=== PATIENT | male | born 1945 | race Caucasian/White ===

== ENCOUNTER 2016-07-25 12:11 | Outpatient (RCR) | payer MEDICARE ==
[2016-06-20 14:21] LABS: BASOPHILS % (AUTO) 0 % (0-10); EOSINOPHILS # (AUTO) 0.1 10^3/uL (0.0-0.3); EOSINOPHILS % (AUTO) 2 % (0-10); LYMPHOCYTES # (AUTO) 1.8 X 10^3 (1.0-4.0); LYMPHOCYTES % (AUTO) 24 % (12-44); MEAN CORPUSCULAR HEMOGLOBIN 32 PG (25-34); MEAN CORPUSCULAR HGB CONC 34 G/DL (32-36); MEAN CORPUSCULAR VOLUME 93 FL (80-99); MEAN PLATELET VOLUME 8.6 FL (7.4-10.4); MONOCYTES # (AUTO) 0.8 X 10^3 (0.0-1.0); MONOCYTES % (AUTO) 11 % (0-12); NEUTROPHILS # (AUTO) 4.6 X 10^3 (1.8-7.8); NEUTROPHILS % (AUTO) 63 % (42-75); PLATELET COUNT 162 10^3/uL (130-400); RED BLOOD COUNT 4.47 10^6/uL (4.35-5.85); RED CELL DISTRIBUTION WIDTH 13.5 % (10.0-14.5); WHITE BLOOD COUNT 7.3 10^3/uL (4.3-11.0)
[2016-06-20 14:57] LABS: ALBUMIN 3.9 G/DL (3.2-4.5); BILIRUBIN,TOTAL 0.6 MG/DL (0.1-1.0); CALCIUM 10.3 MG/DL (8.5-10.1); CREATININE SERUM 1.99 MG/DL (0.60-1.30); TOTAL PROTEIN 7.7 G/DL (6.4-8.2)
[2016-07-11 15:10] LABS: BASOPHILS % (AUTO) 1 % (0-10); EOSINOPHILS # (AUTO) 0.1 10^3/uL (0.0-0.3); EOSINOPHILS % (AUTO) 2 % (0-10); LYMPHOCYTES # (AUTO) 1.6 X 10^3 (1.0-4.0); LYMPHOCYTES % (AUTO) 24 % (12-44); MEAN CORPUSCULAR HEMOGLOBIN 32 PG (25-34); MEAN CORPUSCULAR HGB CONC 34 G/DL (32-36); MEAN CORPUSCULAR VOLUME 92 FL (80-99); MEAN PLATELET VOLUME 9.2 FL (7.4-10.4); MONOCYTES # (AUTO) 0.9 X 10^3 (0.0-1.0); MONOCYTES % (AUTO) 13 % (0-12); NEUTROPHILS # (AUTO) 4.2 X 10^3 (1.8-7.8); NEUTROPHILS % (AUTO) 61 % (42-75); PLATELET COUNT 170 10^3/uL (130-400); RED BLOOD COUNT 4.51 10^6/uL (4.35-5.85); RED CELL DISTRIBUTION WIDTH 13.6 % (10.0-14.5); WHITE BLOOD COUNT 6.8 10^3/uL (4.3-11.0)
[2016-07-11 15:12] LABS: PEP REPORT SEE PATH REPORT
[2016-07-11 15:38] LABS: ALBUMIN 3.9 G/DL (3.2-4.5); BILIRUBIN,TOTAL 0.5 MG/DL (0.1-1.0); CALCIUM 9.9 MG/DL (8.5-10.1); CREATININE SERUM 1.8 MG/DL (0.60-1.30); TOTAL PROTEIN 7.7 G/DL (6.4-8.2)
[2016-07-12 02:44] LABS: LIGHT CHAIN KAPPA SERUM QUANT 67.94 mg/L (3.30-19.40); LIGHT CHAIN LAMBDA SERUM QUANT 25.25 mg/L (5.71-26.30)
[2016-07-12 08:01] LABS: PTH INTACT IRMA 40 pg/mL (10-65)
[2016-07-14 06:45] LABS: CLIN PATHOLOGY REPORT FOOTNOTE; SERUM PROTEIN ELEC DETAIL L-16-0014220
[~2016-07-25 12:11] MED LIST: ASP325T PO; ASPI325T32 PO; METO-333 PO; RAMI2.5C PO
[2016-07-25 12:24] LABS: RED BLOOD COUNT 4.49 10^6/uL (4.35-5.85); RETICULOCYTE % 0.92 % (0.50-2.40)
[2016-07-27 13:58] LABS: IMMUNOGLOBULIN IGG 1355 MG/DL (672-1680)
[2016-07-27 13:59] LABS: IMMUNOGLOBULIN IGM 917 H MG/DL (47-209)
[2016-07-27 14:03] LABS: IMMUNOGLOBULIN IGA 201 MG/DL (71-263)
== END 2016-09-18 | disposition home or self-care (01) ==
LOC: ONC 12:11
PROVIDERS: ATTEND Internal Medicine Hematology & Oncology
DX: D69.59 Other secondary thrombocytopenia (principal); E11.22 Type 2 diabetes mellitus with diabetic chronic kidney disease; N18.3 Chronic kidney disease, stage 3 (moderate); E83.52 Hypercalcemia; I25.10 Atherosclerotic heart disease of native coronary artery without angina pectoris; Z79.899 Other long term (current) drug therapy
CPT/HCPCS: 36415; 80053; 80074; 82232; 82784; 83735; 83883; 83970; 84153; 84155; 84165; 85025; 85045; 85810; 86880; 99213; 99214

== ENCOUNTER → 2017-09-19 | Outpatient (CLI) | payer MEDICARE ==
--- NOTE | 2017-09-19 13:43 | Diagnostic Imaging Report ---
INDICATION: Low back pain. TIME OF EXAM: 1:20 PM. COMPARISON: No prior studies are available for comparison. FINDINGS: The curvature of the lumbar spine is normal. There appears to be a mild inferior endplate compression involving the L2 vertebral body, age indeterminate. The remaining lumbar vertebrae demonstrate normal stature. No retropulsion is seen. There is significant degenerative disc disease at the L3-4 level with disc space narrowing and marginal osteophyte formation. There is vacuum disc phenomena. The aorta is calcified. IMPRESSION: Age-indeterminate mild inferior endplate central compression of the L2 vertebral body. MRI could be performed to evaluate acuity. Dictated by: Dictated on workstation # [id number]
== END ==
LOC: RAD 12:49
PROVIDERS: ATTEND Nurse Practitioner Family
DX: M54.5 Low back pain (principal)
CPT/HCPCS: 72100

== ENCOUNTER → 2017-09-25 | Outpatient (CLI) | payer MEDICARE ==
--- NOTE | 2017-09-25 10:47 | Diagnostic Imaging Report ---
CLINICAL INDICATION: Patient has low back pain which is not getting better. EXAM: MRI of the lumbar spine performed without IV contrast. Sagittal T2, sagittal T1, sagittal T2 fat-sat, coronal T2, and axial T2. COMPARISON: X-ray of the lumbar spine dated 09/19/2017. CT scan of the abdomen and pelvis without contrast dated 03/15/2011. FINDINGS: There is a 3.1 cm septated appearing cyst involving the mid portion of the left kidney. Patient was noted to have a cyst on the prior study and is not significantly changed in size. There is a roughly 40% compression deformity involving the L2 vertebral body which demonstrates moderate amount of marrow edema. There is no retropulsed fragment seen. There is mixed Modic type I and type II degenerative signal changes involving the L3-L4 endplates. There is mild Modic type II degenerative signal changes involving the L4-L5 and L5-S1 levels. The remainder of the lumbar vertebral body signal is unremarkable. Visualized portion of the distal thoracic spinal cord, conus medullaris, and cauda equina nerve roots are unremarkable. There is no significant paraspinal soft tissue abnormality. There is multilevel thoracolumbar spine degenerative disease with hypertrophic spurs and facet arthropathy. L1-L2: There is mild asymmetric diffuse disc bulge which causes mild central canal narrowing and no significant neural foramen narrowing. T12-L1: There is mild diffuse disc bulge and mild loss of intervertebral disc height. There is mild impression upon the thecal sac anteriorly. There is no significant neural foramen narrowing. L1-L2: There is xnmb-yl-yoosfwvk facet arthropathy and minimal ligament flavum buckling. There is no significant posterior disc bulge. There is mild left neural foramen narrowing. There is no significant central spinal canal or right neural foramen narrowing. L2-L3: There is moderate bilateral facet arthropathy and ligament flavum buckling. There is a small disc extrusion/herniation with disc spurs extending into the left foraminal region causing moderate left neural foramen narrowing. There is also facet arthropathy and mild disc bulge causing moderate right neural foramen narrowing. There is moderate central canal narrowing. L3-L4: There is a diffuse disc bulge with moderate to severe loss of intervertebral disc height, endplate irregularity and disc spurs extending into the foraminal regions bilaterally. There is severe left facet arthropathy/hypertrophy and moderate right facet arthropathy. There is ligament flavum buckling. There is severe central canal narrowing and severe bilateral neural foramen narrowing. L4-5: There is mild diffuse disc bulge and moderate right facet arthropathy and moderate left facet arthropathy/hypertrophy. There is ligament flavum buckling. There is wezp-jf-fdiwfkpl central canal narrowing and trqp-tx-mxdseylt bilateral neural foramen narrowing. L5-S1: There is no significant disc bulge. There is moderate bilateral facet arthropathy. There is no significant central canal narrowing. There is no significant neural foramen narrowing. IMPRESSION: 1: There is an acute or subacute compression deformity of the L2 vertebral body. There is no retropulsed fragment. 2: There is ajpkkiqc-wh-idlqjt multilevel lumbar spine degenerative disc disease with diffuse disc bulges, disc herniations, and facet arthropathy. 3: There is no significant change to the septated left renal cyst. Report was called to Roberta Mahmood APRN by ricky at 10:46am. Dictated by: Dictated on workstation # [id number]
== END ==
LOC: RAD 07:51
PROVIDERS: ATTEND Nurse Practitioner Family
DX: M51.26 Other intervertebral disc displacement, lumbar region (principal); M51.36 Other intervertebral disc degeneration, lumbar region; M46.86 Other specified inflammatory spondylopathies, lumbar region
CPT/HCPCS: 72148

== ENCOUNTER 2019-08-03 09:49 | Inpatient (IN) | payer MEDICARE ==
[~2019-08-03] VITALS: Ht 177.8 cm; Wt 92.7 kg
[2019-08-03] MEDS ORDERED: fentaNYL INJECTION 100 MCG/2 ML AMP IVP STA (10:03)
--- NOTE | 2019-08-03 10:12 | ED Fall/Injury ---
General Chief Complaint: Chest Wall Stated Complaint: RECENT FALL/ABD PAIN Source: patient History of Present Illness Date Seen by Provider: Aug 03, 2019 Time Seen by Provider: 09:53 Initial Comments PT ARRIVES VIA POV FROM HOME, NEEDS WHEELCHAIR ON ARRIVAL STATES LAST Sunday07/29/19, HE STARTED TO GET ON A LADDER, STEPPED ON THE FIRST RUNG AND THE LADDER FELL, AND HE FELL BACKWARDS AND LANDED ON HIS BACK ON THE RAMP TO THE PORCH. DID BUMP THE BACK OF HIS HEAD, BUT NO LOSS OF CONSCIOUSNESS STATES HIS BACK DID NOT HURT AT THE TIME, AND DID NOT HAVE PAIN ANYWHERE UNTIL SUNDAY SINCE SUNDAY (THANKSGIVING) HE HAS HAD SEVERE PAIN ALL ACROSS HIS UPPER ABDOMEN (LATER STATES HE IS ALSO HAVING PAIN ALL ACROSS HIS BACK WELL) PAIN IS SEVERE WITH MOVEMENTS, BREATHING, COUGHING OR SNEEZING,OR WITH LAYING DOWN STATES IT FEELS BEST WHEN HE IS BENT AT WAIST NO NAUSEA/VOMITING/DIARRHEA NO FEVER NO SIGNIFICANT COUGH NO CHEST PAIN NO SHORTNESS OF BREATH, JUST HURTS TO BREATHE NO PARESTHESIAS OR MOTOR DEFICITS NO PROBLEMS URINATING OR HAVING BM'S NO RELIEF WITH TYLENOL/MOTRIN OR TRAMADOL--TOOK 1 DOSE OF TRAMADOL YESTERDAY WITHOUT RELIEF. 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 LOMAS Allergies and Home Medications Allergies Coded Allergies: IV Dye, Iodine Containing (Verified Allergy, Unknown, 03/20/06) Ibbumxc-Lxp-Dyt Reductase Inhibitor (Verified Allergy, Unknown, 03/15/11) morphine (Verified Allergy, Unknown, 03/20/06) Home Medications Aspirin 325 Mg Tab, 325 MG PO DAILY, (Reported) Metoprolol Tartrate 25 Mg Tablet, 25 MG PO BID, (Reported) Ramipril 2.5 Mg Capsule, 2.5 MG PO DAILY, (Reported) Patient Home Medication List Home Medication List Reviewed: Yes Review of Systems Review of Systems Constitutional: no symptoms reported Eyes: No Symptoms Reported Ears, Nose, Mouth, Throat: no symptoms reported Respiratory: see HPI Cardiovascular: see HPI Gastrointestinal: see HPI Genitourinary: no symptoms reported Musculoskeletal: see HPI Skin: no symptoms reported Psychiatric/Neurological: Anxiety; Denies Headache, Denies Numbness, Denies Paresthesia, Denies Seizure, Denies Tingling, Denies Weakness Past Vgbvjto-Sbqrff-Qlfivg Hx Patient Social History Alcohol Use: Denies Use Recreational Drug Use: No Smoking Status: Never a Smoker Recent Foreign Travel: No Contact w/Someone Who Travel: No Past Medical History Surgeries: Yes (UMBILICAL HERNIA REPAIR; LIVER BIOPSY; CHOLECYSTECTOMY; CARDIAC CATH WITH ANGIOPLASTY AND STENT X 1; KYPOHOPLASTY L2, L5; LUMBAR LAMINECTOMY L3- L5) Abdominal, Cardiac, Coronary Stent, Gallbladder, Orthopedic Respiratory: No Cardiac: Yes (CARDIAC CATH WITH ANGIOPLASTY AND STENT X 1 ) Coronary Artery Disease, Heart Attack, High Cholesterol, Hypertension Neurological: No Reproductive Disorders: No Genitourinary: Yes (CHRONIC RENAL INSUFFICIENCY) Renal Failure Gastrointestinal: Yes (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 ) Diabetes, Non-Insulin dep HEENT: No Cancer: No Psychosocial: No Integumentary: No Blood Disorders: No Physical Exam Vital Signs Vital Signs - First Documented 08/03/19 10:01 Temp 36.4 Pulse 84 Resp 20 B/P (MAP) 118/83 (95) Pulse Ox 99 O2 Delivery Room Air Capillary Refill : Height, Weight, BMI Height: '" Weight: lbs. oz. kg; BMI Method: General Appearance: other (OBESE, SITTING IN CHAIR BENT AT WAIST. LOOKS UNCOMFORTABLE.) Neck: non-tender Cardiovascular: regular rate, rhythm, no murmur Respiratory: other (DIFFUSE MID AND LOWER CHEST TENDERNESS) Gastrointestinal: soft, tenderness (DIFFUSE MID AND UPPER ABDOMINAL TENDERNESS) Back: decreased range of motion, other (DIFFUSE TENDERNESS TO ENTIRE BACK, BUT MOST TENDER IN MID BACK) Extremities: normal capillary refill, pedal edema (1 + BILATERALLY) Neurologic/Psychiatric: fagot heater helper II-XII nml as tested, no motor/sensory deficits, alert, oriented x 3 Skin: normal color, warm/dry Progress/Results/Core Measures Results/Orders Lab Results Laboratory Tests Test 08/03/19 10:12 08/03/19 11:30 08/03/19 16:55 Range/Units White Blood Count 7.3 4.3-11.0 10^3/uL Red Blood Count 4.54 4.35-5.85 10^6/uL Hemoglobin 14.3 13.3-17.7 G/DL Hematocrit 42 40-54 % Mean Corpuscular Volume 92 80-99 FL Mean Corpuscular Hemoglobin 32 25-34 PG Mean Corpuscular Hemoglobin Concent 34 32-36 G/DL Red Cell Distribution Width 13.6 10.0-14.5 % Platelet Count 121 L 130-400 10^3/uL Mean Platelet Volume 9.9 7.4-10.4 FL Neutrophils (%) (Auto) 72 42-75 % Lymphocytes (%) (Auto) 17 12-44 % Monocytes (%) (Auto) 10 0-12 % Eosinophils (%) (Auto) 1 0-10 % Basophils (%) (Auto) 0 0-10 % Neutrophils # (Auto) 5.2 1.8-7.8 X 10^3 Lymphocytes # (Auto) 1.2 1.0-4.0 X 10^3 Monocytes # (Auto) 0.7 0.0-1.0 X 10^3 Eosinophils # (Auto) 0.1 0.0-0.3 10^3/uL Basophils # (Auto) 0.0 0.0-0.1 10^3/uL Prothrombin Time 13.7 12.2-14.7 SEC INR Comment 1.0 0.8-1.4 Activated Partial Thromboplast Time 21 L 24-35 SEC Sodium Level 136 135-145 MMOL/L Potassium Level 4.3 3.6-5.0 MMOL/L Chloride Level 104 98-107 MMOL/L Carbon Dioxide Level 18 L 21-32 MMOL/L Anion Gap 14 5-14 MMOL/L Blood Urea Nitrogen 21 H 7-18 MG/DL Creatinine 1.76 H 0.60-1.30 MG/DL Estimat Glomerular Filtration Rate 38 BUN/Creatinine Ratio 12 Glucose Level 135 H 70-105 MG/DL Calcium Level 10.8 H 8.5-10.1 MG/DL Corrected Calcium 10.7 H 8.5-10.1 MG/DL Magnesium Level 1.7 1.6-2.4 MG/DL Total Bilirubin 0.8 0.1-1.0 MG/DL Aspartate Amino Transf (AST/SGOT) 21 5-34 U/L Alanine Aminotransferase (ALT/SGPT) 21 0-55 U/L Alkaline Phosphatase 68 40-136 U/L Total Creatine Kinase 44 30-200 U/L Creatine Kinase MB 2.2 <6.6 NG/ML Troponin I < 0.028 <0.028 NG/ML B-Type Natriuretic Peptide 98.8 <100.0 PG/ML Total Protein 8.4 H 6.4-8.2 GM/DL Albumin 4.1 3.2-4.5 GM/DL Amylase Level 54 25-125 U/L Lipase 24 8-78 U/L Urine Color YELLOW Urine Clarity CLEAR Urine pH 5.5 5-9 Urine Specific [place] 1.025 H 1.016-1.022 Urine Protein NEGATIVE NEGATIVE Urine Glucose (UA) NEGATIVE NEGATIVE Urine Ketones NEGATIVE NEGATIVE Urine Nitrite NEGATIVE NEGATIVE Urine Bilirubin NEGATIVE NEGATIVE Urine Urobilinogen 0.2 < = 1.0 MG/DL Urine Leukocyte Esterase NEGATIVE NEGATIVE Urine RBC (Auto) NEGATIVE NEGATIVE Urine RBC NONE /HPF Urine WBC NONE /HPF Urine Squamous Epithelial Cells RARE /HPF Urine Crystals NONE /LPF Urine Bacteria NEGATIVE /HPF Urine Casts NONE /LPF Urine Mucus SMALL H /LPF Urine Culture Indicated NO My Orders Orders - STEVE MANZO DO Ed Iv/Invasive Line Start (08/03/19 10:03) Ekg Tracing (08/03/19 10:03) Monitor-Rhythm Ecg Trace Only (08/03/19 10:03) Chest 1 View, Ap/Pa Only (08/03/19 10:03) Amylase (08/03/19 10:03) BNP (08/03/19 10:03) Cbc With Automated Diff (08/03/19 10:03) Comprehensive Metabolic Panel (08/03/19 10:03) Creatine Kinase (08/03/19 10:03) Creatine Kinase Mb (08/03/19 10:03) Lipase (08/03/19 10:03) Magnesium (08/03/19 10:03) Protime With Inr (08/03/19 10:03) Partial Thromboplastin Time (08/03/19 10:03) Ua Culture If Indicated (08/03/19 10:03) Troponin I (08/03/19 10:03) Fentanyl Injection (Sublimaze Injection (08/03/19 10:03) Ct Chest/Abdomen/Pelvis Wo (08/03/19 10:03) Fentanyl Injection (Sublimaze Injection (08/03/19 11:00) Fentanyl Injection (Sublimaze Injection (08/03/19 11:00) Fentanyl Injection (Sublimaze Injection (08/03/19 11:45) Orphenadrine Injection (Norflex Injectio (08/03/19 12:30) Diphenhydramine Injection (Benadryl Inje (08/03/19 12:30) Hydromorphone Injection (Dilaudid Inject (08/03/19 13:15) Ed Iv/Invasive Line Start (08/03/19 13:13) Ns Iv 1000 Ml (Sodium Chloride 0.9%) (08/03/19 13:13) Hydromorphone Injection (Dilaudid Inject (08/03/19 15:30) Orphenadrine Injection (Norflex Injectio (08/03/19 15:30) Hydromorphone Injection (Dilaudid Inject (08/03/19 16:45) Ed Iv/Invasive Line Start (08/03/19 16:55) Ed Iv/Invasive Line Start (08/03/19 16:55) Ns Iv 1000 Ml (Sodium Chloride 0.9%) (08/03/19 16:55) Medications Given in ED Current Medications Medications Dose Ordered Sig/Edelmira Route Start Time Stop Time Status Last Admin Dose Admin Diphenhydramine HCl 25 mg ONCE ONCE IVP 08/03/19 12:30 08/03/19 12:31 DC 08/03/19 12:29 25 MG Fentanyl Citrate 50 mcg ONCE ONCE IVP 08/03/19 11:00 08/03/19 11:01 DC 08/03/19 10:55 50 MCG Fentanyl Citrate 50 mcg ONCE ONCE IVP 08/03/19 11:00 08/03/19 11:01 DC 08/03/19 11:11 50 MCG Fentanyl Citrate 50 mcg ONCE ONCE IVP 08/03/19 11:45 08/03/19 11:46 DC 08/03/19 11:50 50 MCG Hydromorphone HCl 0.5 mg ONCE ONCE IV 08/03/19 16:45 08/03/19 16:46 DC 08/03/19 17:10 0.5 MG Hydromorphone HCl 1 mg ONCE ONCE IV 08/03/19 13:15 08/03/19 13:16 DC 08/03/19 13:19 1 MG Hydromorphone HCl 1 mg ONCE ONCE IV 08/03/19 15:30 08/03/19 15:31 DC 08/03/19 16:02 1 MG Orphenadrine Citrate 60 mg ONCE ONCE IV 08/03/19 12:30 08/03/19 12:31 DC 08/03/19 12:28 60 MG Orphenadrine Citrate 60 mg ONCE ONCE IV 08/03/19 15:30 08/03/19 15:31 DC 08/03/19 16:02 60 MG Vital Signs/I&O 08/03/19 10:01 Temp 36.4 Pulse 84 Resp 20 B/P (MAP) 118/83 (95) Pulse Ox 99 O2 Delivery Room Air Progress Progress Note : Progress Note EXHAUSTIVE EFFORTS TO OBTAIN CT --PT STATES IT HURTS TO LAY FLAT--STATES HIS BACK MUSCLES "SPASM", AND HE IS HAVING PAIN IN SIDES OF HIS ABDOMEN AND REFUSES TO LAY DOWN ON CT TABLE--GIVEN FENTANYL, NORFLEX, DILAUDID--MULTIPLE DOSES OF EACH. REFUSES TO TAKE BENADRYL--STATES IT "CAUSES THE OPPOSITE EFFECT" EXPLAINED TO PT MULTIPLE TIMES THE IMPORTANCE OF THE TEST, HE IS STILL CONTINUING TO C/O "SEVERE" PAIN IN HIS ABDOMEN AND NOW HIS BACK--HAD NOT C/O SIGNIFICANT PAIN IN BACK UNTIL HE WENT TO CT. 1310--STILL REFUSING TO ATTEMPT TO URINATE--STATES HE "DOESN'T NEED TO" --DENIES HAVING ANY PROBLEMS URINATING PRIOR TO COMING TO ER STRAIGHT CATH UA EVENTUALLY DONE TO OBTAIN UA 1700--CONTINUES TO C/O PAIN, BUT PAIN IS NOW THE WORST IN RUQ/ RIGHT FLANK/ RIGHT POSTERIOR RIB AREA AND MID BACK Initial ECG Impression Date: Aug 03, 2019 Initial ECG Impression Time: 10:34 Initial ECG Rate: 70 Initial ECG Rhythm: Normal Sinus Initial ECG Impression: Nonspecific Changes, 1st Degree AV Block Diagnostic Imaging Comments CXR--NO ACUTE PROCESS, PER RADIOLOGIST REPORT AT 1123 CT CHEST/ABDOMEN/PELVIS--NO ACUTE PROCESS IN CHEST; MULTIPLE VASCULAR CALCIFICATIONS IN CHEST AND ABDOMEN; ACUTE COMPRESSION FX T7; ENLARGED GALLBLADDER WITH MULTIPLE STONES, OTHERWISE NO ACUTE INTRA-ABDOMINAL PROCESS--PER RADIOLOGIST REPORT AT 1825 Reviewed: Reviewed by Me Consults : Consulting Physician: A Departure Communication (Admissions) 3276--CONTACTED DR. FLYNN, ASKED HIM TO COME TO ER TO SEE PT, PT IS NOT ABLE TO TOLERATE CT. HE WILL NOT BE COMING IN TO SEE PT, ADVISES TO START GIVING DILAUDID AND HAVE CT DONE. 1825--CONTACTED DR. FLYNN, AND REVIEWED CT RESULTS. HE ADVISES TO ADMIT, START CIPRO AND FLAGYL, CONTINUE DILAUDID, CONSULT DR. MAS, CARDIOLOGY, AND ORTHOPEDICS Impression Primary Impression: S/P FALL FROM BOTTOM RUNG OF LADDER Additional Impressions: ACUTE T7 COMPRESSION FRACTURE Cholelithiasis Intractable abdominal pain Intractable back pain Chronic renal insufficiency HX OF [place] WITH STENT AND ANGIOPLASTY Osteoporosis NIDDM HTN (hypertension) Disposition: ADMITTED INPATIENT Condition: Stable Admissions Decision to Admit Reason: Admit from ER (Trauma) Decision to Admit/Date: Aug 03, 2019 Time/Decision to Admit Time: 18:25 Departure-Patient Inst. Referrals: LOGAN MAS MD (PCP/Family) Primary Care Physician STEVE MANZO DO Aug 03, 2019 10:12 POS
[2019-08-03 10:22] LABS: BASOPHILS % (AUTO) 0 % (0-10); EOSINOPHILS # (AUTO) 0.1 10^3/uL (0.0-0.3); EOSINOPHILS % (AUTO) 1 % (0-10); HEMATOCRIT 42 % (40-54); HEMOGLOBIN 14.3 G/DL (13.3-17.7); LYMPHOCYTES # (AUTO) 1.2 X 10^3 (1.0-4.0); LYMPHOCYTES % (AUTO) 17 % (12-44); MEAN CORPUSCULAR HEMOGLOBIN 32 PG (25-34); MEAN CORPUSCULAR HGB CONC 34 G/DL (32-36); MEAN CORPUSCULAR VOLUME 92 FL (80-99); MEAN PLATELET VOLUME 9.9 FL (7.4-10.4); MONOCYTES # (AUTO) 0.7 X 10^3 (0.0-1.0); MONOCYTES % (AUTO) 10 % (0-12); NEUTROPHILS # (AUTO) 5.2 X 10^3 (1.8-7.8); NEUTROPHILS % (AUTO) 72 % (42-75); PLATELET COUNT 121 10^3/uL (130-400); RED CELL DISTRIBUTION WIDTH 13.6 % (10.0-14.5); WHITE BLOOD COUNT 7.3 10^3/uL (4.3-11.0)
--- NOTE | 2019-08-03 10:34 | Diagnostic Imaging Report ---
INDICATION: Fall, pain. FINDINGS: Lungs are clear. There is no failure, effusion or pneumothorax. IMPRESSION: No acute appearing abnormality. Dictated by: Dictated on workstation # [id number]
[2019-08-03 10:36] LABS: PROTHROMBIN TIME PATIENT 13.7 SEC (12.2-14.7)
[2019-08-03] MEDS ORDERED: fentaNYL INJECTION 100 MCG/2 ML AMP IVP ONE ×3 (11:00→11:45)
[2019-08-03 12:03] LABS: ALANINE AMINOTRANSFERASE 21 U/L (0-55); ALBUMIN 4.1 GM/DL (3.2-4.5); ALKALINE PHOSPHATASE 68 U/L (40-136); AMYLASE 54 U/L (25-125); BILIRUBIN,TOTAL 0.8 MG/DL (0.1-1.0); BUN/CREATININE RATIO 12; CALCIUM 10.8 MG/DL (8.5-10.1); CARBON DIOXIDE 18 MMOL/L (21-32); CHLORIDE 104 MMOL/L (98-107); CREATINE KINASE 44 U/L (30-200); CREATININE SERUM 1.76 MG/DL (0.60-1.30); GFR ESTIMATED 38; GLUCOSE 135 MG/DL (70-105); LIPASE 24 U/L (8-78); MAGNESIUM 1.7 MG/DL (1.6-2.4); POTASSIUM 4.3 MMOL/L (3.6-5.0); SODIUM 136 MMOL/L (135-145); TOTAL PROTEIN 8.4 GM/DL (6.4-8.2)
[2019-08-03 12:10] LABS: CREATINE KINASE MB 2.2 NG/ML (<6.6)
[2019-08-03] MEDS ORDERED: ORPHENADRINE 60 MG/2 ML (NORFLEX) AMP IV ONE ×2 (12:30→15:30)
[2019-08-03] MEDS ORDERED: diphenhydrAMINE 50 MG/ML INJ (BENADRYL) IVP ONE (12:30)
[2019-08-03] MEDS ORDERED: NS IV 1000 ML 1,000 ML IV SCH ×2 (13:13→16:55)
[2019-08-03] MEDS ORDERED: HYDROmorphone 2 MG/ML VIAL (DILAUDID) IV ONE ×3 (13:15→16:45)
[2019-08-03 17:05] LABS: BILIRUBIN,URINE NEGATIVE (NEGATIVE); CLARITY,URINE CLEAR; COLOR,URINE YELLOW; GLUCOSE, URINE (UA) NEGATIVE (NEGATIVE); KETONES,URINE NEGATIVE (NEGATIVE); LEUKOCYTE ESTERASE ,URINE NEGATIVE (NEGATIVE); NITRITE,URINE NEGATIVE (NEGATIVE); PH,URINE 5.5 (5-9); PROTEIN,URINE NEGATIVE (NEGATIVE)
[2019-08-03 17:15] LABS: BACTERIA,URINE NEGATIVE /HPF; SQUAMOUS EPITHELIAL CELL,UR RARE /HPF
--- NOTE | 2019-08-03 18:22 | Diagnostic Imaging Report ---
PROCEDURE: CT chest, abdomen, and pelvis without contrast. TECHNIQUE: Multiple contiguous axial images were obtained through the chest, abdomen, and pelvis without the use of intravenous contrast. Auto Exposure Controls were utilized during the CT exam to meet ALARA standards for radiation dose reduction. DATE: August 03, 2019. COMPARISON: Chest radiograph August 03, 2019. CT abdomen and pelvis March 15, 2011. INDICATION: 74-year-old male, fall off ladder on Sunday. Landed on back. Back pain and left and right anterior chest pain. FINDINGS: There are limitations for evaluation of the abdominal organs, neoplastic processes, abscess, and limited evaluation of the vasculature relating to the lack of intravenous contrast. There is no identified pulmonary nodule or lung mass. There is no focal airspace consolidation. There is no pneumothorax. There is no pleural effusion. There is respiratory motion artifact present. The heart is not enlarged. There are coronary artery calcifications. There is no pericardial effusion. There is no identified mediastinal hematoma. There is no identified abnormally enlarged mediastinal, hilar or axillary lymph node which meets CT size criteria for adenopathy. The liver is unremarkable in size and contour. There are limitations for assessment of abdominal parenchymal organ injuries given lack of intravenous contrast. There is no identified perihepatic fluid. The gallbladder is distended with multiple gallstones. There are no findings to specifically suggest acute cholecystitis. There is no biliary ductal dilation. The main pancreatic duct is not grossly dilated. Very limited noncontrast evaluation of the pancreatic parenchyma is unremarkable. The spleen is not enlarged. There is no fluid immediately adjacent to the spleen. The adrenal glands are unremarkable. There is a low-attenuation left renal lesion with thin peripheral calcification, measuring 2.6 cm in size, with internal attenuation of 20 Hounsfield units. This does not meet strict diagnostic criteria for a benign renal cyst. The urinary collecting systems are not distended. There is no identified renal or ureteral stone. There is no prominent urinary bladder wall thickening. There is an outpouching of the right anterior urinary bladder extending towards the right inguinal canal without current hernia. There is mild diverticulosis without evidence of acute diverticulitis. There is no evidence of acute appendicitis. The intestinal tract is not distended. There is a moderate size hiatal hernia. There is no free intraperitoneal air. There is no drainable fluid collection. There is no free pelvic fluid. There are atherosclerotic calcifications. There is no identified abnormally enlarged lymph node in the abdomen or pelvis which meets CT size criteria for adenopathy. There are bilateral sacroiliac degenerative changes. There are postoperative changes of the lumbar spine. There are multilevel degenerative changes of the spine. There are bilateral glenohumeral arthritic changes. There are prior kyphoplasty changes of L5 and L2. There is a superior endplate concavity of L3 which is age indeterminate. There is a compression type fracture of T7 with approximately 50% height loss and no retropulsed fracture fragment. There is no clear fracture involvement of the posterior elements. The L3 superior endplate concavity is more prominent since September 25, 2017. Comparison imaging of the thoracic abnormality is not available. IMPRESSION: CT chest, abdomen and pelvis. 1. Compression type fracture of T7 with approximately 50% height loss and no retropulsed fracture fragment which appears most likely acute although comparison imaging is not available to assess for stability. 2. Technically age indeterminate superior endplate concavity of L3 which may relate to a new Schmorl's node since prior MRI lumbar spine of September 25, 2017. 3. No additional identified acute posttraumatic abnormality at the level of the chest, abdomen, or pelvis. Dictated by: Dictated on workstation # [id number]
[2019-08-03] MEDS ORDERED: CIPROFLOXACIN IV 400MG/200ML 200 ML IV ONE (18:45)
--- NOTE | 2019-08-03 20:03 | NUR ---
KAYLA DOTSON admitted to room 426-1, with an admitting diagnosis of S/P FALL, T7 COMPRESSION FX, CHOLELITHIASIS , on 08/03/19 from ED via , accompanied by STAFF AND FRIEND. KAYLA DOTSON introduced to surroundings, call light, bed controls, phone, TV, temperature control, lights, meal times, smoking policy, visitor policy, side rail policy, bathrooms and showers. Patient Rights given to patient in the handbook.KAYLA DOTSON verbalizes understanding that [facility] is not responsible for the loss or damage to any personal effects or valuables that are kept in the patients posession during their hospitalization.
[2019-08-03 20:18] VITALS: BP 142/82
[2019-08-03] MEDS: D5 1/2 NS 1000 ML IV SOLUTION 1,000 ML IV SCH (20:41)
[2019-08-03] MEDS: HYDROmorphone 2 MG/ML VIAL (DILAUDID) IV PRN (20:41)
--- NOTE | 2019-08-03 20:45 | NUR ---
BUSHRA THOMAS FOR DR. CABRAL NOTIFIED OF PATIENT CONSULT. NEW ORDERS RECEIVED: THORACIC MRI IN AM
[2019-08-03] MEDS: ORPHENADRINE 60 MG/2 ML (NORFLEX) AMP IM SCH (21:59)
[2019-08-03] MEDS ORDERED: RT-ALBUTEROL SULF 2.5 MG/3 ML PRE-MIX VIAL INH PRN (22:00)
[2019-08-03] MEDS: metroNIDAZOLE 500 MG/100 ML IVPB (PRE-MIX) IV SCH (22:06)
[2019-08-04] VITALS (7 sets, daily range): BP systolic 99–157; BP diastolic 54–80
[2019-08-04] MEDS: HYDROmorphone 2 MG/ML VIAL (DILAUDID) IV PRN ×2 (04:46→16:57)
[2019-08-04] MEDS: metroNIDAZOLE 500 MG/100 ML IVPB (PRE-MIX) IV SCH (05:05)
[2019-08-04 05:31] LABS: BASOPHILS % (AUTO) 0 % (0-10); EOSINOPHILS # (AUTO) 0.1 10^3/uL (0.0-0.3); EOSINOPHILS % (AUTO) 1 % (0-10); HEMATOCRIT 40 % (40-54); HEMOGLOBIN 13.3 G/DL (13.3-17.7); LYMPHOCYTES % (AUTO) 15 % (12-44); MEAN CORPUSCULAR HEMOGLOBIN 32 PG (25-34); MEAN CORPUSCULAR HGB CONC 34 G/DL (32-36); MEAN CORPUSCULAR VOLUME 94 FL (80-99); MEAN PLATELET VOLUME 9.7 FL (7.4-10.4); MONOCYTES # (AUTO) 0.9 X 10^3 (0.0-1.0); MONOCYTES % (AUTO) 13 % (0-12); NEUTROPHILS # (AUTO) 4.5 X 10^3 (1.8-7.8); NEUTROPHILS % (AUTO) 70 % (42-75); PLATELET COUNT 89 10^3/uL (130-400); RED CELL DISTRIBUTION WIDTH 13.9 % (10.0-14.5); WHITE BLOOD COUNT 6.4 10^3/uL (4.3-11.0)
[2019-08-04] MEDS: LORazepam INJ 2 MG/ML (ATIVAN) VIAL IVP PRN (05:39)
[2019-08-04] MEDS: HYDROcodone/APAP 7.5 MG/325 MG (LORTAB, LORCET PLUS) TABLET PO PRN (05:39)
[2019-08-04 05:57] LABS: ALBUMIN 3.6 GM/DL (3.2-4.5); BILIRUBIN,TOTAL 0.8 MG/DL (0.1-1.0); CALCIUM 10.1 MG/DL (8.5-10.1); CREATININE SERUM 1.59 MG/DL (0.60-1.30); POTASSIUM 4.9 MMOL/L (3.6-5.0); TOTAL PROTEIN 7.4 GM/DL (6.4-8.2)
[2019-08-04] MEDS: inSUlin ASPART (NovoLOG) 1 UNIT/0.01 ML (CHARGE PER UNIT) SC SCH ×4 (05:57→21:41)
[2019-08-04] MEDS ORDERED: CIPROFLOXACIN 400 MG/D5W 200 ML (PRE-MIX) IV SCH (06:00)
[2019-08-04] MEDS: D5 1/2 NS 1000 ML IV SOLUTION 1,000 ML IV SCH ×3 (06:13→17:52)
--- NOTE | 2019-08-04 06:46 | NUR ---
DR. MAS NOTIFIED OF PATIENT CONSULT.
--- NOTE | 2019-08-04 07:00 | NUR ---
DR. YANES NOTIFIED OF PATIENT CONSULT.
--- NOTE | 2019-08-04 08:44 | Consultation ---
History of Present Illness History of Present Illness Patient Consulted On(paris/time) 08/04/19 08:42 Date Seen by Provider: Aug 04, 2019 Time Seen by Provider: 09:00 Reason for Visit: FALL WITH BACK AND ABDOMINAL PAIN History of Present Illness PT IS A 74 Y/O MALE WHO IS KNOWN TO ME FROM CLINIC. HE PRESENTED TO THE HOSPITAL AFTER HAVING A FALL AT HOME OFF OF A LADDER EARLIER IN THE WEEK. KAYLA REPORTS THAT HE HAD SOME DISCOMFORT INITIALLY, BUT OVER THE WEEKEND HIS PAIN INTENSIFIED TO THE POINT THAT HE WAS UNABLE TO MANAGE AT HOME. HE MESSAGED HIS FRIEND WHO INSISTED ON KAYLA GOING TO THE HOSPITAL FOR EVALUATION. UPON EMERGENCY DEPARTMENT EVALUATION, HE WAS FOUND TO HAVE COMPRESSION FRACTURE OF T7 AND CHOLELITHIASIS. HE WAS ADMITTED TO DR. FLYNN FOR POSSIBLE GALLBLADDER RELATED ISSUES WELL HIS TRAUMA FROM THE FALL. Allergies and Home Medications Allergies Coded Allergies: Iodinated Contrast Media (Verified Allergy, Unknown, 03/20/06) Kmbpvwy-Zqb-Lxz Reductase Inhibitor (Verified Allergy, Unknown, 03/15/11) morphine (Verified Allergy, Unknown, 03/20/06) Home Medications Aspirin 81 Mg Tab.chew, 162 MG PO DAILY, (Reported) Cholecalciferol (Vitamin D3) 2,000 Unit Capsule, 2,000 UNIT PO DAILY, (Reported) Metoprolol Tartrate 50 Mg Tablet, 25 MG PO BID, (Reported) Vitamin E Acetate 400 Unit Capsule, 400 UNIT PO DAILY, (Reported) Patient Home Medication List Home Medication List Reviewed: Yes Past Ofnqdts-Zzuqrv-Idxnva Hx Past Med/Social Hx: Reviewed Nursing Past Med/Soc Hx, Reviewed and Corrections made Patient Social History Alcohol Use: Denies Use Recreational Drug Use: No Smoking Status: Never a Smoker 2nd Hand Smoke Exposure: No Recent Foreign Travel: No Contact w/Someone Who Travel: No Recent Infectious Disease Expo: No Recent Hopitalizations: No Physical Abuse: No Sexual Abuse: No Mistreated: No Fear: No Immunizations Up To Date Date of Pneumonia Vaccine: Jul 21, 2019 Date of Influenza Vaccine: Jul 21, 2019 Seasonal Allergies Seasonal Allergies: No Past Medical History Surgeries: Yes (UMBILICAL HERNIA REPAIR; LIVER BIOPSY; CHOLECYSTECTOMY; CARDIAC CATH WITH ANGIOPLASTY AND STENT X 1; KYPOHOPLASTY L2, L5; LUMBAR LAMINECTOMY L3- L5) Abdominal, Cardiac, Coronary Stent, Gallbladder, Orthopedic Respiratory: No Cardiac: Yes (CARDIAC CATH WITH ANGIOPLASTY AND STENT X 1 ) Coronary Artery Disease, Heart Attack, High Cholesterol, Hypertension Neurological: No Reproductive Disorders: No Genitourinary: Yes (CHRONIC RENAL INSUFFICIENCY) Renal Failure Gastrointestinal: Yes (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 ) Diabetes, Non-Insulin dep HEENT: No Cancer: No Psychosocial: No Integumentary: No Blood Disorders: No SISTER PARENTS Family Medical History Reviewed Nursing Family Hx Patient reports no known family medical history. No Pertinent Family Hx Review of Systems-General Constitutional: No chills, No fever; malaise EENTM: No hoarseness, No throat pain Respiratory: No cough, No dyspnea on exertion, No short of breath Cardiovascular: No chest pain Gastrointestinal: RUQ, LUQ, abdominal pain; No nausea, No vomiting Genitourinary: no symptoms reported Musculoskeletal: back pain Skin: other (ABRASION LEFT LOWER LEG WITH REDNESS OF LEG) Psychiatric/Neurological: Anxiety All Other Systems Reviewed Negative Unless Noted: Yes Physical Exam-General Problems Physical Exam Vital Signs Vital Signs - First Documented 08/03/19 10:01 Temp 36.4 Pulse 84 Resp 20 B/P (MAP) 118/83 (95) Pulse Ox 99 O2 Delivery Room Air Capillary Refill : Less Than 3 SecondsLess Than 3 Seconds General Appearance: WD/WN, moderate distress (DUE TO PAIN) Eyes: Bilateral Eye Normal Inspection, Bilateral Eye PERRL, Bilateral Eye EOMI HEENT: PERRL/EOMI, pharynx normal Neck: non-tender, supple, normal inspection Respiratory: chest non-tender, lungs clear, normal breath sounds, no respiratory distress, no accessory muscle use Cardiovascular: regular rate, rhythm Gastrointestinal: normal bowel sounds, soft, other (TENDER ACROSS RIGHT AND LEFT UPPER ABDOMEN) Back: vertebral tenderness (SLIGHTLY TTP OVER MID THORACIC SPINE) Neurologic/Psychiatric: alert, oriented x 3, other (ANXIOUS, IN PAIN WITH MOVEMENT) Skin: warm/dry (RIGHT LEG), other (ABRASION WITH WARMTH LEFT LEG WITH ABRASION LEFT MEDIAL LOWER LEG AT KNEE) Lymphatic: no adenopathy Assessment/Plan Assessment/Plan Admission Diagnosis/Plan ACUTE ABDOMINAL PAIN DUE TO CHOLELITHIASIS ACUTE T7 COMPRESSION FRACTURE HYPERTENSION UNCONTROLLED PAIN CELLULITIS ACUTE ABDOMINAL PAIN DUE TO CHOLELITHIASIS - DEFER TO DR. FLYNN ACUTE T7 COMPRESSION FRACTURE MRI PENDING - CONSULT WAS PLACED TO DR. CABRAL ON ADMISSION LAST NIGHT. WAIT ON HIS RECOMMENDATIONS CONTINUE WITH PAIN CONTROL WITH IV PAIN MEDICATIONS HYPERTENSION METOPROLOL RESTARTED CELLULITIS LEFT LOWER LEG - CHANGE FROM FLAGYL/CIPRO TO ZOSYN, MONITOR SYMPTOMS, RESPONSE TO TREATMENT. Admission Status: Inpatient Order (span 2 midnights) Reason for Inpatient Admission: INPT ADMISSION FOR ACUTE CHOLILITHIASIS, ACUTE T7 COMPRESSION FRACTURE - WILL NEED AT LEST 48 HOURS FOR PAIN CONTROL AND DETERMINATION OF SURGICAL INTERVENTION AND POST-OP CARE Clinical Quality Measures DVT/VTE Risk/Contraindication: Risk Factor Score Per Nursin RFS Level Per Nursing on Admit: 4+=Very High LOGAN MAS MD Aug 04, 2019 08:44 POS
--- NOTE | 2019-08-04 08:50 | Consultation-Cardiology ---
HPI-Cardiology Cardiology Consultation Date of Consultation 08/04/19 Date of Admission Time Seen by Provider: 09:00 Indication: CAD HPI Patient is a 74 y.o male with history of CAD with stent [place] [address] Turner, HTN, history of statin induced hepatitis. Presented to the ER with c/p abdominal pain. Patient fell off ladder last , did not seek medical attention at the time, c/o increased back pain throughout the week. Reports episode of abdominal pain on after eating Thanksgiving meal. Denies any chest pain or dyspnea. C/o back pain, denies any active abdominal pain. CT of chest/abdomen revealed acute T7 fracture as well as cholelithiasis. Dr. Riley consulted. 74 years old gentleman with history of coronary artery disease, had a stent in 2005, hypertension hyperlipidemia, intolerant to statin. Had history of kyphoplasty in September 2017. Sustained a fall last week, started to have abdominal pain late last week and continued. Has been having fever chills, abdominal pain, no nausea vomiting, no palpitation, no chest pain, no syncope or near syncopal episode. Noted to have cellulitis on his left leg, was not aware of it or complaining about it. Home Medications & Allergies Allergies: Coded Allergies: Iodinated Contrast Media (Verified Allergy, Unknown, 03/20/06) Kuvyptw-Lho-Ywa Reductase Inhibitor (Verified Allergy, Unknown, 03/15/11) morphine (Verified Allergy, Unknown, 03/20/06) Home Medication List Reviewed: Yes BPJ-Skbxzy-Edkfqa Hx Patient Social History Marital Status: Employed/Student: retired Alcohol Use: Denies Use Recreational Drug Use: No Smoking Status: Never a Smoker 2nd Hand Smoke Exposure: No Recent Foreign Travel: No Recent Infectious Disease Expo: No Recent Hopitalizations: Yes () Immunizations Up To Date Date of Pneumonia Vaccine: Jul 21, 2019 Date of Influenza Vaccine: Jul 21, 2019 Past Medical History CAD, HTN, statin induced hepatitis, DM Family Medical History Family Medical Hx Noncontributory to his current condition Family History: Patient reports no known family medical history. Review of Systems-General Review of Systems Constitutional: no symptoms reported, see HPI; No dizziness, No malaise, No weakness EENTM: see HPI; No double vision, No vision loss Respiratory: see HPI; No cough, No dyspnea on exertion, No hemoptysis, No orthopnea, No short of breath Cardiovascular: see HPI; No chest pain, No edema; Hx of Intervention; No palpitations, No syncope; vascular heart diseas Gastrointestinal: RUQ, see HPI, abdominal pain; No constipation, No diarrhea Genitourinary: no symptoms reported, see HPI; No frequency, No hematuria Musculoskeletal: see HPI Skin: see HPI, change in color, change in hair/nails, other (Cellulitis on the left leg) Psychiatric/Neurological: Anxiety; Denies Headache, Denies Numbness, Denies Paresthesia, Denies Seizure, Denies Tingling, Denies Weakness Reviewed Test Results Reviewed Test Results Lab Laboratory Tests 08/03/19 10:12: White Blood Count 7.3, Red Blood Count 4.54, Hemoglobin 14.3, Hematocrit 42, Mean Corpuscular Volume 92, Mean Corpuscular Hemoglobin 32, Mean Corpuscular Hemoglobin Concent 34, Red Cell Distribution Width 13.6, Platelet Count 121L, Mean Platelet Volume 9.9, Neutrophils (%) (Auto) 72, Lymphocytes (%) (Auto) 17, Monocytes (%) (Auto) 10, Eosinophils (%) (Auto) 1, Basophils (%) (Auto) 0, Neutrophils # (Auto) 5.2, Lymphocytes # (Auto) 1.2, Monocytes # (Auto) 0.7, Eosinophils # (Auto) 0.1, Basophils # (Auto) 0.0, Prothrombin Time 13.7, INR Comment 1.0, Activated Partial Thromboplast Time 21L 08/03/19 11:30: Sodium Level 136, Potassium Level 4.3, Chloride Level 104, Carbon Dioxide Level 18L, Anion Gap 14, Blood Urea Nitrogen 21H, Creatinine 1.76H, Estimat Glomerular Filtration Rate 38, BUN/Creatinine Ratio 12, Glucose Level 135H, Calcium Level 10.8H, Corrected Calcium 10.7H, Magnesium Level 1.7, Total Bilirubin 0.8, Aspartate Amino Transf (AST/SGOT) 21, Alanine Aminotransferase (ALT/SGPT) 21, Alkaline Phosphatase 68, Total Creatine Kinase 44, Creatine Kinase MB 2.2, Troponin I < 0.028, B-Type Natriuretic Peptide 98.8, Total Protein 8.4H, Albumin 4.1, Amylase Level 54, Lipase 24 08/03/19 16:55: Urine Color YELLOW, Urine Clarity CLEAR, Urine pH 5.5, Urine Specific Jemison 1.025H, Urine Protein NEGATIVE, Urine Glucose (UA) NEGATIVE, Urine Ketones NEGATIVE, Urine Nitrite NEGATIVE, Urine Bilirubin NEGATIVE, Urine Urobilinogen 0.2, Urine Leukocyte Esterase NEGATIVE, Urine RBC (Auto) NEGATIVE, Urine RBC NONE, Urine WBC NONE, Urine Squamous Epithelial Cells RARE, Urine Crystals NONE, Urine Bacteria NEGATIVE, Urine Casts NONE, Urine Mucus SMALLH, Urine Culture Indicated NO 08/03/19 20:30: Glucometer 107 08/04/19 05:15: White Blood Count 6.4, Red Blood Count 4.20L, Hemoglobin 13.3, Hematocrit 40, Mean Corpuscular Volume 94, Mean Corpuscular Hemoglobin 32, Mean Corpuscular Hemoglobin Concent 34, Red Cell Distribution Width 13.9, Platelet Count 89L, Mean Platelet Volume 9.7, Neutrophils (%) (Auto) 70, Lymphocytes (%) (Auto) 15, Monocytes (%) (Auto) 13H, Eosinophils (%) (Auto) 1, Basophils (%) (Auto) 0, Charles trophils # (Auto) 4.5, Lymphocytes # (Auto) 1.0, Monocytes # (Auto) 0.9, Eosinophils # (Auto) 0.1, Basophils # (Auto) 0.0, Sodium Level 136, Potassium Level 4.9, Chloride Level 107, Carbon Dioxide Level 18L, Anion Gap 11, Blood Urea Nitrogen 17, Creatinine 1.59H, Estimat Glomerular Filtration Rate 43, BUN/Creatinine Ratio 11, Glucose Level 111H, Calcium Level 10.1, Corrected Calcium 10.4H, Total Bilirubin 0.8, Aspartate Amino Transf (AST/SGOT) 22, Alanine Aminotransferase (ALT/SGPT) 17, Alkaline Phosphatase 61, Total Protein 7.4, Albumin 3.6 08/04/19 05:30: Glucometer 146H Physical Exam Physical Exam Vital Signs Vital Signs - First Documented 08/03/19 10:01 Temp 36.4 Pulse 84 Resp 20 B/P (MAP) 118/83 (95) Pulse Ox 99 O2 Delivery Room Air Capillary Refill : Less Than 3 SecondsLess Than 3 Seconds Height, Weight, BMI Height: '" Weight: lbs. oz. 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 Arce Cholelithiasis- Dr. Riley consulted Fever and chills, started on antibiotics, managed by primary care team Cellulitis of the left leg, receiving antibiotics. Normal pedal pulses. Continue to monitor CAD- history of Taxus 2.5x12mm stent [place] [address] Turner, reports last stress test in 2017, I will evaluate 2-D echocardiogram. Try to obtain copy of his records. Hypertension, maintained on beta blockers, restart and monitor blood pressure, evaluate 2-D echo Hyperlipidemia, intolerant to statin with elevated liver enzymes, monitor lipids. Diabetes mellitus, managed by primary care physician Acute on chronic kidney disease, continue to monitor renal function closely. Thank you for allowing us to participate in the management of Mr. Thomason. This is Gladys Pryor PA-C, as a scribe for Dr. Mueller. Patient was seen and evaluated with Gladys, examination performed, management plan was discussed, agree with the current scribed note, I made few changes to the note using Italic font Clinical Quality Measures DVT/VTE Risk/Contraindication: Risk Factor Score Per Nursin RFS Level Per Nursing on Admit: 4+=Very High GLADYS FUENTES Aug 04, 2019 08:50 INDIRA SAVAGE MD Aug 04, 2019 09:23 POS
[2019-08-04] MEDS ORDERED: ACETAMINOPHEN 325 MG TABLET ONE (09:17)
[2019-08-04] MEDS ORDERED: ASPI-999 PO (09:22)
[2019-08-04] MEDS ORDERED: METO50TA15 PO (09:22)
[2019-08-04] MEDS ORDERED: CHOL20002 PO (09:22)
[2019-08-04] MEDS ORDERED: VITA400C60 PO (09:22)
--- NOTE | 2019-08-04 09:23 | NUR ---
SPOKE WITH THE PATIENT ABOUT HIS MEDICATIONS. HE STATES THE ONLY PRESCRIPTION HE TAKES IS METOPROLOL TARTRATE 25MG BID. ACCORDING TO THE EXT MED HX [facility] LAST FILLED METOPROLOL TARTRATE 50MG BID #180 03-19-19 - HE STATES THIS DOSE WAS DECREASED HOWEVER [facility] HAS NEVER FILLED THE 25MG TABLET. I ENTERED IT 1/2 TAB BID AT THIS TIME. HE TAKES THE FOLLOWING OTC: ASPIRIN 81MG 2 DAILY VITAMIN D DAILY VITAMIN E DAILY
[2019-08-04] MEDS ORDERED: PIPERACILLIN/TAZO 4.5 GM/NS 100 ML IV NR ×2 (09:30)
[2019-08-04] MEDS ORDERED: ACETAMINOPHEN 325 MG TABLET PO PRN (09:30)
[2019-08-04] MEDS: ORPHENADRINE 60 MG/2 ML (NORFLEX) AMP IM SCH ×2 (10:03→21:41)
[2019-08-04] MEDS: meTOprolol TARTRATE 25 MG (LOPRESSOR) TABLET PO SCH ×2 (10:03→21:41)
--- NOTE | 2019-08-04 11:28 | Diagnostic Imaging Report ---
TECHNIQUE: Multiplanar, multisequence MRI of the thoracic spine was performed without contrast. COMPARISON: CT chest on 08/03/2019. REASON FOR EXAM: Fall. T7 fracture. FINDINGS: Acute compression fracture is visualized involving the T7 vertebral body with approximately 50% height loss. No evidence of bony retropulsion is seen at this level. There is T2 hyperintense signal involving the superior endplates of the T2 and T3 vertebral bodies with approximately 10% height loss at T2 and 25% height loss at T3. No retropulsion is seen at these levels. The intrinsic signal within the thoracic spinal cord has a normal appearance. No epidural collections are identified. Degenerative changes are present in the thoracic spine with posterior disc bulges at T5-T6, T6-T7, and T7-T8. There is moderate left lateral recess stenosis at the T7-T8 level. The included soft tissues are unremarkable. IMPRESSION: 1. Acute compression fractures at T2, T3, and T7. There is less than 25% height loss at T2 and T3 with approximately 50% height loss at T7. No evidence of bony retropulsion. No findings to suggest acute spinal canal stenosis. No epidural hematomas are seen. 2. Multilevel degenerative changes in the thoracic spine, greatest at T7-T8. Dictated by: Dictated on workstation # [id number]
[2019-08-04] MEDS: PIPERACILLIN/TAZOBACTAM (BULK) 4.5 GM in NS (IVPB) 100 ML IV SCH ×2 (16:02→23:56)
--- NOTE | 2019-08-04 16:33 | Progress Note ---
Standard Progress Note Progress Notes/Assess & Plan Date Seen by a Provider: Aug 04, 2019 Time Seen by a Provider: 16:00 Progress/Assessment & Plan pain more lower abd and negative murphys sign. patient also does not report GB symptoms before fall. labs normal. no signs of cholecystitis. feel abd pain more related to thoracic spine compression fracture. will await ortho input. may wait for cholecystectomy as OP. Focused Exam Respiratory: Chest Non Tender, Lungs Clear Cardiovascular: Regular Rate, Rhythm LATOYA FLYNN MD Aug 04, 2019 16:33 POS
[2019-08-04] MEDS ORDERED: meTOprolol TARTRATE 50 MG (LOPRESSOR) TAB PO SCH (21:00)
--- NOTE | 2019-08-04 23:30 | CONSULTATION REPORT ---
DATE OF SERVICE: 08/04/2019 ATTENDING PHYSICIAN: Bianca Chiang M.D. HISTORY OF PRESENT ILLNESS: The patient is a 74-year-old male, who was seen in consultation with Dr. Riley. The patient reports that approximately a week ago on 07/29/2019 he was getting onto a ladder when he stepped on the first run and the ladder fell and he fell backwards approximately 3 to 4 feet, landing on his back on the ramp of his porch. He reports that he did bump his head at that time, but did not lose any consciousness. He reports initially that he did not have much pain until approximately 2 days later when he started having severe pain across his mid abdomen as well as across his back. He reports that this pain was usually more severe with movement, especially with breathing, coughing or sneezing or trying to lie down. He denied any nausea or vomiting as well as no diarrhea or constipation. He also denied any fever or chills. He denied any significant pain in the epigastric or right upper quadrant abdominal region as well as no heartburn or reflux. He reports that he has not noticed any issues with any foods in his pain and has not noticed any discomfort before he had the fall. He did present to the emergency room on 08/03/2019 with complaints of abdominal pain. He did undergo a CT of the chest, abdomen and pelvis at that time, which did show compression fracture of T7 with approximately 50% height loss and no retropulsed fracture fragment. There was also what appeared to be incidental finding of cholelithiasis; however, no acute cholecystitis. He then underwent a thoracic spine MRI, which did also show an acute compression fractures of T2-T3 as well as again of T7 with 25% height loss at T2 and T3 and again 50% at T7. There was no acute spinal canal stenosis identified. There was multilevel degenerative changes in the thoracic spine with a greatest at the T7-T8. PAST MEDICAL HISTORY: Hypertension, myocardial infarction in 2005. PAST SURGICAL HISTORY: Kyphoplasty, L2-L5 lumbar laminectomy, L3-L5 cardiac catheterization with stent placed in 2005, umbilical hernia repair, laparoscopic liver biopsy. ALLERGIES: IV CONTRAST, STATINS, MORPHINE. MEDICATIONS: Aspirin 325 mg daily, metoprolol 25 mg b.i.d., ramipril 2.5 mg daily. SOCIAL HISTORY: Negative for smoke. Negative for alcohol. FAMILY HISTORY: Significant for heart disease. VITAL SIGNS: Temperature 36.8 degrees Celsius, pulse 64, respirations 16, blood pressure 113/72, pulse ox is 98% on 1.5 liters nasal cannula. REVIEW OF SYSTEMS: This is a well-nourished male, in no acute distress. He is not experiencing any shortness of breath or difficulty breathing. No chest pain, palpitations or diaphoresis. No nausea or vomiting. He does report mid abdominal pain as well as mid to lower back pain. No diarrhea or constipation. No red blood per rectum. No dark tarry stools. No fever or chills. No recent inadvertent weight loss. All other review of systems negative. PHYSICAL EXAMINATION: CHEST: Clear. Good breath sounds bilateral. HEART: Regular, no murmurs. EXTREMITIES: There is approximately a 1+ lower extremity edema bilaterally as well as some mild redness and erythema of the left lower extremity just proximal to the ankle. There is no pain or tenderness with palpation. HEENT: No scleral icterus. NECK: No cervical lymphadenopathy. ABDOMEN: Soft, nondistended. There is some tenderness on palpation in the mid abdomen bilaterally. There does not appear to be in any pain or tenderness on palpation in the right upper abdominal quadrant or epigastric region. No palpable masses. No organomegaly. SKIN: Warm and dry. There again some redness and erythema of the left lower extremity just proximal to the ankle that does appear to be consistent with a cellulitis. NEUROLOGIC: Awake, alert, oriented x3. ASSESSMENT AND PLAN: A 74-year-old male, who has suffered a recent fall and has a T2-T3 as well as T7 compression fracture and was also found to have cholelithiasis on the CT. At this time, his pain does appear to be more related to his back and the compression fractures then from the cholelithiasis. We will at this time have him continue with medical management for the compression fractures. It was discussed with the patient that once he has healed and the pain is improved from the compression fractures that if he becomes symptomatic, at that time we could proceed with a laparoscopic cholecystectomy on an outpatient basis. He was instructed that for the time being he will need to proceed with a low fat diet as well as pain and nausea medication as needed. We will have him follow up with us on an outpatient basis as needed for his cholelithiasis. Job ID: [id number] DocumentID: [id number] Dictated Date: 08/04/2019 17:54:21 Boilermaking Supervisor Date: 08/04/2019 23:29:04 Dictated By: TALISHA TALAVERA APRN
[2019-08-05] MEDS: HYDROmorphone 2 MG/ML VIAL (DILAUDID) IV PRN (01:15)
[2019-08-05] MEDS: LORazepam INJ 2 MG/ML (ATIVAN) VIAL IVP PRN (02:01)
[2019-08-05] MEDS: D5 1/2 NS 1000 ML IV SOLUTION 1,000 ML IV SCH (02:03)
--- NOTE | 2019-08-05 02:29 | NUR ---
0110- PT STANDING AT BEDSIDE TRYING TO URINATE WITH PCT. PT STARTED SCREAMING, STATING HE WAS IN SEVERE PAIN. PCT PLACED PT BACK TO BED BC PT UNABLE TO URINATE. 0115-PAIN MEDICATION GIVEN TO PATIENT. PAIN LOCATED AT LOWER ABD AND BILATERAL UPPER ABD WELL. 0125-BLADDER SCAN SHOWED >999ML URINE IN BLADDER. VITALS SIGNS: BP-112/68, PULSE-90, O2-98% ON 1.5L. 0135- SPOKE WITH DR. MAS AND INFORMED HER OF ABOVE FINDINGS. TELEPHONE ORDERS RECEIVED TO STRAIGHT CATH PATIENT NOW AND IF PTS BLADDER SCAN IS GREATER THAN 350ML IN THE FUTURE TO PLACE A ESTEVEZ CATHETER AND LET HER KNOW. 0145- STRAIGHT CATH PERFORMED WITH 1300ML URINE RETURNED. PT VERY ANXIOUS AND IN EXTREME PAIN . 0201- ATIVAN GIVEN. PT RESTING MORE COMFORTABLY AT THIS TIME.
[2019-08-05 03:20] VITALS: BP 100/64
[2019-08-05] MEDS: inSUlin ASPART (NovoLOG) 1 UNIT/0.01 ML (CHARGE PER UNIT) SC SCH ×4 (05:04→20:59)
[2019-08-05] MEDS: HYDROcodone/APAP 7.5 MG/325 MG (LORTAB, LORCET PLUS) TABLET PO PRN (06:26)
--- NOTE | 2019-08-05 07:47 | Cardiology Progress Note ---
Subjective Date Seen by Provider: Aug 05, 2019 Time Seen by Provider: 07:44 Subjective/Events-last exam Patient is laying down in bed, having significant abdominal pain, no nausea or vomiting Review of Systems General: No Chills, No Night Sweats, No Fatigue, No Malaise, No Appetite, No Other HEENT: No Head Aches, No Visual Changes, No Eye Pain, No Ear Pain, No Dysphasia, No Sinus Congestion, No Post Nasal Drip, No Sore Throat, No Other Pulmonary: No Dyspnea, No Cough, No Pleuritic Chest Pain, No Other Cardiovascular: No: Chest Pain, Palpitations, Orthopnea, Paroxysmal Noc. Dyspnea, Edema, Lt Headedness, Other Objective-Cardiology Exam Last Set of Vital Signs Vital Signs 08/05/19 03:20 Temp 36.9 Pulse 77 Resp 20 B/P (MAP) 100/64 (76) Pulse Ox 96 O2 Delivery Nasal Cannula O2 Flow Rate 1.50 Capillary Refill : Less Than 3 SecondsLess Than 3 Seconds I&O Intake and Output 08/05/19 00:00 Intake Total 3340 ml Output Total 2500 ml Balance 840 ml Intake Oral 800 ml IV Total 2540 ml Output Urine Total 2500 ml General: Alert, Oriented X3, Cooperative HEENT: Atraumatic, PERRLA Neck: Supple, No JVD, No Thyromegaly Lungs: Clear to Auscultation, Normal Air Movement Heart: Regular Rate, Normal S1, Normal S2, No Murmurs Abdomen: Normal Bowel Sounds, No Hepatosplenomegaly, No Masses, Other (Right upper quadrant tenderness) Extremities: No Clubbing, No Cyanosis, No Edema, Normal Pulses, No Tenderness/Swelling, Other Skin: No Rashes, No Breakdown, No Significant Lesion Neuro: Normal Gait, Normal Speech, Strength at 5/5 X4 Ext, Normal Tone, Sensation Intact Psych/Mental Status: Mental Status NL, Mood NL Results Lab Laboratory Tests Test 08/04/19 12:03 08/04/19 15:25 08/04/19 20:48 08/05/19 04:48 Range/Units Glucometer 205 H 131 H 144 H 143 H 70-110 MG/DL A/P-Cardiology Admission Diagnosis Acute T7 fracture Cholelithiasis CAD HTN Assessment/Plan Acute T7 fracture secondary to fall from ladder last week, history of kyphoplasty done in [place] [address] Arce Cholelithiasis, having significant abdominal pain, right upper quadrant pain, managed by general surgery Fever and chills, started on antibiotics, better today, managed by primary care team Cellulitis of the left leg, receiving antibiotics. Normal pedal pulses. Continue to monitor CAD- history of Taxus 2.5x12mm stent [place] [address] Turner, reports last stress test in 2018, echocardiogram done on August 04, 2019 showing normal LV size and function with ejection fraction 55-65 percent, mildly dilated left atrium, aortic valve sclerosis no aortic stenosis, normal pulmonary artery pressure. Hypertension, continue current medication and monitor blood pressure Hyperlipidemia, intolerant to statin with elevated liver enzymes, monitor lipids. Diabetes mellitus, managed by primary care physician Acute on chronic kidney disease, continue to monitor renal function closely. Clinical Quality Measures DVT/VTE Risk/Contraindication: Risk Factor Score Per Nursin RFS Level Per Nursing on Admit: 4+=Very High INDIRA YANES MD Aug 05, 2019 07:47 POS
[2019-08-05 07:48] VITALS: BP 125/71
[2019-08-05] MEDS: PIPERACILLIN/TAZOBACTAM (BULK) 4.5 GM in NS (IVPB) 100 ML IV SCH ×2 (08:06→16:12)
[2019-08-05] MEDS: ORPHENADRINE 60 MG/2 ML (NORFLEX) AMP IM SCH (08:08)
[2019-08-05] MEDS: meTOprolol TARTRATE 25 MG (LOPRESSOR) TABLET PO SCH ×2 (08:09→21:04)
[2019-08-05] MEDS ORDERED: HYDROcodone/APAP 10 MG/325 MG (LORTAB) TAB PO SCH (09:00)
--- NOTE | 2019-08-05 09:04 | Progress Note ---
Subjective Date Seen by a Provider: Aug 05, 2019 Time Seen by a Provider: 09:00 Subjective/Events-last exam PT REPORTS THAT HE IS HAVING SIGNIFICANT ABDOMINAL DISCOMFORT. HE REPORTS THAT HE IS HAVING PAIN AT 10/10 IN HIS ABDOMEN. HE REPORTS THAT THE PAIN MEDICATION IS ONLY LASTING A FEW HOURS. HE DENIES CHEST PAIN, SHORTNESS OF BREATH. Review of Systems General: Fatigue HEENT: No Head Aches Pulmonary: No Dyspnea, No Cough Cardiovascular: No: Chest Pain, Palpitations Gastrointestinal: Abdominal Pain; No: Nausea Genitourinary: Retention Musculoskeletal: back pain Neurological: Weakness; No: Confusion Objective Exam Last Set of Vital Signs Vital Signs Date Time Temp Pulse Resp B/P (MAP) Pulse Ox O2 Delivery O2 Flow Rate FiO2 08/05/19 08:29 93 Nasal Cannula 2.00 08/05/19 07:48 37.2 85 18 125/71 (89) Capillary Refill : Less Than 3 SecondsLess Than 3 Seconds I&O Intake and Output 08/05/19 00:00 Intake Total 3340 ml Output Total 2500 ml Balance 840 ml Intake Oral 800 ml IV Total 2540 ml Output Urine Total 2500 ml General: Alert, Oriented X3, Cooperative HEENT: Atraumatic, PERRLA Neck: Supple Lungs: Clear to Auscultation, Normal Air Movement Heart: Regular Rate Abdomen: Normal Bowel Sounds, Soft, Other (TTP RUQ, EPIGASTRIC, LUQ) Neuro: Cranial Nerves 3-12 NL Psych/Mental Status: Mental Status NL Results Lab Laboratory Tests 08/04/19 12:03: Glucometer 205H 08/04/19 15:25: Glucometer 131H 08/04/19 20:48: Glucometer 144H 08/05/19 04:48: Glucometer 143H Assessment/Plan Assessment/Plan Assess & Plan/Chief Complaint ACUTE ABDOMINAL PAIN DUE TO CHOLELITHIASIS ACUTE T7 COMPRESSION FRACTURE HYPERTENSION UNCONTROLLED PAIN CELLULITIS URINARY RETENTION ACUTE ABDOMINAL PAIN DUE TO CHOLELITHIASIS - DEFER TO DR. FLYNN ACUTE T7 COMPRESSION FRACTURE - MRI SHOWED ACUTE T2, T3, AND T7 COMPRESSION FRACTURES - CONSULT WAS PLACED TO DR. CABRAL ON ADMISSION - DISCUSSED THE CASE WITH DR. CABRAL THIS MORNING, THE PT HAS ACUTE T2, 3 @25% AND T7 @50% COMPRESSION FRACTURES - HE HAS INDICATED THAT HE WILL NOT BE ABLE TO SEE PT DUE TO HIS SCHEDULE AND THAT THE PT COULD BE DISCHARGED TO HOME TODAY WITH OUTPT FOLLOW UP TOMORROW, OR WAIT AND DISCHARGE TOMORROW WITH OUTPT APPT TOMORROW AND THEN PT TO BE SCHEDULED FOR SURGERY OUTPT. I HAVE REPORTED TO HIM THAT THE PT WAS IN SO MUCH ACUTE PAIN THAT I COULD NOT SAFELY DISCHARGE HIM TO HOME AND I WILL BE STARTING PT ON A APPLICATIONS DEVELOPMENT ANALYST FOR BETTER PAIN CONTROL. I HAVE REACHED OUT AGAIN TO DR. CABRAL WELL DR. TSAI TO SEE IF ONE OF THEM COULD HELP OUT WITH MY PT AN INPATIENT, IF WE CANNOT, I WILL HAVE TO SEE IF I CAN GET HIM OVER TO [place] FOR INTERVENTION. - CONTINUE WITH PAIN CONTROL WITH IV PAIN MEDICATIONS HYPERTENSION METOPROLOL RESTARTED CELLULITIS LEFT LOWER LEG - CHANGE FROM FLAGYL/CIPRO TO ZOSYN, MONITOR SYMPTOMS, RESPONSE TO TREATMENT. URINARY RETENTION - ESTEVEZ PLACED TODAY AFTER STRAIGHT CATH LAST NIGHT WITH OVER 1300ML OF URINE AND TODAY HE HAS 870ML OF URINE IN BLADDER. Clinical Quality Measures DVT/VTE Risk/Contraindication: Risk Factor Score Per Nursin RFS Level Per Nursing on Admit: 4+=Very High LOGAN MSA MD Aug 05, 2019 09:04 POS
[2019-08-05] MEDS ORDERED: NS IV 1000 ML 1,000 ML IV SCH (09:32)
[2019-08-05] MEDS ORDERED: fentaNYL INJECTION 1,000 MCG in NS (IVPB) 80 ML IV SCH (09:45)
[2019-08-05] MEDS ORDERED: diphenhydrAMINE 50 MG/ML INJ (BENADRYL) IV PRN (09:45)
[2019-08-05] MEDS ORDERED: NALOXONE 0.4 MG/ML 1 ML (NARCAN) VIAL IV PRN (09:45)
[2019-08-05] MEDS ORDERED: HYDROcodone/APAP 10 MG/325 MG (LORTAB) TAB PO PRN (09:45)
[2019-08-05] MEDS ORDERED: ONDANSETRON 4 MG/2 ML (SDV) Z0FRAN IV PRN (09:45)
[2019-08-05] MEDS ORDERED: METOCLOPRAMIDE INJ 10 MG/2 ML (REGLAN) IV PRN (09:45)
--- NOTE | 2019-08-05 11:38 | Progress Note ---
Subjective Date Seen by a Provider: Aug 05, 2019 Time Seen by a Provider: 10:00 Subjective/Events-last exam continue to have pain upon laying totally supine. no RUQ pain/negative murphys sign. no nausea/vomiting. ortho spine consulted however recommended outpatient f/u. patient in too much pain and unstable. will either need ortho spine managment here vs. transfer. Objective Exam Vital Signs Date Time Temp Pulse Resp B/P (MAP) Pulse Ox O2 Delivery O2 Flow Rate FiO2 08/05/19 08:29 93 Nasal Cannula 2.00 08/05/19 07:48 37.2 85 18 125/71 (89) 96 Nasal Cannula 1.50 08/05/19 07:00 86 08/05/19 03:20 36.9 77 20 100/64 (76) 96 Nasal Cannula 1.50 08/05/19 01:00 96 08/04/19 23:46 37.3 72 20 116/72 (87) 99 Nasal Cannula 1.50 08/04/19 20:55 Nasal Cannula 2.00 08/04/19 19:06 37.1 71 20 99/54 (69) 99 Nasal Cannula 1.50 08/04/19 19:00 70 08/04/19 16:29 Nasal Cannula 1.00 08/04/19 15:17 36.8 64 16 113/72 (86) 98 Nasal Cannula 1.50 08/04/19 13:00 64 08/04/19 12:00 37.2 64 20 123/72 (89) 100 Nasal Cannula 2.00 I & O 08/05/19 07:00 Intake Total 4210 ml Output Total 2500 ml Balance 1710 ml Capillary Refill : Less Than 3 SecondsLess Than 3 Seconds General Appearance: No Apparent Distress HEENT: PERRL/EOMI Neck: Full Range of Motion Respiratory: Chest Non Tender Cardiovascular: Regular Rate, Rhythm Gastrointestinal: soft, abnormal bowel sounds, tenderness Extremity: Normal Capillary Refill Neurologic/Psychiatric: Alert, Oriented x3 Skin: Normal Color Lymphatic: No Adenopathy Results Lab Laboratory Tests 08/04/19 12:03: Glucometer 205H 08/04/19 15:25: Glucometer 131H 08/04/19 20:48: Glucometer 144H 08/05/19 04:48: Glucometer 143H Assessment/Plan Assessment/Plan Assess & Plan/Chief Complaint T2,T3 and T7 compression fracture with significant pain. gallstones/gallbladder asymptomatic however may be addressed later. will continue pain control for now however will need evaluation by ortho spine or neurosurg. Clinical Quality Measures DVT/VTE Risk/Contraindication: Risk Factor Score Per Nursin RFS Level Per Nursing on Admit: 4+=Very High LATOYA FLYNN MD Aug 05, 2019 11:37 POS
[2019-08-05 12:00] VITALS: BP 116/71
[2019-08-05 15:21] VITALS: BP 132/78
[2019-08-05 19:45] VITALS: BP 129/74
--- NOTE | 2019-08-05 20:56 | NUR ---
PT IS DROWSY BUT ALERT TO NAME. DR. MAS CALLED TO VERIFY SHE WANTS NORFLEX GIVEN Q12HR WITH PT BEING ON CADD PUMP. ORDER TO CHANGE TO PRN Q12HRS. ALSO NOTIFIED THAT PT HAS NO CONT. DOSE ON CADD AND RATES PAIN 5/10.
[2019-08-05] MEDS ORDERED: ORPHENADRINE 60 MG/2 ML (NORFLEX) AMP IM PRN (21:00)
[2019-08-05 23:59] VITALS: BP 147/81
[2019-08-06] VITALS (11 sets, daily range): BP systolic 129–159; BP diastolic 69–89
[2019-08-06] MEDS: PIPERACILLIN/TAZOBACTAM (BULK) 4.5 GM in NS (IVPB) 100 ML IV SCH ×4 (00:12→23:00)
[2019-08-06] MEDS: inSUlin ASPART (NovoLOG) 1 UNIT/0.01 ML (CHARGE PER UNIT) SC SCH ×4 (05:02→20:56)
[2019-08-06 05:54] LABS: HEMOGLOBIN 12.2 G/DL (13.3-17.7); MEAN PLATELET VOLUME 9.5 FL (7.4-10.4); RED CELL DISTRIBUTION WIDTH 13.6 % (10.0-14.5)
[2019-08-06 06:13] LABS: ALBUMIN 3.2 GM/DL (3.2-4.5); CALCIUM 9.8 MG/DL (8.5-10.1); CREATININE SERUM 1.69 MG/DL (0.60-1.30); POTASSIUM 4.5 MMOL/L (3.6-5.0); TOTAL PROTEIN 6.7 GM/DL (6.4-8.2)
[2019-08-06] MEDS: meTOprolol TARTRATE 25 MG (LOPRESSOR) TABLET PO SCH ×2 (08:06→21:05)
[2019-08-06] MEDS: SENNA W/DOCUSATE (SENOKOT S) TABLET PO SCH (08:06)
[2019-08-06] MEDS ORDERED: ENOXAPARIN 40 MG/0.4 ML (LOVENOX) SYR SC SCH (08:30)
[2019-08-06] MEDS ORDERED: SALINE NASAL SPRAY (OCEAN) 45 ML BTL PRN (09:15)
--- NOTE | 2019-08-06 09:19 | Progress Note ---
Subjective Date Seen by a Provider: Aug 06, 2019 Time Seen by a Provider: 08:30 Subjective/Events-last exam PT REPORTS THAT HIS ABDOMINAL PAIN SEEMS TO HAVE CENTRALIZED IN HIS RIGHT UPPER ABDOMEN AND IN THE "MIDDLE" OF HIS STOMACH. HE STATES THAT HE DOES NOT HAVE NAUSEA WHEN HE IS EATING, BUT HIS PAIN HAS I NTENSIFIED IN HIS ABDOMEN. HE DENIES CHEST PAIN, SHORTNESS OF BREATH. HE IS COMPLAINING OF NASAL CONGESTION Review of Systems General: Fatigue HEENT: No Head Aches Pulmonary: No Dyspnea, No Cough Cardiovascular: No: Chest Pain, Palpitations Gastrointestinal: Abdominal Pain; No: Nausea, Vomiting Genitourinary: Retention Neurological: Weakness; No: Confusion Objective Exam Last Set of Vital Signs Vital Signs Date Time Temp Pulse Resp B/P (MAP) Pulse Ox O2 Delivery O2 Flow Rate FiO2 08/06/19 08:06 37.2 75 97 21 08/06/19 08:00 20 156/89 (111) Nasal Cannula 1.50 Capillary Refill : Less Than 3 SecondsLess Than 3 Seconds I&O Intake and Output 08/05/19 23:59 Intake Total 2470 ml Output Total 4775 ml Balance -2305 ml Intake Oral 1350 ml IV Total 1120 ml Output Urine Total 4775 ml # Bowel Movements 1 General: Alert, Oriented X3, Cooperative, Mild Distress HEENT: Atraumatic, PERRLA Neck: Supple Lungs: Clear to Auscultation, Normal Air Movement Heart: Regular Rate Abdomen: Normal Bowel Sounds, Soft, Other (TTP EPIGASTRIC, RUQ, LUQ) Skin: Other (ERYTHEMA LEFT LOWER LEG FROM SCRATCHES/ABRASION DOWN TO ANKLE) Neuro: Cranial Nerves 3-12 NL Psych/Mental Status: Mental Status NL, Mood NL Results Lab Laboratory Tests 08/05/19 11:21: Glucometer 122H 08/05/19 15:24: Glucometer 97 08/05/19 20:48: Glucometer 111H 08/06/19 04:47: Glucometer 94 08/06/19 05:15: White Blood Count 5.0, Red Blood Count 3.82L, Hemoglobin 12.2L, Hematocrit 36L, Mean Corpuscular Volume 95, Mean Corpuscular Hemoglobin 32, Mean Corpuscular Hemoglobin Concent 34, Red Cell Distribution Width 13.6, Platelet Count 108L, Mean Platelet Volume 9.5, Sodium Level 140, Potassium Level 4.5, Chloride Level 107, Carbon Dioxide Level 22, Anion Gap 11, Blood Urea Nitrogen 13, Creatinine 1.69H, Estimat Glomerular Filtration Rate 40, BUN/Creatinine Ratio 8, Glucose Level 88, Calcium Level 9.8, Corrected Calcium 10.4H, Total Bilirubin 1.0, Aspartate Amino Transf (AST/SGOT) 33, Alanine Aminotransferase (ALT/SGPT) 19, Alkaline Phosphatase 63, Total Protein 6.7, Albumin 3.2, Triglycerides Level 72, Cholesterol Level 102, LDL Cholesterol Direct 65, VLDL Cholesterol 14, HDL Cholesterol 30L Assessment/Plan Assessment/Plan Assess & Plan/Chief Complaint ACUTE ABDOMINAL PAIN DUE TO CHOLELITHIASIS ACUTE T7 COMPRESSION FRACTURE HYPERTENSION UNCONTROLLED PAIN CELLULITIS URINARY RETENTION CHRONIC RENAL INSUFFICIENCY ACUTE ABDOMINAL PAIN DUE TO CHOLELITHIASIS - DEFER TO DR. FLYNN ACUTE T2, T3 AND T7 COMPRESSION FRACTURE - MRI SHOWED ACUTE T2, T3, AND T7 COMPRESSION FRACTURES - CONSULT WAS PLACED TO DR. CABRAL ON ADMISSION - DISCUSSED THE CASE WITH DR. CABRAL THIS ON 08/05/19, AND DR. TSAI - THE PT HAS ACUTE T2, 3 @25% AND T7 @50% COMPRESSION FRACTURES - - DR. TSAI HAS INDICATED THAT HE WILL SEE THE PT ON SUNDAY AND PERFORM A VERTEBROPLASTY/KYPHOPLASTY ON THE T7 AND ALLOW T2, T3 TO HEAL BY SECONDARY INTENTION. - PT WILL NEED TO HAVE DEXA OUTPATIENT AND CONSIDER STARTING ON PROLIA OUTPATIENT DUE TO HIS RECURRENT COMPRESSION FX. 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 HYPERTENSION METOPROLOL RESTARTED CELLULITIS LEFT LOWER LEG - CHANGED FROM FLAGYL/CIPRO TO ZOSYN ON 08/04/19, MONITOR SYMPTOMS - WITH IMPROVED ERYTHEMA OF LOWER LEG URINARY RETENTION - ESTEVEZ PLACED TODAY AFTER STRAIGHT CATH LAST NIGHT WITH OVER 1300ML OF URINE AND TODAY HE HAS 870ML OF URINE IN BLADDER. CHRONIC RENAL INSUFFICIENCY - SUPPORTIVE CARE ONLY WITH MEDICATION MANAGEMENT/ADJUSTMENT BASED ON GFR/CREATININE. DVT PROPHYLAXIS WITH SCD'S - LOVENOX NOT STARTED IN ANTICIPATION OF SURGERY. Clinical Quality Measures DVT/VTE Risk/Contraindication: Risk Factor Score Per Nursin RFS Level Per Nursing on Admit: 4+=Very High LOGAN MAS MD Aug 06, 2019 09:19 POS
--- NOTE | 2019-08-06 10:03 | Cardiology Progress Note ---
Subjective Date Seen by Provider: Aug 06, 2019 Time Seen by Provider: 10:02 Subjective/Events-last exam Patient is in bed, complaining of epigastric and RUQ pain. Denies any chest pain or dyspnea. Review of Systems General: No Chills, No Night Sweats, No Fatigue, No Malaise, No Appetite, No Other HEENT: No Head Aches, No Visual Changes, No Eye Pain, No Ear Pain, No D ysphasia, No Sinus Congestion, No Post Nasal Drip, No Sore Throat, No Other Pulmonary: No Dyspnea, No Cough, No Pleuritic Chest Pain, No Other Cardiovascular: No: Chest Pain, Palpitations, Orthopnea, Paroxysmal Noc. Dyspnea, Edema, Lt Headedness, Other Objective-Cardiology Exam Last Set of Vital Signs Vital Signs 08/06/19 08/06/19 08/06/19 08:06 12:00 12:55 Temp 36.8 Pulse 77 Resp 16 B/P (MAP) 159/76 (103) Pulse Ox 91 O2 Delivery Nasal Cannula O2 Flow Rate 1.50 FiO2 21 Capillary Refill : Less Than 3 SecondsLess Than 3 Seconds I&O Intake and Output 08/06/19 00:00 Intake Total 2470 ml Output Total 4775 ml Balance -2305 ml Intake Oral 1350 ml IV Total 1120 ml Output Urine Total 4775 ml # Bowel Movements 1 General: Alert, Oriented X3, Cooperative, Mild Distress HEENT: Atraumatic, PERRLA Neck: Supple Lungs: Clear to Auscultation, Normal Air Movement Heart: Regular Rate, Normal S1, Normal S2 Abdomen: Normal Bowel Sounds, Soft, Other (TTP EPIGASTRIC, RUQ, LUQ) Extremities: No Clubbing, No Cyanosis, No Edema, Normal Pulses, No Tenderness/Swelling, Other Skin: Other (ERYTHEMA LEFT LOWER LEG FROM SCRATCHES/ABRASION DOWN TO ANKLE) Neuro: Cranial Nerves 3-12 NL Psych/Mental Status: Mental Status NL, Mood NL Results Lab Laboratory Tests 08/06/19 05:15 A/P-Cardiology Admission Diagnosis Acute T7 fracture Cholelithiasis CAD HTN Assessment/Plan Acute T7 fracture secondary to fall from ladder last week, history of kyphoplasty done in September [address] Arce Cholelithiasis, having significant abdominal pain, right upper quadrant pain, managed by general surgery Cellulitis of the left leg, receiving antibiotics. Normal pedal pulses. Continue to monitor CAD- history of Taxus 2.5x12mm stent [place] [address] Turner, reports last stress test in 2018, echocardiogram done on August 04, 2019 showing normal LV size and function with ejection fraction 55-65 percent, mildly dilated left atrium, aortic valve sclerosis no aortic stenosis, normal pulmonary artery pressure. Hypertension, continue current medication and monitor blood pressure Hyperlipidemia, intolerant to statin with elevated liver enzymes, monitor lipids. Diabetes mellitus, managed by primary care physician Acute on chronic kidney disease, continue to monitor renal function closely. Patient was seen and evaluated with Gladys, examination performed, management plan was discussed, agree with the current scribed note, I made few changes to the note using Italic font Patient is still having abdominal pain, epigastric pain, discomfort, does not report back pain On examination lungs were clear to auscultation, heart is regular I visited with the patient, discussed with him his current cardiac condition that appeared to be stable. Medical therapy is recommended, close monitoring is recommended. Regarding any surgical procedure he is considered at intermediate risk for perioperative cardiac vascular complication, decision regarding the surgery, risk versus benefit is deferred to the surgeon. Clinical Quality Measures DVT/VTE Risk/Contraindication: Risk Factor Score Per Nursin RFS Level Per Nursing on Admit: 4+=Very High Supervisory-Addendum Brief Supervisory Addendum Participated in pt care: history, MDM, physical Personally performed: exam, history, MDM Care discussed with: GLADYS ARCE Aug 06, 2019 10:03 INDIRA SAVAGE MD Aug 06, 2019 15:36 POS
--- NOTE | 2019-08-06 10:48 | Physician Query Clarification ---
PQ-Further Specificity Admission/Discharge Admission Date: Aug 03, 2019 at 18:25 Discharge Date: The medical record reflects the following clinical scenario: History/Risk Factors: T2-3 and T7 compression fractures. Osteoporosis Fall from ladder. Clinical Findings:08/04 MRI thoracic spine w/o contrast-Impression: Acute compression fractures at T2,T3 and T7. There is less than 25%height loss at T2 and T3 with approximately 50% height loss at T7. No evidence of bony retropuls ion. No finddings to suggest acute spinal canal stenosis. No epidural hematomas are seen. Multilevel degenerative changes in the thoracic spine, greatest at T7- T8. Treatment: Fentanyl Citrate 50 mcg IVP, IV Dilaudid. Question: Can you further specify type of compression fractures at T2, T3 and T7 per the clinical indicators above? Please document a response in the Progress Notes or Discharge Summary. 1. T2, T3 and T7 pathologic compression fractures due to osteoporosis. 2. T2,T3 and T7 compression fractures due to fall from ladder. 3. Other, with explanation of the clinical findings. 4. Clinically undetermined, no explanation for the clinical findings. PHYSICIAN RESPONSE Can you specify per above: 2 Please remember a lack of response to the above will prompt a phone page by CDI/Coding staff. In responding to this query, please exercise your independent professional judgment. The purpose of this communication is to more accurately reflect the complexity of your patients condition. The fact that a question is asked does not imply that any particular answer is desired or expected. Thank you for your timely response to this clarification. Requestors name: Mandy Deleon [facility] Phone # ext [phone] or [phone] THIS PHYSICIAN QUERY FORM IS A PERMANENT PART OF THE MEDICAL RECORD MANDY DELEON Aug 06, 2019 10:47 LOGAN GARSIA MD Aug 08, 2019 10:21 POS
[2019-08-06] MEDS ORDERED: fentaNYL INJECTION 100 MCG/2 ML AMP ONE ×2 (15:21→16:49)
[2019-08-06] MEDS ORDERED: IOPAMIDOL 61% 30 ML (ISOVUE 300) VIAL IV ONE (16:29)
[2019-08-06] MEDS ORDERED: BUP/EPI 0.5% 1:200,000 (MARCAINE) 10ML VIAL IJ ONE (16:30)
--- NOTE | 2019-08-06 16:30 | Consultation ---
History of Present Illness History of Present Illness Patient Consulted On(paris/time) 08/06/19 16:27 Date Seen by Provider: Aug 06, 2019 Time Seen by Provider: 16:27 Reason for Visit: FALL WITH BACK AND ABDOMINAL PAIN History of Present Illness 74 yo WM c/o severe back and abdominal pain after falling from a ladder a few days ago. Presented to ER for workup and acute compression fractures were found. He has a history of prior fractures and kyphoplasties and has DEXA at -3. He wishes to have VBA procedure today due to intractable pain. Allergies and Home Medications Allergies Coded Allergies: Iodinated Contrast Media (Verified Allergy, Unknown, 03/20/06) Naizuqq-Mrx-Ywr Reductase Inhibitor (Verified Allergy, Unknown, 03/15/11) morphine (Verified Allergy, Unknown, 03/20/06) Home Medications Aspirin 81 Mg Tab.chew, 162 MG PO DAILY, (Reported) Cholecalciferol (Vitamin D3) 2,000 Unit Capsule, 2,000 UNIT PO DAILY, (Reported) Metoprolol Tartrate 50 Mg Tablet, 25 MG PO BID, (Reported) Vitamin E Acetate 400 Unit Capsule, 400 UNIT PO DAILY, (Reported) Patient Home Medication List Home Medication List Reviewed: Yes Past Ilxbflj-Qnqovg-Ucwrei Hx Past Med/Social Hx: Reviewed Nursing Past Med/Soc Hx, Reviewed and Corrections made Patient Social History Alcohol Use: Denies Use Recreational Drug Use: No Smoking Status: Never a Smoker 2nd Hand Smoke Exposure: No Recent Foreign Travel: No Contact w/Someone Who Travel: No Recent Infectious Disease Expo: No Recent Hopitalizations: No Physical Abuse: No Sexual Abuse: No Mistreated: No Fear: No Immunizations Up To Date Date of Pneumonia Vaccine: Jul 21, 2019 Date of Influenza Vaccine: Jul 21, 2019 Seasonal Allergies Seasonal Allergies: No Past Medical History Surgeries: Yes (UMBILICAL HERNIA REPAIR; LIVER BIOPSY; CHOLECYSTECTOMY; CARDIAC CATH WITH ANGIOPLASTY AND STENT X 1; KYPOHOPLASTY L2, L5; LUMBAR LAMINECTOMY L3- L5) Abdominal, Cardiac, Coronary Stent, Gallbladder, Orthopedic Respiratory: No Cardiac: Yes (CARDIAC CATH WITH ANGIOPLASTY AND STENT X 1 ) Coronary Artery Disease, Heart Attack, High Cholesterol, Hypertension Neurological: No Reproductive Disorders: No Genitourinary: Yes (CHRONIC RENAL INSUFFICIENCY) Renal Failure Gastrointestinal: Yes (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 ) Diabetes, Non-Insulin dep HEENT: No Cancer: No Psychosocial: No Integumentary: No Blood Disorders: No Family Medical History Reviewed Nursing Family Hx Patient reports no known family medical history. No Pertinent Family Hx Review of Systems-General Constitutional: no symptoms reported Physical Exam-General Problems Physical Exam Vital Signs Vital Signs - First Documented 08/03/19 08/06/19 10:01 08:06 Temp 36.4 Pulse 84 Resp 20 B/P (MAP) 118/83 (95) Pulse Ox 99 O2 Delivery Room Air FiO2 21 Capillary Refill : Less Than 3 SecondsLess Than 3 Seconds General Appearance: no apparent distress, moderate distress Extremities: other (5/5 motor elieser LE, mm spasm thoracic spine, painful percussion) Assessment/Plan Assessment/Plan Admission Diagnosis/Plan ASSESSMENT: acute T7 compression fracture PLAN: T7 kyphoplasty Admission Status: Observation Clinical Quality Measures DVT/VTE Risk/Contraindication: Risk Factor Score Per Nursin RFS Level Per Nursing on Admit: 4+=Very High HENRY CABRAL DO Aug 06, 2019 16:30 POS
--- NOTE | 2019-08-06 16:36 | Progress Note-Pre Operative ---
Pre-Operative Progress Note H&P Reviewed The H&P was reviewed, patient examined and no changes noted. Date Seen by Provider: Aug 06, 2019 Time Seen by Provider: 16:36 Date H&P Reviewed: Aug 06, 2019 Time H&P Reviewed: 16:36 Pre-Operative Diagnosis: acute T7 compression fracture HENRY CABRAL DO Aug 06, 2019 16:36 POS
--- NOTE | 2019-08-06 16:43 | Progress Note ---
Subjective Date Seen by a Provider: Aug 06, 2019 Time Seen by a Provider: 15:00 Subjective/Events-last exam doing ok. still has back pain. no neuro deficit. scheduled for kyphoplasty today. Objective Exam Vital Signs Date Time Temp Pulse Resp B/P (MAP) Pulse Ox O2 Delivery O2 Flow Rate FiO2 08/06/19 16:00 37.0 76 18 149/82 (104) 100 Room Air 08/06/19 12:55 77 08/06/19 12:00 36.8 72 16 159/76 (103) 91 Nasal Cannula 1.50 08/06/19 08:06 37.2 75 97 21 08/06/19 08:00 37.2 90 20 156/89 (111) 97 Nasal Cannula 1.50 08/06/19 08:00 Room Air 0.00 08/06/19 07:58 97 Room Air 08/06/19 06:51 69 08/06/19 06:03 16 08/06/19 03:39 97 Room Air 08/06/19 03:30 37.2 69 20 155/82 (106) 97 Nasal Cannula 1.50 08/06/19 01:00 80 08/05/19 23:59 37.4 77 16 147/81 (103) 95 Nasal Cannula 1.50 08/05/19 22:05 95 Nasal Cannula 1.00 08/05/19 21:00 16 08/05/19 20:00 Nasal Cannula 1.50 08/05/19 19:55 97 Nasal Cannula 2.00 08/05/19 19:45 37.6 85 20 129/74 (92) 98 Nasal Cannula 1.50 08/05/19 19:00 80 I & O 08/06/19 07:00 Intake Total 1350 ml Output Total 4425 ml Balance -3075 ml Capillary Refill : Less Than 3 SecondsLess Than 3 Seconds General Appearance: No Apparent Distress HEENT: PERRL/EOMI Neck: Full Range of Motion Respiratory: Chest Non Tender, Lungs Clear, Normal Breath Sounds Cardiovascular: Regular Rate, Rhythm Gastrointestinal: normal bowel sounds, soft Extremity: Normal Capillary Refill Neurologic/Psychiatric: Alert, Oriented x3 Skin: Normal Color Lymphatic: No Adenopathy Results Lab Laboratory Tests 08/05/19 20:48: Glucometer 111H 08/06/19 04:47: Glucometer 94 08/06/19 05:15: White Blood Count 5.0, Red Blood Count 3.82L, Hemoglobin 12.2L, Hematocrit 36L, Mean Corpuscular Volume 95, Mean Corpuscular Hemoglobin 32, Mean Corpuscular Hemoglobin Concent 34, Red Cell Distribution Width 13.6, Platelet Count 108L, Mean Platelet Volume 9.5, Sodium Level 140, Potassium Level 4.5, Chloride Level 107, Carbon Dioxide Level 22, Anion Gap 11, Blood Urea Nitrogen 13, Creatinine 1.69H, Estimat Glomerular Filtration Rate 40, BUN/Creatinine Ratio 8, Glucose Level 88, Calcium Level 9.8, Corrected Calcium 10.4H, Total Bilirubin 1.0, Aspartate Amino Transf (AST/SGOT) 33, Alanine Aminotransferase (ALT/SGPT) 19, Alkaline Phosphatase 63, Total Protein 6.7, Albumin 3.2, Triglycerides Level 72, Cholesterol Level 102, LDL Cholesterol Direct 65, VLDL Cholesterol 14, HDL Cholesterol 30L 08/06/19 11:01: Glucometer 149H 08/06/19 16:23: Glucometer 106 Assessment/Plan Assessment/Plan Assess & Plan/Chief Complaint T2,T3 and T7 compression fracture with significant pain. gallstones/gallbladder asymptomatic however may be addressed later. scheduled for one level kyphoplasty today. Clinical Quality Measures DVT/VTE Risk/Contraindication: Risk Factor Score Per Nursin RFS Level Per Nursing on Admit: 4+=Very High LATOYA FLYNN MD Aug 06, 2019 16:43 POS
[2019-08-06] MEDS ORDERED: ROCURONIUM 10 MG/ML 5 ML SYRINGE IV ONE (16:49)
[2019-08-06] MEDS ORDERED: ONDANSETRON 4 MG/2 ML (SDV) Z0FRAN ONE (16:49)
[2019-08-06] MEDS ORDERED: proPOfol 200 MG/20 ML (DIPRIVAN) VIAL IV ONE (16:49)
[2019-08-06] MEDS ORDERED: LIDOCAINE PF 2% 5 ML (XYLOCAINE) VIAL ONE (16:49)
[2019-08-06] MEDS ORDERED: SEVOFLURANE (ULTANE) 15 ML INHAL SOLN ONE ×3 (16:49→18:16)
--- NOTE | 2019-08-06 16:52 | NUR ---
Pt to surgery via bed
[2019-08-06] MEDS ORDERED: ceFAZolin INJECTION 2,000 MG ONE (17:15)
[2019-08-06] MEDS ORDERED: NEOSTIGMINE 3 MG/3 ML VIAL ONE (17:42)
[2019-08-06] MEDS ORDERED: GLYCOPYRROLATE 0.2 MG/ML (ROBINUL) 2 ML VIAL ONE (17:42)
[2019-08-06] MEDS ORDERED: HYDR-3820 PO (17:48)
[2019-08-06] MEDS ORDERED: HYDROmorphone 2 MG/ML VIAL (DILAUDID) IV ONE (18:15)
[2019-08-06] MEDS ORDERED: ONDANSETRON 4 MG/2 ML (SDV) Z0FRAN IVP PRN (18:15)
--- NOTE | 2019-08-06 18:20 | Diagnostic Imaging Report ---
INDICATION: Back pain. IMPRESSION: 41.6 seconds of fluoroscopy and two intraoperative digital images were used in surgery by Dr. Praveen Earl during T7 kyphoplasty. Dictated by: Dictated on workstation # [id number]
--- NOTE | 2019-08-06 18:38 | Anesthesia-General Post-Op ---
General Patient Condition Mental Status/LOC: Same as Preop Cardiovascular: Satisfactory Nausea/Vomiting: Absent Respiratory: Satisfactory Pain: Controlled Complications: Absent Post Op Complications Complications None Follow Up Care/Instructions Patient Instructions None needed. Anesthesia/Patient Condition Patient Condition Patient is doing well, no complaints, stable vital signs, no apparent adverse anesthesia problems. No complications reported per nursing. D/C home per [facility] Criteria: CM Rico CRNA Aug 06, 2019 18:38 POS
--- NOTE | 2019-08-06 18:50 | NUR ---
PT RETURNED TO FLOOR, DENIES NEEDS AT THIS TIME, CALL LIGHT IN REACH WILL CONTINUE TO MONITOR
[2019-08-07 00:18] VITALS: BP 131/74
[2019-08-07 04:00] VITALS: BP 152/76
[2019-08-07] MEDS: inSUlin ASPART (NovoLOG) 1 UNIT/0.01 ML (CHARGE PER UNIT) SC SCH (06:27)
[2019-08-07] MEDS: PIPERACILLIN/TAZOBACTAM (BULK) 4.5 GM in NS (IVPB) 100 ML IV SCH (06:27)
[2019-08-07 08:00] VITALS: BP 143/83
--- NOTE | 2019-08-07 08:43 | Cardiology Progress Note ---
Subjective Date Seen by Provider: Aug 07, 2019 Time Seen by Provider: 08:41 Subjective/Events-last exam Patient is in bed, reports pain is improved. No chest pain or dyspnea. Objective-Cardiology Exam Last Set of Vital Signs Vital Signs 08/06/19 08/07/19 08/07/19 08:06 08:00 11:30 Temp 36.8 Pulse 76 Resp 16 B/P (MAP) 143/83 Pulse Ox 98 O2 Delivery Room Air O2 Flow Rate 3.00 FiO2 21 Capillary Refill : Less Than 3 SecondsLess Than 3 Seconds I&O Intake and Output 08/07/19 00:00 Intake Total 1700 ml Output Total 3525 ml Balance -1825 ml Intake Oral 1460 ml IV Total 240 ml Output Urine Total 3525 ml # Bowel Movements 1 General: Alert, Oriented X3, Cooperative, Mild Distress HEENT: Atraumatic, PERRLA Neck: Supple Lungs: Clear to Auscultation, Normal Air Movement Heart: Regular Rate, Normal S1, Normal S2 Abdomen: Normal Bowel Sounds, Soft, No Tenderness Extremities: No Clubbing, No Cyanosis, No Edema, Normal Pulses, No Tenderness/Swelling, Other Skin: Other (ERYTHEMA LEFT LOWER LEG FROM SCRATCHES/ABRASION DOWN TO ANKLE) Neuro: Cranial Nerves 3-12 NL Psych/Mental Status: Mental Status NL, Mood NL A/P-Cardiology Admission Diagnosis Acute T7 fracture Cholelithiasis CAD HTN Assessment/Plan Acute T7 fracture secondary to fall from ladder last week, s/p kyphoplasty, recovering well, continue to monitor. Cholelithiasis, managed by general surgery Cellulitis of the left leg, receiving antibiotics. Normal pedal pulses. Continue to monitor CAD- history of Taxus 2.5x12mm stent [place] [address] Turner, reports last stress test in 2017, echocardiogram done on August 04, 2019 showing normal LV size and function with ejection fraction 55-65 percent, mildly dilated left atrium, aortic valve sclerosis no aortic stenosis, normal pulmonary artery pressure. Hypertension, continue current medication and monitor blood pressure Hyperlipidemia, intolerant to statin with elevated liver enzymes, monitor lipids. Diabetes mellitus, managed by primary care physician Acute on chronic kidney disease, continue to monitor renal function closely. Patient was seen and evaluated with Gladys, examination performed, management plan was discussed, agree with the current scribed note, I made few changes to the note using Italic font Patient was laying down in bed, comfortable, denied any active pain, no shortness of breath Reporting improvement in his abdominal pain Underwent kyphoplasty yesterday and reporting improvement Regarding his coronary artery disease we will continue to monitor as an outpatient, meanwhile I will continue on current medications Clinical Quality Measures DVT/VTE Risk/Contraindication: Risk Factor Score Per Nursin RFS Level Per Nursing on Admit: 4+=Very High GLADYS FUENTES Aug 07, 2019 08:43 INDIRA SAVAGE MD Aug 07, 2019 16:54 POS
[2019-08-07] MEDS ORDERED: LACT1CAP87 PO (08:46)
[2019-08-07] MEDS ORDERED: AMOX-358 PO (08:46)
--- NOTE | 2019-08-07 08:48 | Discharge Inst-Complex ---
PDI Reconcile Patient Problems Problems Reviewed?: Yes Med Rec & Follow Up Appt. New Medications: Amoxicillin/Potassium Clav (Augmentin 875-125 Tablet) 1 Each Tablet 1 EACH PO BID, #10 TAB Lactobacillus Acidophilus (Acidophilus Lactobacilli) 1 Each Capsule 1 EACH PO BID, #30 CAP Hydrocodone/Acetaminophen (Hydrocodon-Acetaminophn 10-325) 1 Each Tablet 1 EA PO Q4H PRN for PAIN-MODERATE (5-7), #40 TAB Continued Medications: Aspirin (Aspirin) 81 Mg Tab.chew 162 MG PO DAILY, TAB Cholecalciferol (Vitamin D3) (Vitamin D-3) 2,000 Unit Capsule 2000 UNIT PO DAILY, CAP Metoprolol Tartrate (Metoprolol Tartrate) 50 Mg Tablet 25 MG PO BID, TAB Vitamin E Acetate (Vitamin E) 400 Unit Capsule 400 UNIT PO DAILY, CAP Prescription: Transmitted to Pharmacy Activity, Diet and PDI Resume Normal Activity: Yes Discharge Diet: ADA Diet Driving Instructions: No Driving for 24 Hours Return to The Hospital For: any concern for worsening illness or injury or acute worsening of pain Symptoms to Reoprt to : Fever Over 101 Degrees F, Pain/Pressure in Chest, D iarrhea(Persistant), Shortness of Breath For Problems or Questions: Contact Your Physician, Go to Emergency Room LOGAN MAS MD Aug 07, 2019 08:48 POS
[2019-08-07] MEDS: SENNA W/DOCUSATE (SENOKOT S) TABLET PO SCH (08:54)
[2019-08-07] MEDS: meTOprolol TARTRATE 25 MG (LOPRESSOR) TABLET PO SCH (08:54)
--- NOTE | 2019-08-07 09:04 | Discharge Summary ---
Diagnosis/Chief Complaint Date of Admission Aug 03, 2019 at 18:25 Date of Discharge Discharge Date: Aug 07, 2019 Discharge Time: 1200 Admission Diagnosis Admission Diagnosis ACUTE ABDOMINAL PAIN DUE TO CHOLELITHIASIS ACUTE T7 COMPRESSION FRACTURE HYPERTENSION UNCONTROLLED PAIN CELLULITIS URINARY RETENTION CHRONIC RENAL INSUFFICIENCY Discharge Diagnosis ACUTE T7 AND T2, T3 COMPRESSION FRACTURES ACUTE ABDOMINAL PAIN CHOLELITHIASIS HYPERTENSION UNCONTROLLED PAIN CELLULITIS URINARY RETENTION CHRONIC RENAL INSUFFICIENCY Reason Hospital Visit SOL IS A 74 Y/O MALE WHO IS KNOWN TO ME FROM CLINIC. HE PRESENTED TO THE HOSPITAL AFTER HAVING A FALL AT HOME OFF OF A LADDER EARLIER IN THE WEEK. KAYLA REPORTS THAT HE HAD SOME DISCOMFORT INITIALLY, BUT OVER THE WEEKEND HIS PAIN INTENSIFIED TO THE POINT THAT HE WAS UNABLE TO MANAGE AT HOME. HE MESSAGED HIS FRIEND WHO INSISTED ON KAYLA GOING TO THE HOSPITAL FOR EVALUATION. UPON EMERGENCY DEPARTMENT EVALUATION, HE WAS FOUND TO HAVE COMPRESSION FRACTURE OF T7 AND CHOLELITHIASIS. HE WAS ADMITTED TO DR. FLYNN FOR POSSIBLE GALLBLADDER RELATED ISSUES WELL HIS TRAUMA FROM THE FALL. Discharge Summary Procedures: VERTEBROPLASTY OF T7 Consultations DR. FLYNN, DR. CABRAL, DR. YANES Discharge Physical Examination Allergies: Coded Allergies: Iodinated Contrast Media (Verified Allergy, Unknown, 03/20/06) Erlsnsu-Nrb-Opz Reductase Inhibitor (Verified Allergy, Unknown, 03/15/11) morphine (Verified Allergy, Unknown, pt has received Lortab & Dilaudid w/o issue, 08/06/19) Vitals & I&Os Vital Signs Date Time Temp Pulse Resp B/P (MAP) Pulse Ox O2 Delivery O2 Flow Rate FiO2 08/07/19 08:00 36.8 76 18 143/83 (103) 99 Nasal Cannula 3.00 08/06/19 08:06 21 General Appearance: Alert, Oriented X3, Cooperative, No Acute Distress HEENT: Atraumatic, PERRLA, Mucous Memb Moist/[place] Respiratory: Clear to Auscultation, Normal Air Movement Cardiovascular: Regular Rate Abdominal: Normal Bowel Sounds, Soft, No Tenderness Extremities: No Cyanosis Skin: Other (ABRASION ON LEFT MEDIAL LOWER LEG - HEALING WITH IMPROVED ERYTHEMA) Psych/Mental Status: Mental Status NL, Mood NL Hospital Course Was the Problem List Reviewed?: Yes ACUTE T2, T3 AND T7 COMPRESSION FRACTURE ACUTE ABDOMINAL PAIN CHOLELITHIASIS HYPERTENSION UNCONTROLLED PAIN CELLULITIS URINARY RETENTION CHRONIC RENAL INSUFFICIENCY CHOLELITHIASIS - DEFER TO DR. KIDO - WILL ADDRESS AN OUTPATIENT ACUTE T2, T3 AND T7 COMPRESSION FRACTURE - MRI SHOWED ACUTE T2, T3, AND T7 COMPRESSION FRACTURES - CONSULT WAS PLACED TO DR. CABRAL ON ADMISSION - DR CABRAL WAS ABLE TO TAKE PT TO SURGERY ON 08/06/19 IN THE EVENING WITH A T7 VERTEBROPLASTY PERFORMED. - PT WILL NEED TO HAVE DEXA OUTPATIENT AND CONSIDER STARTING ON PROLIA OUTPATIENT DUE TO HIS RECURRENT COMPRESSION FX. - PT TO BE DISCHARGED WITH HYDROCODONE ORALLY FOR PAIN CONTROL IF NEEDED. HYPERTENSION METOPROLOL RESTARTED CELLULITIS LEFT LOWER LEG - CHANGED FROM FLAGYL/CIPRO TO ZOSYN ON 08/04/19, ERYTHEMA IMPROVED - CONTINUE WITH ANTIBIOTICS - WILL BE ON AUGMENTIN 875MG BID X 5 MORE DAYS URINARY RETENTION - ESTEVEZ PLACED ON 08/05/19 - WILL BE REMOVED TODAY AND MONITOR OUTPUT PRIOR TO DISCHARGE CHRONIC RENAL INSUFFICIENCY - SUPPORTIVE CARE ONLY WITH MEDICATION MANAGEMENT/ADJUSTMENT BASED ON GFR/CREATININE. DVT PROPHYLAXIS WITH SCD'S - LOVENOX NOT STARTED IN ANTICIPATION OF SURGERY. DISCHARGE TO HOME TODAY. Pending Labs Laboratory Tests 08/07/19 05:36: Glucometer 82 Discharge Condition at discharge IMPROVED Instructions to patient/family Please see electronic discharge instructions given to patient. Discharge Medications Reviewed and agree with Discharge Medication list on patient's Discharge Instruction sheet Medication List: Active Scripts Active Acidophilus Lactobacilli (Lactobacillus Acidophilus) 1 Each Capsule 1 Each PO BID Augmentin 875-125 Tablet (Amoxicillin/Potassium Clav) 1 Each Tablet 1 Each PO BID Hydrocodon-Acetaminophn 10-325 (Hydrocodone/Acetaminophen) 1 Each Tablet 1 Ea PO Q4H PRN Reported Vitamin E (Vitamin E Acetate) 400 Unit Capsule 400 Unit PO DAILY Vitamin D-3 (Cholecalciferol (Vitamin D3)) 2,000 Unit Capsule 2,000 Unit PO DAILY Aspirin 81 Mg Tab.chew 162 Mg PO DAILY Metoprolol Tartrate 50 Mg Tablet 25 Mg PO BID Clinical Quality Measures DVT/VTE Risk/Contraindication: Risk Factor Score Per Nursin RFS Level Per Nursing on Admit: 4+=Very High LOGAN MAS MD Aug 07, 2019 09:04 POS
--- NOTE | 2019-08-07 09:46 | Progress Note ---
Subjective Date Seen by a Provider: Aug 07, 2019 Time Seen by a Provider: 09:20 Subjective/Events-last exam Patient reports doing better today and denies any pain. Reports that he is tolerating diet with no N/V. No fever/chills. Reports that he supposed to go home after he walks some today. Objective Exam Vital Signs Date Time Temp Pulse Resp B/P (MAP) Pulse Ox O2 Delivery O2 Flow Rate FiO2 08/07/19 08:00 36.8 76 18 143/83 (103) 99 Nasal Cannula 3.00 08/07/19 07:35 95 Nasal Cannula 2.00 08/07/19 04:00 36.8 65 16 152/76 (101) 99 Nasal Cannula 3.00 08/07/19 01:50 97 Nasal Cannula 2.00 08/07/19 00:18 36.4 64 20 131/74 (93) 98 Nasal Cannula 3.00 08/06/19 21:29 99 Nasal Cannula 2.00 08/06/19 21:00 16 08/06/19 20:00 Nasal Cannula 2.00 08/06/19 19:26 36.1 58 16 149/77 (101) 100 08/06/19 19:18 98 Nasal Cannula 2.00 08/06/19 19:02 20 08/06/19 18:50 Nasal Cannula 3 08/06/19 18:50 36.2 20 134/69 (90) 97 Nasal Cannula 3 08/06/19 18:45 Nasal Cannula 3 08/06/19 18:40 20 135/69 (91) 97 Nasal Cannula 3 08/06/19 18:30 20 129/77 (94) 96 OxyMask 5 08/06/19 18:30 OxyMask 5 08/06/19 18:20 20 140/83 (102) 97 OxyMask 5 08/06/19 18:15 OxyMask 5 08/06/19 18:08 OxyMask 5 08/06/19 18:08 36.2 20 141/87 (105) 98 OxyMask 5 08/06/19 16:00 37.0 76 18 149/82 (104) 100 Room Air 08/06/19 12:55 77 08/06/19 12:00 36.8 72 16 159/76 (103) 91 Nasal Cannula 1.50 I & O 08/07/19 07:00 Intake Total 1750 ml Output Total 3325 ml Balance -1575 ml Capillary Refill : Less Than 3 SecondsLess Than 3 Seconds General Appearance: No Apparent Distress, WD/WN Neck: Full Range of Motion, Non Tender, Supple Respiratory: Normal Breath Sounds, No Accessory Muscle Use, No Respiratory Distress Cardiovascular: Regular Rate, Rhythm, No Murmur Gastrointestinal: normal bowel sounds, non tender, soft Extremity: Normal Capillary Refill, Normal Inspection, Non Tender Neurologic/Psychiatric: Alert, Oriented x3 Skin: Normal Color, Warm/Dry Results Lab Laboratory Tests 08/06/19 11:01: Glucometer 149H 08/06/19 16:23: Glucometer 106 08/06/19 20:52: Glucometer 119H 08/07/19 05:36: Glucometer 82 Assessment/Plan Assessment/Plan Assess & Plan/Chief Complaint A 74 year old male with T2,T3 and T7 compression fracture with significant pain, who is S/P kyphoplasty. gallstones/gallbladder asymptomatic however may be addressed later. Instructed to watch for any symptoms as well as follow up with us in the office in 2 weeks. Clinical Quality Measures DVT/VTE Risk/Contraindication: Risk Factor Score Per Nursin RFS Level Per Nursing on Admit: 4+=Very High TALISHA TALAVERA [employer]ER[employer] STAFF MEMBER Aug 07, 2019 09:46 POS
[2019-08-07 11:30] VITALS: BP 143/83
--- NOTE | 2019-08-07 11:30 | NUR ---
KAYLA DOTSON demonstrates understanding of discharge instructions and accurately returns instructions upon questioning. Copy of Post-Discharge Instructions given to pt. KAYLA DOTSON is able to manage continuing needs after discharge. Patients belongings returned to pt. Patient discharged from 426-1 on 08/07/19 at 1130. KAYLA DOTSON left floor via w/c, accompanied by staff and friend per auto.
--- NOTE | 2019-08-07 15:53 | NUR ---
"RD ASSESSMENT PMHx: CAD; MN; hypercholesterolemia; HTN; DM; chronic renal insufficiency; s/p kyphoplasty PT INTERACTION: Pt was awake and pleasant during nutrition assessment. Pt states current appetite is miserable, and has been since 08/02. Note pt avg PO intake of 50 x2d, per chart review. Pt states following a diabetic diet at home, and has no issues with chewing/swallowing food at this time. Pt states no recent issues with n/v/c/d at this time. Note last BM was 08/06 and pt currently on bowel regimen of senna of qd, per chart review. Pt states no recent wt changes. Note unable to determine recent wt hx, per chart review. Pt states current DM management is pretty good, and his avg blood glucose levels are in the 110s. ABNORMAL NUTRITION-RELATED LAB VALUES LOW: HDL 30 HIGH: cr 1.69 Est. kcal needs: 0774-9435 kcal | 20-25 kcal/kg Est. Pro needs: 111-130 g Pro | 1.2-1.4 g Pro/kg PES STATEMENT: Inadequate oral intake (NI-2.1) related to loss of appetite as evidenced by pt interview | avg PO intake 50% x2d INTERVENTION: Continue with current diet order of Restricted Fat (<30% of kcal) diet. Pt may benefit from nutrition supplementation if PO intake declines. Will continue to follow and reassess as needs and status change. MONITOR/EVALUATE: PO Intake; Plan of Care; Hydration Status; Weight Status; Lab Values Bekah Day, MS, RD, LD"
--- NOTE | 2019-08-11 10:13 | OPERATIVE REPORT ---
DATE OF SERVICE: 08/06/2019 SURGEON: Henry Earl DO ALMOND SORTER: None. COMPLICATIONS: None. SPECIMEN SENT: T7 vertebral body. ESTIMATED BLOOD LOSS: Minimal. ANESTHESIA: General endotracheal tube anesthesia with local anesthetic. HISTORY OF PRESENT ILLNESS: The patient is a very pleasant 74-year-old gentleman in an extreme back pain. A few days ago, he was on his ladder. The ladder collapsed and he fell. He presented to [facility] with severe abdominal pain. During workup for that radiating abdominal pain and back pain, an MRI was obtained demonstrating an acute T7 vertebral body fracture. He also had some edema in the T3 and T4 vertebral bodies; however, most of his pain was in the T7 region. He did opt to proceed with kyphoplasty augmentation due to the severe pain. He was cleared by medicine. DESCRIPTION OF PROCEDURE: The patient was identified by name on wrist band in the preoperative holding area. His operative site was signed and consent was signed. SCDs were placed. Antibiotics were started. He was taken to the operating room theater and placed under general endotracheal tube anesthesia and then transferred to the operating room table in the prone position. He was prepped and draped in the usual sterile fashion. A formal timeout was conducted. At this point, AP and lateral x-ray were then brought in and centered over the pedicles of T7. I performed a bilateral T7 trans radicular approach. I obtained a biopsy, inflated 2 balloons and then filled the T7 vertebral body with cement. I achieved a good fill from endplate to endplate with no extravasation. Once finished, AP and lateral x-ray demonstrated appropriate placement of the cement. I removed the cannulas, placed dressings and placed the patient in the supine position, took him to PACU where he awoke without incident. He tolerated the procedure well. PLAN: Plan at this time is to readmit to Dr. Chiang's service. He will be discharged when his pain is controlled and when she feels he is ready. Job ID: [id number] DocumentID: [id number] Dictated Date: 08/11/2019 07:31:52 Floral Arranger Date: 08/11/2019 08:10:52 Dictated By: HENRY EARL DO
--- OUTSIDE RECORDS SUMMARY | 2019-08-28 11:56 | XMS REPORT | CCD ---
Author Ace Koch Organization Bianca Chiang MD, [facility] Address [address] [place] [address] Phone Care Team Providers Care Casket Assembler Name Role Phone PP Unavailable CCM Unavailable Summary Purpose Interface Exchange Insurance Providers Payer name Policy type / Coverage type Covered alliance party ID Effective Begin Date Effective End Date WPS Medicare Part B Medicare Part B [id number] 2018 Unknown [facility] Part B [id number] Un known Family history Father Diagnosis Age At Onset Heart Attack Unknown Cancer Unknown Mother Diagnosis Age At Onset Heart Attack Unknown Osteoporosis Unknown Arthritis Unknown Hypertension Unknown Social History Social History Element Codes Description Effective Dates Marital status Unknown S ana maria 07/31/2016 Number of children Unknown 0 07/31/2016 Employment Unknown Retir ed 07/31/2016 Allergies, Adverse Reactions, Alerts Substance Reaction Codes Entered Date Inactivated Date Status MORPHINE SULFATE RxNorm: 7052 07/31/2016 No Inactive Date Active [id number] REDU CTASE INHIBITORS Unknown 07/31/2016 No Inactive Date Active Past Medical History Illness Codes Condition Status Onset Date Resolved Date Essential (primary) hypertension ICD-9: 401.9 ICD-10: I10 Active 07/30/2016 Unknown Type 2 diabetes belle itus without complications ICD-9: 250.00 ICD-10: E11.9 Active 07/30/2016 Unknown Age-related osteopor osis without current pathological fracture ICD-9: 733.00 ICD-10: M81.0 Active 04/30/2018 Unknown Low back pain ICD-9: 724.2 ICD-10: M54.5 Active 09/13/2017 Unknown Vitamin D deficiency , unspecified ICD-9: 268.9 ICD-10: E55.9 Active 10/30/2017 Unknown Anemia, unspecified ICD- 9: 285.9 ICD-10: D64.9 Active 01/31/2018 Unknown Encounter for immuni zation ICD-9: V04.81 ICD-10: Z23 Active 06/21/2017 Unknown Diabetes Unknown Active 04/30/2017 Unknow n Hypertension Unknown Active 04/30/2017 Unknow n Problems Condition Codes Effectiv e Dates Condition Status Essential (primary) hypertension ICD-9: 401.9 ICD-10: I10 07/30/2016 Active Type 2 diabetes belle itus without complications ICD-9: 250.00 ICD-10: E11.9 07/30/2016 Active Age-related osteopor osis without current pathological fracture ICD-9: 733.00 ICD-10: M81.0 04/30/2018 Active Low back pain ICD-9: 724.2 ICD-10: M54.5 09/13/2017 Active Vitamin D deficiency , unspecified ICD-9: 268.9 ICD-10: E55.9 10/30/2017 Active Anemia, unspecified ICD- 9: 285.9 ICD-10: D64.9 01/31/2018 Active Encounter for immuni zation ICD-9: V04.81 ICD-10: Z23 06/21/2017 Active Diabetes Unknown 04/30/2017 Active Hypertension Unknown 04/30/2017 Active Medications Medication Codes Instruc tions Start Date Stop Date Sta tus Fill Instructions Vitamin D2 50,000 un it capsule RxNorm: 641791 1 Capsule(s) PO QW ta ke with daily vitamin d3 2000 units 11/13/2017 02/10/2018 Inactive Vitamin D2 50,000 un it capsule RxNorm: 711344 1 Capsule(s) PO QW ta ke with daily vitamin d3 2000 units 11/13/2017 11/12/2017 Inactive metoprolol tartrate 50 mg tablet RxNorm: 110702 Tablet(s) PO TAKE ONE TABLET BY MOUTH TWICE A DAY 10/30/2017 04/27/2018 Inactive prednisone 20 mg tablet RxNorm: 274814 2 Tablet(s) PO daily 09/18/2017 09/17/2017 Inactive prednisone 20 mg tablet RxNorm: 526873 2 Tablet(s) PO daily 09/18/2017 09/22/2017 Inactive cyclobenzaprine 5 mg tablet RxNorm: 721452 1 Tablet(s) PO TID as needed muscle spasms 09/13/2017 09/17/2017 Inactive metoprolol tartrate 25 mg tablet RxNorm: 841180 TAKE ONE TABLET BY [facility] TWICE A DAY 08/03/2017 10/29/2017 Inactive metoprolol tartrate 25 mg tablet RxNorm: 881043 1 Tablet(s) PO BID 05/02/2017 07/30/2017 Inactive aspirin 81 mg chewab le tablet RxNorm: 796483 2 Tablet(s) PO daily 04/30/2017 05/29/2017 Inactive metoprolol tartrate 50 mg tablet RxNorm: 973101 1/2 Tablet(s) PO BID No Start Date Active Vitamin D3 2,000 uni t capsule RxNorm: 340682 1 Capsule(s) PO daily No Start Date Active calcium 600 mg capsule RxNorm: 1 Capsule(s) PO daily No Start Date Active Prevacid 15 mg capsu le,delayed release RxNorm: 767321 1 Capsule(s) PO daily No Start Date Active tramadol 50 mg tablet RxNorm: 588012 1 -2 Tablet(s) PO Q4H as needed No Start Date Active ramipril 2.5 mg tablet RxNorm: 529245 1 Tablet(s) PO daily No Start Date 07/31/2016 Inactive aspirin 325 mg tablet RxNorm: 863623 1 Tablet(s) PO daily No Start Date 04/27/2017 Inactive metoprolol tartrate 25 mg tablet RxNorm: 270844 1 Tablet(s) PO BID No Start Date 05/01/2017 Inactive Medication Administered No Medication Administered data Immunizations Vaccine Codes Date Status Influenza CVX: 141 06/27 completed Pneumococcal CVX: 133 completed Influenza CVX: 141 06/21 completed Assessments Condition Codes Effectiv e Dates Type 2 diabetes mellitus without complications ICD-10: E11.9 ICD-9: 250.00 02/27/2019 Essential (primary) hypertension ICD -10: I10 ICD-9: 401.9 02/27/2019 Age-related osteoporosis without current pathological fracture ICD-10: M81.0 ICD-9: 733.00 04/30/2018 Anemia, unspecified ICD-10: D64.9 ICD-9: 285.9 01/31/2018 Vitamin D deficiency, unspecified IC D-10: E55.9 ICD-9: 268.9 10/30/2017 Low back pain ICD-10: M54.5 ICD-9: 724.2 10/30/2017 Encounter for immunization ICD-10: Z 23 ICD-9: V04.81 06/21/2017 Reason For Visit Reason For Visit Effective Dates Notes hypertension 02/27/2019 hypertension 08/30/2018 hypertension 04/30/2018 hypertension 10/30/2017 low back pain 09/13/2017 vaccination against influenza 06/21/2017 hypertension 04/30/2017 hypertension 10/30/2016 hypertension 07/31/2016 Results Observation Observation Code Item Item Code Result Date Lipid Ord30 CHOL 133 mg/dL 02/25/2019 Lipid Ord30 HDL 32.0 mg/dl 02/25/2019 Lipid Ord30 TRIG 120 mg/dL 02/25/2019 Lipid Ord30 LDL 77 mg/dL 02/25/2019 Lipid Ord30 C/HDL 4.2 Ratio 02/25/2019 %Hba1C Exb815 % HbA1c 46658-7 6.1 % 02/25/2019 %Hba1C Vaz080 Gluc Ave 128 mg/dL 02/25/2019 Cbc With Differential Ord2 WBC 5.08 K/ul 02/25/2019 Cbc With Differential Ord2 RBC 4.18 M/ul 02/25/2019 Cbc With Differential Ord2 HGB 13.5 g/dl 02/25/2019 Cbc With Differential Ord2 HCT 40.1 % 02/25/2019 Cbc With Differential Ord2 Neut% 48.3 % 02/25/2019 Cbc With Differential Ord2 MCV 95.9 fl 02/25/2019 Cbc With Differential Ord2 Lymph% 35.0 % 02/25/2019 Cbc With Differential Ord2 MCH 32.3 pg 02/25/2019 Cbc With Differential Ord2 [place]% 13.2 % 02/25/2019 Cbc With Differential Ord2 Eos% 3.1 % 02/25/2019 Cbc With Differential Ord2 MCHC 33.7 pg 02/25/2019 Cbc With Differential Ord2 Baso% 0.4 % 02/25/2019 Cbc With Differential Ord2 PLT 118 K/ul 02/25/2019 Cbc With Differential Ord2 RDW 14.0 % 02/25/2019 Cbc With Differential Ord2 Neut ABS# 2.45 K/ul 02/25/2019 Cbc With Differential Ord2 Lymph ABS# 1.78 K/ul 02/25/2019 Cbc With Differential Ord2 [place] ABS# 0.7 K/ul 02/25/2019 Cbc With Differential Ord2 Eos ABS# 0.2 K/ul 02/25/2019 Cbc With Differential Ord2 Baso ABS# 0.0 K/ul 02/25/2019 Tsh Ord6 TSH (3rd IS) 1.30 uIU/mL 02/25/2019 Comp Metabolic Jdb907 NA 138 mEq/L 02/25/2019 Comp Metabolic Htb443 K 4.0 mEq/L 02/25/2019 Comp Metabolic Pzc832 CL 104 mEq/L 02/25/2019 Comp Metabolic Psa062 CO2 27.0 mEq/L 02/25/2019 Comp Metabolic Bww875 AN ION GAP 11 02/25/2019 Comp Metabolic Vgg943 GL UCOSE 97 mg/dL 02/25/2019 Comp Metabolic Hvw086 Cr eat 1.6 mg/dL 02/25/2019 Comp Metabolic Lhw858 eG FR 45 ml/min/1.73m2 02/25 Comp Metabolic Qqs497 BUN 21 mg/dL 02/25/2019 Comp Metabolic Riz010 B/ C Ratio 13.0 Ratio 02/25/2019 Comp Metabolic Ubp598 CA LCIUM 9.8 mg/dL 02/25/2019 Comp Metabolic Oee463 AL K PHOS 58 U/L 02/25/2019 Comp Metabolic Zzz261 T(SGOT) 15 U/L 02/25/2019 Comp Metabolic Yoh579 AL T(SGPT) 12 U/L 02/25/2019 Comp Metabolic Asr861 BI LI T 0.6 mg/dL 02/25/2019 Comp Metabolic Xgh889 AL BUMIN 3.7 g/dL 02/25/2019 Comp Metabolic Kzt786 TP RO 7.0 g/dL 02/25/2019 Comp Metabolic Qba674 GL OB 3.3 g/dL 02/25/2019 Comp Metabolic Otu953 A/ G Ratio 1.1 Ratio 02/25/2019 Comp Metabolic Skd446 Os mo 279 mOsmo 02/25/2019 B12 Qcw422 B12 781.00 pg/ml 02/06/2018 Folate Ord36 Folate 14.87 ng/mL 02/06/2018 Parathyroid Hormone Wsc905 PTH 39.10 pg/ml 01/21/2018 Vitamin D 25 Oh Jea1249 VITAMIN D, 25 HYDROXY 40.13 ng/mL 01/21/2018 Cbc With Differential Ord2 WBC 5.61 K/ul 01/21/2018 Cbc With Differential Ord2 RBC 3.96 M/ul 01/21/2018 Cbc With Differential Ord2 HGB 12.8 g/dl 01/21/2018 Cbc With Differential Ord2 HCT 39.4 % 01/21/2018 Cbc With Differential Ord2 Neut% 56.0 % 01/21/2018 Cbc With Differential Ord2 MCV 99.5 fl 01/21/2018 Cbc With Differential Ord2 Lymph% 26.9 % 01/21/2018 Cbc With Differential Ord2 MCH 32.3 pg 01/21/2018 Cbc With Differential Ord2 [place]% 13.0 % 01/21/2018 Cbc With Differential Ord2 MCHC 32.5 pg 01/21/2018 Cbc With Differential Ord2 Eos% 3.9 % 01/21/2018 Cbc With Differential Ord2 PLT 147 K/ul 01/21/2018 Cbc With Differential Ord2 Baso% 0.2 % 01/21/2018 Cbc With Differential Ord2 RDW 13.0 % 01/21/2018 Cbc With Differential Ord2 Neut ABS# 3.14 K/ul 01/21/2018 Cbc With Differential Ord2 Lymph ABS# 1.51 K/ul 01/21/2018 Cbc With Differential Ord2 [place] ABS# 0.7 K/ul 01/21/2018 Cbc With Differential Ord2 Eos ABS# 0.2 K/ul 01/21/2018 Cbc With Differential Ord2 Baso ABS# 0.0 K/ul 01/21/2018 %Hba1C Wat702 % HbA1c 90307-1 5.9 % 01/21/2018 %Hba1C Knj212 Gluc Ave 123 mg/dL 01/21/2018 Tsh Ord6 TSH (3rd IS) 1.96 uIU/mL 01/21/2018 Comp Metabolic Ind738 NA 139 mEq/L 01/21/2018 Comp Metabolic Rzg560 K 4.2 mEq/L 01/21/2018 Comp Metabolic Nme399 CL 106 mEq/L 01/21/2018 Comp Metabolic Jxv409 CO2 26.0 mEq/L 01/21/2018 Comp Metabolic Tuw308 AN ION GAP 11 01/21/2018 Comp Metabolic Bsi434 GL UCOSE 102 mg/dL 01/21/2018 Comp Metabolic Uef226 Cr eat 1.6 mg/dL 01/21/2018 Comp Metabolic Pee778 eG FR 47 ml/min/1.73m2 01/21 Comp Metabolic Ckx714 BUN 23 mg/dL 01/21/2018 Comp Metabolic Ehw101 B/ C Ratio 14.6 Ratio 01/21/2018 Comp Metabolic Tdb819 CA LCIUM 9.6 mg/dL 01/21/2018 Comp Metabolic Kis891 AL K PHOS 61 U/L 01/21/2018 Comp Metabolic Huk922 T(SGOT) 15 U/L 01/21/2018 Comp Metabolic Nnr110 AL T(SGPT) 10 U/L 01/21/2018 Comp Metabolic Epu115 BI LI T 0.5 mg/dL 01/21/2018 Comp Metabolic Mge845 AL BUMIN 3.6 g/dL 01/21/2018 Comp Metabolic Jif463 TP RO 6.7 g/dL 01/21/2018 Comp Metabolic God196 GL OB 3.1 g/dL 01/21/2018 Comp Metabolic Jwp176 A/ G Ratio 1.2 Ratio 01/21/2018 Comp Metabolic Zim983 Os mo 281 mOsmo 01/21/2018 Comp Metabolic Rom031 NA 140 mEq/L 10/30/2017 Comp Metabolic Ydz707 K 4.6 mEq/L 10/30/2017 Comp Metabolic Pux305 CL 106 mEq/L 10/30/2017 Comp Metabolic Fca488 CO2 24.0 mEq/L 10/30/2017 Comp Metabolic Ecs534 AN ION GAP 15 10/30/2017 Comp Metabolic Llq247 GL UCOSE 126 mg/dL 10/30/2017 Comp Metabolic Hoe937 Cr eat 1.4 mg/dL 10/30/2017 Comp Metabolic Sun225 eG FR 53 ml/min/1.73m2 10/30 Comp Metabolic Hhy324 BUN 22 mg/dL 10/30/2017 Comp Metabolic Yfl029 B/ C Ratio 15.6 Ratio 10/30/2017 Comp Metabolic Lkk959 CA LCIUM 9.7 mg/dL 10/30/2017 Comp Metabolic Etu623 AL K PHOS 70 U/L 10/30/2017 Comp Metabolic Vqe266 T(SGOT) 18 U/L 10/30/2017 Comp Metabolic Uce122 AL T(SGPT) 16 U/L 10/30/2017 Comp Metabolic Nai517 BI LI T 0.4 mg/dL 10/30/2017 Comp Metabolic Gix407 AL BUMIN 3.6 g/dL 10/30/2017 Comp Metabolic Tla299 TP RO 6.6 g/dL 10/30/2017 Comp Metabolic Jof342 GL OB 3.0 g/dL 10/30/2017 Comp Metabolic Kyw198 A/ G Ratio 1.2 Ratio 10/30/2017 Comp Metabolic Ags771 Os mo 284 mOsmo 10/30/2017 Cbc With Differential Ord2 WBC 5.60 K/ul 10/30/2017 Cbc With Differential Ord2 RBC 4.04 M/ul 10/30/2017 Cbc With Differential Ord2 HGB 13.5 g/dl 10/30/2017 Cbc With Differential Ord2 HCT 38.6 % 10/30/2017 Cbc With Differential Ord2 Neut% 54.5 % 10/30/2017 Cbc With Differential Ord2 MCV 95.5 fl 10/30/2017 Cbc With Differential Ord2 Lymph% 25.5 % 10/30/2017 Cbc With Differential Ord2 MCH 33.4 pg 10/30/2017 Cbc With Differential Ord2 [place]% 15.5 % 10/30/2017 Cbc With Differential Ord2 MCHC 35.0 pg 10/30/2017 Cbc With Differential Ord2 Eos% 4.3 % 10/30/2017 Cbc With Differential Ord2 PLT 88 K/ul 10/30/2017 Cbc With Differential Ord2 Baso% 0.2 % 10/30/2017 Cbc With Differential Ord2 RDW 14.2 % 10/30/2017 Cbc With Differential Ord2 Neut ABS# 3.05 K/ul 10/30/2017 Cbc With Differential Ord2 Lymph ABS# 1.43 K/ul 10/30/2017 Cbc With Differential Ord2 [place] ABS# 0.9 K/ul 10/30/2017 Cbc With Differential Ord2 Eos ABS# 0.2 K/ul 10/30/2017 Cbc With Differential Ord2 Baso ABS# 0.0 K/ul 10/30/2017 Vitamin D 25 Oh Mfp0166 VITAMIN D, 25 HYDROXY 22.30 ng/mL 10/30/2017 %Hba1C Mes814 % HbA1c 83522-2 6.9 % 10/30/2017 %Hba1C Lij960 Gluc Ave 151 mg/dL 10/30/2017 Cbc With Differential Ord2 WBC 5.16 K/ul 04/25/2017 Cbc With Differential Ord2 RBC 4.27 M/ul 04/25/2017 Cbc With Differential Ord2 HGB 13.9 g/dl 04/25/2017 Cbc With Differential Ord2 HCT 40.7 % 04/25/2017 Cbc With Differential Ord2 Neut% 52.9 % 04/25/2017 Cbc With Differential Ord2 MCV 95.3 fl 04/25/2017 Cbc With Differential Ord2 Lymph% 31.2 % 04/25/2017 Cbc With Differential Ord2 MCH 32.6 pg 04/25/2017 Cbc With Differential Ord2 [place]% 12.8 % 04/25/2017 Cbc With Differential Ord2 MCHC 34.2 pg 04/25/2017 Cbc With Differential Ord2 Eos% 2.9 % 04/25/2017 Cbc With Differential Ord2 PLT 92 K/ul 04/25/2017 Cbc With Differential Ord2 Baso% 0.2 % 04/25/2017 Cbc With Differential Ord2 RDW 14.0 % 04/25/2017 Cbc With Differential Ord2 Neut ABS# 2.73 K/ul 04/25/2017 Cbc With Differential Ord2 Lymph ABS# 1.61 K/ul 04/25/2017 Cbc With Differential Ord2 [place] ABS# 0.7 K/ul 04/25/2017 Cbc With Differential Ord2 Eos ABS# 0.2 K/ul 04/25/2017 Cbc With Differential Ord2 Baso ABS# 0.0 K/ul 04/25/2017 %Hba1C Eab009 % HbA1c 47252-0 6.1 % 04/25/2017 %Hba1C Grg840 Gluc Ave 128 mg/dL 04/25/2017 Tsh Ord6 hTSH II 1.39 uIU/mL 04/25/2017 Lipid Ord30 CHOL 126 mg/dL 04/25/2017 Lipid Ord30 HDL 37.0 mg/dl 04/25/2017 Lipid Ord30 TRIG 77 mg/dL 04/25/2017 Lipid Ord30 LDL 74 mg/dL 04/25/2017 Lipid Ord30 C/HDL 3.4 Ratio 04/25/2017 Comp Metabolic Vjb662 NA 139 mEq/L 04/25/2017 Comp Metabolic Byz202 K 4.2 mEq/L 04/25/2017 Comp Metabolic Eln610 CL 106 mEq/L 04/25/2017 Comp Metabolic Ydv800 CO2 24.0 mEq/L 04/25/2017 Comp Metabolic Kyu319 AN ION GAP 13 04/25/2017 Comp Metabolic Qam822 GL UCOSE 105 mg/dL 04/25/2017 Comp Metabolic Dsm754 Cr eat 1.6 mg/dL 04/25/2017 Comp Metabolic Izh083 eG FR 46 ml/min/1.73m2 04/25 Comp Metabolic Vwd550 BUN 21 mg/dL 04/25/2017 Comp Metabolic Ggv246 B/ C Ratio 13.2 Ratio 04/25/2017 Comp Metabolic Cxt921 CA LCIUM 9.5 mg/dL 04/25/2017 Comp Metabolic Oyf582 AL K PHOS 43 U/L 04/25/2017 Comp Metabolic Sru140 T(SGOT) 17 U/L 04/25/2017 Comp Metabolic Prl511 AL T(SGPT) 16 U/L 04/25/2017 Comp Metabolic Wos906 BI LI T 0.5 mg/dL 04/25/2017 Comp Metabolic Qta548 AL BUMIN 3.5 g/dL 04/25/2017 Comp Metabolic Ylz328 TP RO 6.6 g/dL 04/25/2017 Comp Metabolic Wel806 GL OB 3.2 g/dL 04/25/2017 Comp Metabolic Mhx578 A/ G Ratio 1.1 Ratio 04/25/2017 Comp Metabolic Cgq782 Os mo 281 mOsmo 04/25/2017 Lipid Ord30 CHOL 130 mg/dL 10/30/2016 Lipid Ord30 HDL 35.0 mg/dl 10/30/2016 Lipid Ord30 TRIG 99 mg/dL 10/30/2016 Lipid Ord30 LDL 75 mg/dL 10/30/2016 Lipid Ord30 C/HDL 3.7 Ratio 10/30/2016 Cbc With Differential Ord2 WBC 4.95 K/ul 10/30/2016 Cbc With Differential Ord2 RBC 4.47 M/ul 10/30/2016 Cbc With Differential Ord2 HGB 14.2 g/dl 10/30/2016 Cbc With Differential Ord2 HCT 41.6 % 10/30/2016 Cbc With Differential Ord2 Neut% 46.0 % 10/30/2016 Cbc With Differential Ord2 MCV 93.1 fl 10/30/2016 Cbc With Differential Ord2 Lymph% 36.2 % 10/30/2016 Cbc With Differential Ord2 MCH 31.8 pg 10/30/2016 Cbc With Differential Ord2 [place]% 15.2 % 10/30/2016 Cbc With Differential Ord2 MCHC 34.1 pg 10/30/2016 Cbc With Differential Ord2 Eos% 2.2 % 10/30/2016 Cbc With Differential Ord2 PLT 111 K/ul 10/30/2016 Cbc With Differential Ord2 Baso% 0.4 % 10/30/2016 Cbc With Differential Ord2 RDW 13.8 % 10/30/2016 Cbc With Differential Ord2 Neut ABS# 2.28 K/ul 10/30/2016 Cbc With Differential Ord2 Lymph ABS# 1.79 K/ul 10/30/2016 Cbc With Differential Ord2 [place] ABS# 0.8 K/ul 10/30/2016 Cbc With Differential Ord2 Eos ABS# 0.1 K/ul 10/30/2016 Cbc With Differential Ord2 Baso ABS# 0.0 K/ul 10/30/2016 %Hba1C Upy640 % HbA1c 08703-7 6.0 % 10/30/2016 %Hba1C Cqn307 Gluc Ave 126 mg/dL 10/30/2016 Comp Metabolic Fdj361 NA 135 mEq/L 10/30/2016 Comp Metabolic Yug243 K 4.4 mEq/L 10/30/2016 Comp Metabolic Udn795 CL 102 mEq/L 10/30/2016 Comp Metabolic Vft521 CO2 27.0 mEq/L 10/30/2016 Comp Metabolic Xre974 AN ION GAP 10 10/30/2016 Comp Metabolic Fpd155 GL UCOSE 101 mg/dL 10/30/2016 Comp Metabolic Ipk975 Cr eat 1.6 mg/dL 10/30/2016 Comp Metabolic Dch810 eG FR 47 ml/min/1.73m2 10/30 Comp Metabolic Fsi542 BUN 19 mg/dL 10/30/2016 Comp Metabolic Gtt914 B/ C Ratio 12.3 Ratio 10/30/2016 Comp Metabolic Lky957 CA LCIUM 10.2 mg/dL 10/30/2016 Comp Metabolic Ayg599 AL K PHOS 54 U/L 10/30/2016 Comp Metabolic Sih229 T(SGOT) 20 U/L 10/30/2016 Comp Metabolic Wse054 AL T(SGPT) 16 U/L 10/30/2016 Comp Metabolic Exq100 BI LI T 0.7 mg/dL 10/30/2016 Comp Metabolic Neq726 AL BUMIN 3.7 g/dL 10/30/2016 Comp Metabolic Bdg088 TP RO 7.3 g/dL 10/30/2016 Comp Metabolic Tld994 GL OB 3.6 g/dL 10/30/2016 Comp Metabolic Ojj569 A/ G Ratio 1.0 Ratio 10/30/2016 Comp Metabolic Wqd071 Os mo 272 mOsmo 10/30/2016 Tsh Ord6 hTSH II 1.03 uIU/mL 10/30/2016 Review of Systems System Result Effective Dates Constitutional No recent illness 02/27/2019 Constitutional No chills 02/27/2019 Constitutional No fever 02/27/2019 Eyes No eye erythema Ears/Nose/Throat/Neck No nasal allergies 02/27/2019 Ears/Nose/Throat/Neck No nasal discharge 02/27/2019 Cardiovascular No chest pain/pressure 02/27/2019 Cardiovascular No dyspnea 02/27/2019 Respiratory No chest congestion 02/27/2019 Respiratory No cough Gastrointestinal No abdominal pain 02/27/2019 Gastrointestinal No constipation 02/27/2019 Gastrointestinal No diarrhea 02/27/2019 Musculoskeletal back pain 02/27/2019 Dermatologic No rash Neurologic No alteration of consciousness 02/27/2019 Neurologic No mental status change 02/27/2019 Endocrine diabetes mellitus type 2 02/27/2019 Constitutional No recent illness 08/30/2018 Constitutional No chills 08/30/2018 Constitutional No fever 08/30/2018 Eyes No eye erythema Ears/Nose/Throat/Neck No nasal allergies 08/30/2018 Ears/Nose/Throat/Neck No nasal discharge 08/30/2018 Cardiovascular No chest pain/pressure 08/30/2018 Cardiovascular No dyspnea 08/30/2018 Respiratory No chest congestion 08/30/2018 Respiratory No cough Gastrointestinal No abdominal pain 08/30/2018 Gastrointestinal No constipation 08/30/2018 Gastrointestinal No diarrhea 08/30/2018 Musculoskeletal back pain 08/30/2018 Dermatologic No rash Neurologic No alteration of consciousness 08/30/2018 Neurologic No mental status change 08/30/2018 Endocrine diabetes mellitus type 2 08/30/2018 Constitutional No recent illness 04/30/2018 Constitutional No chills 04/30/2018 Constitutional No fever 04/30/2018 Eyes No eye erythema Ears/Nose/Throat/Neck No nasal allergies 04/30/2018 Ears/Nose/Throat/Neck No nasal discharge 04/30/2018 Cardiovascular No chest pain/pressure 04/30/2018 Cardiovascular No dyspnea 04/30/2018 Respiratory No chest congestion 04/30/2018 Respiratory No cough Gastrointestinal No abdominal pain 04/30/2018 Gastrointestinal No constipation 04/30/2018 Gastrointestinal No diarrhea 04/30/2018 Musculoskeletal back pain 04/30/2018 Dermatologic No rash Neurologic No alteration of consciousness 04/30/2018 Neurologic No mental status change 04/30/2018 Endocrine diabetes mellitus type 2 04/30/2018 Constitutional No recent illness 10/30/2017 Constitutional No chills 10/30/2017 Constitutional No fever 10/30/2017 Eyes No eye erythema Ears/Nose/Throat/Neck No nasal discharge 10/30/2017 Ears/Nose/Throat/Neck No nasal allergies 10/30/2017 Cardiovascular No chest pain/pressure 10/30/2017 Cardiovascular No dyspnea 10/30/2017 Respiratory No cough Respiratory No chest congestion 10/30/2017 Gastrointestinal No abdominal pain 10/30/2017 Gastrointestinal No constipation 10/30/2017 Gastrointestinal No diarrhea 10/30/2017 Musculoskeletal back pain 10/30/2017 Dermatologic No rash Neurologic No alteration of consciousness 10/30/2017 Neurologic No mental status change 10/30/2017 Endocrine diabetes mellitus type 2 10/30/2017 Constitutional No recent illness 09/13/2017 Constitutional No chills 09/13/2017 Constitutional No fever 09/13/2017 Eyes No eye erythema 07/2018 Ears/Nose/Throat/Neck No nasal discharge 09/13/2017 Cardiovascular No chest pain/pressure 09/13/2017 Cardiovascular No dyspnea 09/13/2017 Respiratory No cough 07/2018 Respiratory No dyspnea 0 09/13/2017 Neurologic No alteration of consciousness 09/13/2017 Neurologic No mental status change 09/13/2017 Musculoskeletal back pain 09/13/2017 Constitutional No recent illness 04/30/2017 Constitutional No chills 04/30/2017 Constitutional No diaphoresis 04/30/2017 Constitutional No fever 04/30/2017 Eyes No eye erythema Ears/Nose/Throat/Neck No nasal allergies 04/30/2017 Ears/Nose/Throat/Neck No nasal discharge 04/30/2017 Ears/Nose/Throat/Neck No postnasal drip 04/30/2017 Ears/Nose/Throat/Neck No sinus congestion 04/30/2017 Cardiovascular No chest pain/pressure 04/30/2017 Cardiovascular No dyspnea 04/30/2017 Respiratory No chest congestion 04/30/2017 Respiratory No cough Respiratory No dyspnea 0 04/30/2017 Gastrointestinal No abdominal pain 04/30/2017 Gastrointestinal No constipation 04/30/2017 Gastrointestinal No diarrhea 04/30/2017 Gastrointestinal No nausea 04/30/2017 Gastrointestinal No vomiting 04/30/2017 Musculoskeletal No joint complaint 04/30/2017 Dermatologic No rash Neurologic No alteration of consciousness 04/30/2017 Neurologic No mental status change 04/30/2017 Endocrine diabetes mellitus type 2 04/30/2017 Constitutional No recent illness 10/30/2016 Constitutional No chills 10/30/2016 Constitutional No diaphoresis 10/30/2016 Constitutional No fever 10/30/2016 Eyes No eye erythema Ears/Nose/Throat/Neck No nasal allergies 10/30/2016 Ears/Nose/Throat/Neck No nasal discharge 10/30/2016 Ears/Nose/Throat/Neck No postnasal drip 10/30/2016 Ears/Nose/Throat/Neck No sinus congestion 10/30/2016 Cardiovascular No chest pain/pressure 10/30/2016 Cardiovascular No dyspnea 10/30/2016 Respiratory No chest congestion 10/30/2016 Respiratory No cough Respiratory No dyspnea 0 10/30/2016 Gastrointestinal No abdominal pain 10/30/2016 Gastrointestinal No constipation 10/30/2016 Gastrointestinal No diarrhea 10/30/2016 Gastrointestinal No nausea 10/30/2016 Gastrointestinal No vomiting 10/30/2016 Musculoskeletal No joint complaint 10/30/2016 Dermatologic No rash Neurologic No alteration of consciousness 10/30/2016 Neurologic No mental status change 10/30/2016 Endocrine diabetes mellitus type 2 10/30/2016 Constitutional No recent illness 07/31/2016 Constitutional No chills 07/31/2016 Constitutional No diaphoresis 07/31/2016 Constitutional No fever 07/31/2016 Eyes No eye erythema Ears/Nose/Throat/Neck No nasal allergies 07/31/2016 Ears/Nose/Throat/Neck No nasal discharge 07/31/2016 Ears/Nose/Throat/Neck No postnasal drip 07/31/2016 Ears/Nose/Throat/Neck No sinus congestion 07/31/2016 Cardiovascular No chest pain/pressure 07/31/2016 Cardiovascular No dyspnea 07/31/2016 Respiratory No chest congestion 07/31/2016 Respiratory No cough Respiratory No dyspnea 1 09/30/2015 Gastrointestinal No abdominal pain 07/31/2016 Gastrointestinal No constipation 07/31/2016 Gastrointestinal No diarrhea 07/31/2016 Gastrointestinal No nausea 07/31/2016 Gastrointestinal No vomiting 07/31/2016 Musculoskeletal No joint complaint 07/31/2016 Dermatologic No rash Neurologic No alteration of consciousness 07/31/2016 Neurologic No mental status change 07/31/2016 Endocrine diabetes mellitus type 2 07/31/2016 Physical Exam Exam Name System Name It em Name Status Result Effective Dates Notes Full Exam - General 1994 Constitutional general appearance Overall: well developed 02/27/2019 None Full Exam - General 1994 Constitutional general appearance Overall: in no acute distress 02/27/2019 None Full Exam - General 1994 Constitutional general appearance Overall: well nourished 02/27/2019 None Full Exam - General 1994 Eyes conjunctiva/eyelids Overall: conjunctiva clear 02/27/2019 None Full Exam - General 1994 Eyes conjunctiva/eyelids Overall: cornea clear 02/27/2019 None Full Exam - General 1994 Eyes conjunctiva/eyelids Overall: eyelids normal 02/27/2019 None Full Exam - General 1994 Eyes pupils and irises Overall: pupils equal, round, reactive to light and accomodation 02/27/2019 None Full Exam - General 1994 Ears/Nose/Throat lips/teeth/gingiva Overall: benign lips 02/27/2019 None Full Exam - General 1994 Ears/Nose/Throat oral cavity/pharynx/larynx Overall: oral mucosa clear 02/27/2019 None Full Exam - General 1994 Ears/Nose/Throat oral cavity/pharynx/larynx Overall: oropharyngeal mucosa clear 02/27/2019 None Full Exam - General 1994 Respiratory auscultation Overall: breath sounds clear bilaterally 02/27/2019 None Full Exam - General 1994 Respiratory respiratory effort/rhythm Overall: no retractions 02/27/2019 None Full Exam - General 1994 Respiratory respiratory effort/rhythm Overall: normal rate 02/27/2019 None Full Exam - General 1994 Cardiovascular auscultation of heart Rate: regular rate 02/27/2019 None Full Exam - General 1994 Cardiovascular auscultation of heart Rhythm: regular rhythm 02/27/2019 None Full Exam - General 1994 Abdomen abdominal exam Overall: normal bowel sounds 02/27/2019 None Full Exam - General 1994 Musculoskeletal gait and station Overall: normal gait 02/27/2019 None Full Exam - General 1994 Musculoskeletal gait and station Overall: normal station 02/27/2019 None Full Exam - General 1994 Musculoskeletal head and neck Overall: head atraumatic 02/27/2019 None Full Exam - General 1994 Neurologic cranial nerves Overall: crainial nerves 2 - 12 grossly intact 02/27/2019 None Full Exam - General 1994 Psychiatric orientation/consciousness Overall: oriented to person, place and time 02/27/2019 None Full Exam - General 1994 Psychiatric mood and affect Overall: normal mood and affect 02/27/2019 None Full Exam - General 1994 Psychiatric appearance Overall: well-groomed, good eye contact 02/27/2019 None Full Exam - General 1994 Constitutional general appearance Overall: well developed 08/30/2018 None Full Exam - General 1994 Constitutional general appearance Overall: in no acute distress 08/30/2018 None Full Exam - General 1994 Constitutional general appearance Overall: well nourished 08/30/2018 None Full Exam - General 1994 Eyes conjunctiva/eyelids Overall: conjunctiva clear 08/30/2018 None Full Exam - General 1994 Eyes conjunctiva/eyelids Overall: cornea clear 08/30/2018 None Full Exam - General 1994 Eyes conjunctiva/eyelids Overall: eyelids normal 08/30/2018 None Full Exam - General 1994 Eyes pupils and irises Overall: pupils equal, round, reactive to light and accomodation 08/30/2018 None Full Exam - General 1994 Ears/Nose/Throat lips/teeth/gingiva Overall: benign lips 08/30/2018 None Full Exam - General 1994 Ears/Nose/Throat oral cavity/pharynx/larynx Overall: oral mucosa clear 08/30/2018 None Full Exam - General 1994 Ears/Nose/Throat oral cavity/pharynx/larynx Overall: oropharyngeal mucosa clear 08/30/2018 None Full Exam - General 1994 Respiratory auscultation Overall: breath sounds clear bilaterally 08/30/2018 None Full Exam - General 1994 Respiratory respiratory effort/rhythm Overall: no retractions 08/30/2018 None Full Exam - General 1994 Respiratory respiratory effort/rhythm Overall: normal rate 08/30/2018 None Full Exam - General 1994 Cardiovascular auscultation of heart Rate: regular rate 08/30/2018 None Full Exam - General 1994 Cardiovascular auscultation of heart Rhythm: regular rhythm 08/30/2018 None Full Exam - General 1994 Abdomen abdominal exam Overall: normal bowel sounds 08/30/2018 None Full Exam - General 1994 Musculoskeletal gait and station Overall: normal gait 08/30/2018 None Full Exam - General 1994 Musculoskeletal gait and station Overall: normal station 08/30/2018 None Full Exam - General 1994 Musculoskeletal head and neck Overall: head atraumatic 08/30/2018 None Full Exam - General 1994 Neurologic cranial nerves Overall: crainial nerves 2 - 12 grossly intact 08/30/2018 None Full Exam - General 1994 Psychiatric orientation/consciousness Overall: oriented to person, place and time 08/30/2018 None Full Exam - General 1994 Psychiatric mood and affect Overall: normal mood and affect 08/30/2018 None Full Exam - General 1994 Psychiatric appearance Overall: well-groomed, good eye contact 08/30/2018 None Full Exam - General 1994 Constitutional general appearance Overall: well developed 04/30/2018 None Full Exam - General 1994 Constitutional general appearance Overall: in no acute distress 04/30/2018 None Full Exam - General 1994 Constitutional general appearance Overall: well nourished 04/30/2018 None Full Exam - General 1994 Eyes conjunctiva/eyelids Overall: conjunctiva clear 04/30/2018 None Full Exam - General 1994 Eyes conjunctiva/eyelids Overall: cornea clear 04/30/2018 None Full Exam - General 1994 Eyes conjunctiva/eyelids Overall: eyelids normal 04/30/2018 None Full Exam - General 1994 Eyes pupils and irises Overall: pupils equal, round, reactive to light and accomodation 04/30/2018 None Full Exam - General 1994 Ears/Nose/Throat lips/teeth/gingiva Overall: benign lips 04/30/2018 None Full Exam - General 1994 Ears/Nose/Throat oral cavity/pharynx/larynx Overall: oral mucosa clear 04/30/2018 None Full Exam - General 1994 Ears/Nose/Throat oral cavity/pharynx/larynx Overall: oropharyngeal mucosa clear 04/30/2018 None Full Exam - General 1994 Respiratory auscultation Overall: breath sounds clear bilaterally 04/30/2018 None Full Exam - General 1994 Respiratory respiratory effort/rhythm Overall: no retractions 04/30/2018 None Full Exam - General 1994 Respiratory respiratory effort/rhythm Overall: normal rate 04/30/2018 None Full Exam - General 1994 Cardiovascular auscultation of heart Rate: regular rate 04/30/2018 None Full Exam - General 1994 Cardiovascular auscultation of heart Rhythm: regular rhythm 04/30/2018 None Full Exam - General 1994 Abdomen abdominal exam Overall: normal bowel sounds 04/30/2018 None Full Exam - General 1994 Musculoskeletal head and neck Overall: head atraumatic 04/30/2018 None Full Exam - General 1994 Neurologic cranial nerves Overall: crainial nerves 2 - 12 grossly intact 04/30/2018 None Full Exam - General 1994 Psychiatric orientation/consciousness Overall: oriented to person, place and time 04/30/2018 None Full Exam - General 1994 Psychiatric mood and affect Overall: normal mood and affect 04/30/2018 None Full Exam - General 1994 Psychiatric appearance Overall: well-groomed, good eye contact 04/30/2018 None Full Exam - General 1994 Musculoskeletal gait and station Overall: normal gait 04/30/2018 None Full Exam - General 1994 Musculoskeletal gait and station Overall: normal station 04/30/2018 None Full Exam - General 1994 Constitutional general appearance Overall: well developed 10/30/2017 None Full Exam - General 1994 Constitutional general appearance Overall: in no acute distress 10/30/2017 None Full Exam - General 1994 Constitutional general appearance Overall: well nourished 10/30/2017 None Full Exam - General 1994 Eyes conjunctiva/eyelids Overall: conjunctiva clear 10/30/2017 None Full Exam - General 1994 Eyes conjunctiva/eyelids Overall: cornea clear 10/30/2017 None Full Exam - General 1994 Eyes conjunctiva/eyelids Overall: eyelids normal 10/30/2017 None Full Exam - General 1994 Eyes pupils and irises Overall: pupils equal, round, reactive to light and accomodation 10/30/2017 None Full Exam - General 1994 Ears/Nose/Throat lips/teeth/gingiva Overall: benign lips 10/30/2017 None Full Exam - General 1994 Ears/Nose/Throat oral cavity/pharynx/larynx Overall: oral mucosa clear 10/30/2017 None Full Exam - General 1994 Ears/Nose/Throat oral cavity/pharynx/larynx Overall: oropharyngeal mucosa clear 10/30/2017 None Full Exam - General 1994 Respiratory respiratory effort/rhythm Overall: no retractions 10/30/2017 None Full Exam - General 1994 Respiratory respiratory effort/rhythm Overall: normal rate 10/30/2017 None Full Exam - General 1994 Respiratory auscultation Overall: breath sounds clear bilaterally 10/30/2017 None Full Exam - General 1994 Cardiovascular auscultation of heart Rate: regular rate 10/30/2017 None Full Exam - General 1994 Cardiovascular auscultation of heart Rhythm: regular rhythm 10/30/2017 None Full Exam - General 1994 Abdomen abdominal exam Overall: normal bowel sounds 10/30/2017 None Full Exam - General 1994 Musculoskeletal head and neck Overall: head atraumatic 10/30/2017 None Full Exam - General 1994 Musculoskeletal spine, ribs and pelvis Spine: tender @ lumbar spine 10/30/2017 None Full Exam - General 1994 Neurologic cranial nerves Overall: crainial nerves 2 - 12 grossly intact 10/30/2017 None Full Exam - General 1994 Psychiatric orientation/consciousness Overall: oriented to person, place and time 10/30/2017 None Full Exam - General 1994 Psychiatric mood and affect Overall: normal mood and affect 10/30/2017 None Full Exam - General 1994 Psychiatric appearance Overall: well-groomed, good eye contact 10/30/2017 None Full Exam - Orthopedics Constitutional general appearance Overall: well nourished 09/13/2017 None Full Exam - Orthopedics Constitutional general appearance Overall: well developed 09/13/2017 None Full Exam - Orthopedics Constitutional general appearance Overall: in no acute distress 09/13/2017 None Full Exam - Orthopedics Eyes conjunctiva/eyelids Overall: conjunctiva clear 09/13/2017 None Full Exam - Orthopedics Eyes conjunctiva/eyelids Overall: eyelids normal 09/13/2017 None Full Exam - Orthopedics Ears/Nose/Throat lips/teeth/gingiva Overall: benign lips 09/13/2017 None Full Exam - Orthopedics Ears/Nose/Throat oral cavity/pharynx/larynx Overall: oral mucosa clear 09/13/2017 None Full Exam - Orthopedics Respiratory respiratory effort/rhythm Overall: no retractions 09/13/2017 None Full Exam - Orthopedics Respiratory respiratory effort/rhythm Overall: normal rate 09/13/2017 None Full Exam - Orthopedics Psychiatric orientation/consciousness Overall: oriented to person, place and time 09/13/2017 None Full Exam - Orthopedics Psychiatric mood and affect Overall: normal mood and affect 09/13/2017 None Full Exam - Orthopedics Psychiatric appearance Overall: well-groomed, good eye contact 09/13/2017 None Full Exam - Orthopedics MS: head/neck insp & palp - H/N Overall: head atraumatic 09/13/2017 None Full Exam - Orthopedics MS: spine/ri b/pelvis insp & palp - S/R/P Lumbar spine palpation : tender lumbar spinous processes 09/13/2017 None Full Exam - Orthopedics MS: spine/ri b/pelvis insp & palp - S/R/P Lumbar spine palpation : tender facet joints 09/13/2017 None Full Exam - Orthopedics MS: spine/ri b/pelvis insp & palp - S/R/P Thoracic/lumbar muscles palpation: tender left paralumbar 09/13/2017 None Full Exam - Orthopedics MS: spine/ri b/pelvis insp & palp - S/R/P Thoracic/lumbar muscles palpation: tender right paralumbar 09/13/2017 None Full Exam - Orthopedics Cardiovascular examination of vasculature Overall: no clubbing, cyanosis, edema 09/13/2017 None Full Exam - General 1994 Constitutional general appearance Overall: well developed 04/30/2017 None Full Exam - General 1994 Constitutional general appearance Overall: in no acute distress 04/30/2017 None Full Exam - General 1994 Constitutional general appearance Overall: well nourished 04/30/2017 None Full Exam - General 1994 Eyes conjunctiva/eyelids Overall: conjunctiva clear 04/30/2017 None Full Exam - General 1994 Eyes conjunctiva/eyelids Overall: eyelids normal 04/30/2017 None Full Exam - General 1994 Ears/Nose/Throat lips/teeth/gingiva Overall: benign lips 04/30/2017 None Full Exam - General 1994 Ears/Nose/Throat oral cavity/pharynx/larynx Overall: oral mucosa clear 04/30/2017 None Full Exam - General 1994 Respiratory auscultation Overall: breath sounds clear bilaterally 04/30/2017 None Full Exam - General 1994 Respiratory respiratory effort/rhythm Overall: no retractions 04/30/2017 None Full Exam - General 1994 Respiratory respiratory effort/rhythm Overall: normal rate 04/30/2017 None Full Exam - General 1994 Cardiovascular extremities Overall: no clubbing 04/30/2017 None Full Exam - General 1994 Cardiovascular auscultation of heart Overall: regular rate 04/30/2017 None Full Exam - General 1994 Cardiovascular auscultation of heart Overall: normal heart sounds 04/30/2017 None Full Exam - General 1994 Musculoskeletal head and neck Overall: head atraumatic 04/30/2017 None Full Exam - General 1994 Neurologic cranial nerves Overall: crainial nerves 2 - 12 grossly intact 04/30/2017 None Full Exam - General 1994 Psychiatric orientation/consciousness Overall: oriented to person, place and time 04/30/2017 None Full Exam - General 1994 Psychiatric mood and affect Overall: normal mood and affect 04/30/2017 None Full Exam - General 1994 Psychiatric appearance Overall: well-groomed, good eye contact 04/30/2017 None Full Exam - General 1994 Musculoskeletal gait and station Overall: normal gait 04/30/2017 None Full Exam - General 1994 Musculoskeletal gait and station Overall: normal station 04/30/2017 None Full Exam - General 1994 Constitutional general appearance Overall: well developed 10/30/2016 None Full Exam - General 1994 Constitutional general appearance Overall: in no acute distress 10/30/2016 None Full Exam - General 1994 Constitutional general appearance Overall: well nourished 10/30/2016 None Full Exam - General 1994 Eyes conjunctiva/eyelids Overall: conjunctiva clear 10/30/2016 None Full Exam - General 1994 Eyes conjunctiva/eyelids Overall: eyelids normal 10/30/2016 None Full Exam - General 1994 Ears/Nose/Throat lips/teeth/gingiva Overall: benign lips 10/30/2016 None Full Exam - General 1994 Ears/Nose/Throat oral cavity/pharynx/larynx Overall: oral mucosa clear 10/30/2016 None Full Exam - General 1994 Respiratory auscultation Overall: breath sounds clear bilaterally 10/30/2016 None Full Exam - General 1994 Respiratory respiratory effort/rhythm Overall: no retractions 10/30/2016 None Full Exam - General 1994 Respiratory respiratory effort/rhythm Overall: normal rate 10/30/2016 None Full Exam - General 1994 Cardiovascular extremities Overall: no clubbing 10/30/2016 None Full Exam - General 1994 Cardiovascular auscultation of heart Overall: regular rate 10/30/2016 None Full Exam - General 1994 Cardiovascular auscultation of heart Overall: normal heart sounds 10/30/2016 None Full Exam - General 1994 Musculoskeletal head and neck Overall: head atraumatic 10/30/2016 None Full Exam - General 1994 Integument inspection of skin Overall: few scattered moles, no gross abnormalities 10/30/2016 None Full Exam - General 1994 Neurologic cranial nerves Overall: crainial nerves 2 - 12 grossly intact 10/30/2016 None Full Exam - General 1994 Psychiatric orientation/consciousness Overall: oriented to person, place and time 10/30/2016 None Full Exam - General 1994 Psychiatric mood and affect Overall: normal mood and affect 10/30/2016 None Full Exam - General 1994 Psychiatric appearance Overall: well-groomed, good eye contact 10/30/2016 None Full Exam - General 1994 Constitutional general appearance Overall: well developed 07/31/2016 None Full Exam - General 1994 Constitutional general appearance Overall: in no acute distress 07/31/2016 None Full Exam - General 1994 Constitutional general appearance Overall: well nourished 07/31/2016 None Full Exam - General 1994 Eyes conjunctiva/eyelids Overall: conjunctiva clear 07/31/2016 None Full Exam - General 1994 Eyes conjunctiva/eyelids Overall: eyelids normal 07/31/2016 None Full Exam - General 1994 Eyes pupils and irises Overall: pupils equal, round, reactive to light and accomodation 07/31/2016 None Full Exam - General 1994 Ears/Nose/Throat otoscopic exam Overall: external auditory canals clear 07/31/2016 None Full Exam - General 1994 Ears/Nose/Throat otoscopic exam Overall: tympanic membranes clear 07/31/2016 None Full Exam - General 1994 Ears/Nose/Throat lips/teeth/gingiva Overall: benign lips 07/31/2016 None Full Exam - General 1994 Ears/Nose/Throat oral cavity/pharynx/larynx Overall: oral mucosa clear 07/31/2016 None Full Exam - General 1994 Respiratory auscultation Overall: breath sounds clear bilaterally 07/31/2016 None Full Exam - General 1994 Respiratory respiratory effort/rhythm Overall: no retractions 07/31/2016 None Full Exam - General 1994 Respiratory respiratory effort/rhythm Overall: normal rate 07/31/2016 None Full Exam - General 1994 Cardiovascular extremities Overall: no clubbing 07/31/2016 None Full Exam - General 1994 Cardiovascular auscultation of heart Overall: regular rate 07/31/2016 None Full Exam - General 1994 Cardiovascular auscultation of heart Overall: normal heart sounds 07/31/2016 None Full Exam - General 1994 Abdomen abdominal exam Overall: no tenderness 07/31/2016 None Full Exam - General 1994 Abdomen abdominal exam Overall: normal bowel sounds 07/31/2016 None Full Exam - General 1994 Musculoskeletal head and neck Overall: head atraumatic 07/31/2016 None Full Exam - General 1994 Integument inspection of skin Overall: few scattered moles, no gross abnormalities 07/31/2016 None Full Exam - General 1994 Psychiatric orientation/consciousness Overall: oriented to person, place and time 07/31/2016 None Full Exam - General 1994 Psychiatric mood and affect Overall: normal mood and affect 07/31/2016 None Full Exam - General 1994 Psychiatric appearance Overall: well-groomed, good eye contact 07/31/2016 None Full Exam - General 1994 Neurologic cranial nerves Overall: crainial nerves 2 - 12 grossly intact 07/31/2016 None Procedures Procedure Codes Date FLU VAC NO PRSV 4 VA L 3 YRS+ CPT-4: 30457 06/21/2017 ADMIN INFLUENZA VIRU S VAC CPT-4: G0008 06/21/2017 Vital Signs Date Vital 02/27/2019 Blood Pressure 1: 138/66 Code: 8480-6 BMI: 31.9 Code: 02271-8 Heart Rate 1: 65 bpm Height: 5'8" SpO2: 99% Weight: 210 lbs 08/30/2018 Blood Pressure 1: 124/70 Code: 8480-6 BMI: 31.6 Code: 33983-9 Heart Rate 1: 64 bpm Height: 5'8" SpO2: 98% Weight: 208 lbs 04/30/2018 Blood Pressure 1: 126/78 Code: 8480-6 BMI: 32.5 Code: 61027-9 Heart Rate 1: 65 bpm Height: 5'8" SpO2: 94% Weight: 214 lbs 10/30/2017 Blood Pressure 1: 142/84 Code: 8480-6 BMI: 32.8 Code: 61791-5 Heart Rate 1: 70 bpm Height: 5'8" SpO2: 96% Weight: 216 lbs 09/13/2017 Blood Pressure 1: 136/82 Code: 8480-6 BMI: 33.0 Code: 31926-2 Heart Rate 1: 80 bpm Height: 5'8" SpO2: 97% Weight: 217 lbs 04/30/2017 Blood Pressure 1: 120/70 Code: 8480-6 BMI: 32.2 Code: 45105-5 Heart Rate 1: 60 bpm Height: 5'8" SpO2: 98% Weight: 212 lbs 10/30/2016 Blood Pressure 1: 120/66 Code: 8480-6 BMI: 31.8 Code: 32106-5 Heart Rate 1: 58 bpm Height: 5'8" SpO2: 98% Weight: 209 lbs 07/31/2016 Blood Pressure 1: 140/66 Code: 8480-6 BMI: 31.6 Code: 33108-0 Heart Rate 1: 63 bpm Height: 5'8" SpO2: 95% Weight: 208 lbs Functional Status No Functional Status data History of Present Illness Symptom Name Status Resu lt Effective Date Notes Onset of Symptom durin g adulthood 02/27/2019 None Quality non-insulin de pendent 02/27/2019 None Nutrition regular diet 02/27/2019 None Onset of Symptom onset as an adult 02/27/2019 None Onset and Resolution o ngoing 02/27/2019 None Onset of Symptom durin g adulthood 08/30/2018 None Quality non-insulin de pendent 08/30/2018 None Nutrition regular diet 08/30/2018 None Onset of Symptom onset as an adult 08/30/2018 None hypertension Onset of Symptom during adulthood 04/30/2018 None diabetes mellitus Quality non-insulin dependent 04/30/2018 None diabetes mellitus Nutrition regular diet 04/30/2018 None diabetes mellitus Onset of Symptom onset as an adult 04/30/2018 None back pain Location lumba r-sacral spine 04/30/2018 None back pain Pertinent Findings Denies fever 04/30/2018 None hypertension Onset of Symptom during adulthood 10/30/2017 None diabetes mellitus Quality non-insulin dependent 10/30/2017 None diabetes mellitus Nutrition regular diet 10/30/2017 None diabetes mellitus Onset of Symptom onset as an adult 10/30/2017 None back pain Location lumba r-sacral spine 10/30/2017 None back pain Pertinent Findings Denies fever 10/30/2017 None low back pain Location o n both sides 09/13/2017 None low back pain Quality ac [place] 09/13/2017 None low back pain Onset and Resolution sudden in onset 09/13/2017 None low back pain Onset of Symptom 1 weeks ago 09/13/2017 None low back pain Limitation on Activities allows weight bearing activity 09/13/2017 None low back pain Limitation on Activities moderately limits activities 09/13/2017 None low back pain Limitation on Activities is incapacitating 09/13/2017 None low back pain Quality in termittent 09/13/2017 None low back pain Frequency of Episodes daily 09/13/2017 None low back pain Exacerbating Factors changing position 09/13/2017 from prone to sitting or standing hypertension Onset of Symptom during adulthood 04/30/2017 None diabetes mellitus Quality non-insulin dependent 04/30/2017 None diabetes mellitus Nutrition regular diet 04/30/2017 None diabetes mellitus Onset of Symptom onset as an adult 04/30/2017 None hypertension Onset of Symptom during adulthood 10/30/2016 None diabetes mellitus Quality non-insulin dependent 10/30/2016 None diabetes mellitus Nutrition regular diet 10/30/2016 None diabetes mellitus Onset of Symptom onset as an adult 10/30/2016 None hypertension Onset of Symptom during adulthood 07/31/2016 None diabetes mellitus Quality non-insulin dependent 07/31/2016 None diabetes mellitus Test results Pt checking blood glucose at home, see scanned readings 07/31/2016 None diabetes mellitus Blood glucose levels between 60 and 120 07/31/2016 None diabetes mellitus Glucose monitoring daily 07/31/2016 None diabetes mellitus Glucose monitoring fasting 07/31/2016 None diabetes mellitus Nutrition regular diet 07/31/2016 None diabetes mellitus Exercise moderate exercise 07/31/2016 None diabetes mellitus Onset of Symptom onset as an adult 07/31/2016 None Advance Directives No Advance Directive data Encounters Encounter Performer Loca tion Codes Date [id number] EST. PATIENT, LEVEL III Diagnosis: Type 2 diabetes mellitus without complications[ICD10: E11.9] Diagnosis: Essential (primary) hypertension[ICD10: I10] Roberta Chiang MD, [facility] CPT-4: 08473 02/27/2019 64439 EST. PATIENT, LEVEL III Diagnosis: Type 2 diabetes mellitus without complications[ICD10: E11.9] Diagnosis: Essential (primary) hypertension[ICD10: I10] Roberta Chiang MD, [facility] CPT-4: 43324 08/30/2018 [id number] EST. PATIENT, LEVEL IV Diagnosis: Type 2 diabetes mellitus without complications[ICD10: E11.9] Diagnosis: Essential (primary) hypertension[ICD10: I10] Diagnosis: Age-related osteoporosis without current pathological fracture[ICD10: M81.0] Roberta Chiang MD, [facility] CPT-4: 58146 04/30/2018 11365 EST. PATIENT, LEVEL IV Diagnosis: Type 2 diabetes mellitus without complications[ICD10: E11.9] Diagnosis: Essential (primary) hypertension[ICD10: I10] Diagnosis: Vitamin D deficiency, unspecified[ICD10: E55.9] Diagnosis: Low back pain[ICD10: M54.5] Roberta Chiang MD, [facility] CPT-4: 66357 10/30/2017 43744 EST. PATIENT, LEVEL III Diagnosis: Low back pain[ICD10: M54.5] Roberta Chiang MD, [facility] CPT-4: 77681 09/13/2017 42516 EST. PATIENT, LEVEL III Diagnosis: Type 2 diabetes mellitus without complications[ICD10: E11.9] Diagnosis: Essential (primary) hypertension[ICD10: I10] Roberta Chiang MD, [facility] CPT-4: 58870 04/30/2017 [id number] EST. PATIENT, LEVEL III Diagnosis: Type 2 diabetes mellitus without complications[ICD10: E11.9] Diagnosis: Essential (primary) hypertension[ICD10: I10] [facility] CPT-4: 47255 10/30/2016 ([id number]) OFFICE [facility] - LEVEL 4 Diagnosis: Essential (primary) hypertension[ICD10: I10] Diagnosis: Type 2 diabetes mellitus without complications[ICD10: E11.9] [facility] CPT-4: 95387 07/31/2016 Plan of Care Planned Activity Notes C odes Status Date Visit Plan: Diabetes Mellitus - Unc ontrolled - per recent FSBS reports. I have recommended for the patient to have follow up labs prior to the next office visit. The patient has been instructed to continue with current medications as previously directed, continue with regular FSBS monitoring to assure continued control of diabetes. Pt to call for any acute concerns, complaints, or if the blood glucose readings are starting to become less controlled. I have recommended for the patient to follow more strictly to the diabetic diet as discussed in clinic to allow for greater blood glucose control. Hypertension - well controlled - continue with current medications, continue with no added salt diet. Pt has been encouraged to exercise daily. The pt has been advised to call the office if there are any acute concerns about change in blood pressure readings at home. 02/27/2019 Appointment: Roberta Mahmood WPtel: [facility] [id number] (15 min) Moderate 02/27/2019 Patient Education: Patient Medication Summary Completed 02/27/2019 Patient Education: Patient Medication Summary Completed 02/20/2019 Visit Plan: Hypertension - well con trolled - continue with current medications, continue with no added salt diet. Pt has been encouraged to exercise daily. The pt has been advised to call the office if there are any acute concerns about change in blood pressure readings at home. Diabetes Mellitus - controlled - per recent FSBS reports. I have recommended for the patient to have follow up labs prior to the next office visit. The patient has been instructed to continue with current medications as previously directed, continue with regular FSBS monitoring to assure continued control of diabetes. Pt to call for any acute concerns, complaints, or if the blood glucose readings are starting to become less controlled. 08/30/2018 Appointment: [facility] [address] [facility] (15 min) Moderate 08/30/2018 Patient Education: Patient Medication Summary Completed 08/30/2018 Patient Education: Obesity Completed 08/30/2018 Visit Plan: Hypertension - well con leydied - continue with current medications, continue with no added salt diet. Pt has been encouraged to exercise daily. The pt has been advised to call the office if there are any acute concerns about change in blood pressure readings at home. Diabetes Mellitus - I have recommended for the patient to have follow up labs prior to the next office visit. The patient has been instructed to continue with current medications as previously directed, continue with regular FSBS monitoring to assure continued control of diabetes. Pt to call for any acute concerns, complaints, or if the blood glucose readings are starting to become less controlled. I have recommended for the patient to follow more strictly to the diabetic diet as discussed in clinic to allow for greater blood glucose control. Osteoporosis - pt is to continue to follow with ortho as indicated - pt is to consider starting Prolia injections. 04/30/2018 Appointment: [facility] Mah[facility]ood [facility]el[facility] [address] [facility] (15 min) Moderate 04/30/2018 Patient Education: Patient Medication Summary Completed 04/30/2018 Patient Education: Patient Medication Summary Completed 01/31/2018 Visit Plan: Hypertension - uncontro lled - the patient's medications have been modified as documented in the visit note. The patient has been counseled to cut back on salt in diet for a no added salt diet, low fat d iet, start an exercise program with low weight bearing exercises and higher aerobic activity for heart health. The patient is to check blood pressure readings as an outpatient and either fax, call, or email the readings to the office next week for practitioner to review. The pt is to call for acute concerns. Diabetes Mellitus - Uncontrolled - per recent FSBS reports. I have recommended for the patient to have follow up labs prior to the next office visit. The patient has been instructed to continue with current medications as previously directed, continue with regular FSBS monitoring to assure continued control of diabetes. Pt to call for any acute concerns, complaints, or if the blood glucose readings are starting to become less controlled. I have recommended for the patient to follow more strictly to the diabetic diet as discussed in clinic to allow for greater blood glucose control. Low back pain- pt is to notify clinic when back surgery is scheduled - the patient was instructed in appropriate posture, need for weight loss to alleviate abdominal obesity that is worsening the patient's back pain.. The pt is to use prn antiinflammatories to manage acute pain. The patient is to call the office if the pain is worsening or does not improve. 10/30/2017 Appointment: Rober[facility] Mahmood [facility]Ptel: [phone] [facility] [place] (30 min) Complex 10/30/2017 Patient Education: Patient Medication Summary Completed 10/30/2017 Visit Plan: Low back pain- the tabby ent was instructed in appropriate posture, need for weight loss to alleviate abdominal obesity that is worsening the patient's back pain.. The pt is to use prn antiinflammatories to manage acute pain. The patient is to call the office if the pain is worsening or does not improve. 09/13/2017 Appointment: [facility] Mah[facility]ood [facility]Ptel: [address] [facility] [place] (15 min) Moderate 09/13/2017 Patient Education: Patient Medication Summary Completed 09/13/2017 Appointment: Injection 06/21/2017 Patient Education: Patient Medication Summary Completed 06/21/2017 Visit Plan: Diabetes Mellitus - con leydied - per recent FSBS reports. I have recommended for the patient to have follow up labs prior to the next office visit. The patient has been instructed to continue with current medications as previously directed, continue with regular FSBS monitoring to assure continued control of diabetes. Pt to call for any acute concerns, complaints, or if the blood glucose readings are starting to become less controlled. Hypertension - well controlled - continue with current medications, continue with no added salt diet. Pt has been encouraged to exercise daily. The pt has been advised to call the office if there are any acute concerns about change in blood pressure readings at home. 04/30/2017 Appointment: Rober[facility] Mah[facility]ood [facility]Ptel: [address] [facility] [place] (30 min) Complex 04/30/2017 Patient Education: Patient Medication Summary Completed 04/30/2017 Patient Education: Obesity Completed 04/30/2017 Patient Education: Hypertension Completed 04/30/2017 Visit Plan: Hypertension - well con trolled - continue with current medications, continue with no added salt diet. Pt has been encouraged to exercise daily. The pt has been advised to call the office if there are any acute concerns about change in blood pressure readings at home. Diabetes Mellitus - controlled - per recent FSBS reports. I have recommended for the patient to have follow up labs prior to the next office visit. The patient has been instructed to continue with current medications as previously directed, continue with regular FSBS monitoring to assure continued control of diabetes. Pt to call for any acute concerns, complaints, or if the blood glucose readings are starting to become less controlled. 10/30/2016 Appointment: Roberta Mahmood WPtel: [address] [facility] (30 min) Complex 10/30/2016 Patient Education: Patient Medication Summary Completed 10/30/2016 Patient Education: Obesity Completed 10/30/2016 Patient Education: Hypertension Completed 10/30/2016 Visit Plan: Hypertension - continue with current medications, continue with no added salt diet. Pt has been encouraged to exercise daily. The pt has been advised to call the office if there are any acute concerns about change in blood pressure readings at home. Diabetes Mellitus - I have recommended for the patient to have follow up labs prior to the next office visit. The patient has been instructed to continue with current medications as previously directed, continue with regular FSBS monitoring to assure continued control of diabetes. Pt to call for any acute concerns, complaints, or if the blood glucose readings are starting to become less controlled. 07/31/2016 Appointment: Roberta Mahmood WPtel: [facility] [place] New Patient 07/31/2016 Patient Education: Patient Medication Summary Completed 07/31/2016 Appointment: Mamta Medrano WPtel: [phone] [id number] New Patient 07/25/2016 Instructions Comment . Hypertension - wel l controlled - continue with current medications, continue with no added salt diet. Pt has been encouraged to exercise daily. The pt has been advised to call the office if there are any acute concerns about change in blood pressure readings at home. Diabetes Mellitus - controlled - per recent FSBS reports. I have recommended for the patient to have follow up labs prior to the next office visit. The patient has been instructed to continue with current medications as previously directed, continue with regular FSBS monitoring to assure continued control of diabetes. Pt to call for any acute concerns, complaints, or if the blood glucose readings are starting to become less controlled. . Low back pain- the patient was instructed in appropriate posture, need for weight loss to alleviate abdominal obesity that is worsening the patient's back pain.. The pt is to use prn antiinflammatories to manage acute pain. The patient is to call the office if the pain is worsening or does not improve. . Diabetes Mellitus - Uncontrolled - per recent FSBS reports. I have recommended for the patient to have follow up labs prior to the next office visit. The patient has been instructed to continue with current medications as previously directed, continue with regular FSBS monitoring to assure continued control of diabetes. Pt to call for any acute concerns, complaints, or if the blood glucose readings are starting to become less controlled. I have recommended for the patient to follow more strictly to the diabetic diet as discussed in clinic to allow for greater blood glucose control. Hypertension - well controlled - continue with current medications, continue with no added salt diet. Pt has been encouraged to exercise daily. The pt has been advised to call the office if there are any acute concerns about change in blood pressure readings at home. . Hypertension - unc ontrolled - the patient's medications have been modified as documented in the visit note. The patient has been counseled to cut back on salt in diet for a no added salt diet, low fat diet, start an exercise program with low weight bearing exercises and higher aerobic activity for heart health. The patient is to check blood pressure readings as an outpatient and either fax, call, or email the readings to the office next week for practitioner to review. The pt is to call for acute concerns. Diabetes Mellitus - Uncontrolled - per recent FSBS reports. I have recommended for the patient to have follow up labs prior to the next office visit. The patient has been instructed to continue with current medications as previously directed, continue with regular FSBS monitoring to assure continued control of diabetes. Pt to call for any acute concerns, complaints, or if the blood glucose readings are starting to become less controlled. I have recommended for the patient to follow more strictly to the diabetic diet as discussed in clinic to allow for greater blood glucose control. Low back pain- pt is to notify clinic when back surgery is scheduled - the patient was instructed in appropriate posture, need for weight loss to alleviate abdominal obesity that is worsening the patient's back pain.. The pt is to use prn antiinflammatories to manage acute pain. The patient is to call the office if the pain is worsening or does not improve. . Hypertension - co ntinue with current medications, continue with no added salt diet. Pt has been encouraged to exercise daily. The pt has been advised to call the office if there are any acute concerns about change in blood pressure readings at home. Diabetes Mellitus - I have recommended for the patient to have follow up labs prior to the next office visit. The patient has been instructed to continue with current medications as previously directed, continue with regular FSBS monitoring to assure continued control of diabetes. Pt to call for any acute concerns, complaints, or if the blood glucose readings are starting to become less controlled. . Diabetes Mellitus - controlled - per recent FSBS reports. I have recommended for the patient to have follow up labs prior to the next office visit. The patient has been instructed to continue with current medications as previously directed, continue with regular FSBS monitoring to assure continued control of diabetes. Pt to call for any acute concerns, complaints, or if the blood glucose readings are starting to become less controlled. Hypertension - well controlled - continue with current medications, continue with no added salt diet. Pt has been encouraged to exercise daily. The pt has been advised to call the office if there are any acute concerns about change in blood pressure readings at home. . Hypertension - wel l controlled - continue with current medications, continue with no added salt diet. Pt has been encouraged to exercise daily. The pt has been advised to call the office if there are any acute concerns about change in blood pressure readings at home. Diabetes Mellitus - I have recommended for the patient to have follow up labs prior to the next office visit. The patient has been instructed to continue with current medications as previously directed, continue with regular FSBS monitoring to assure continued control of diabetes. Pt to call for any acute concerns, complaints, or if the blood glucose readings are starting to become less controlled. I have recommended for the patient to follow more strictly to the diabetic diet as discussed in clinic to allow for greater blood glucose control. Osteoporosis - pt is to continue to follow with ortho as indicated - pt is to consider starting Prolia injections. decrease metoprolol to 25mg twice a day - keep monitoring blood pressures and heart rates let me know if they become uncontrolled. . Hypertension - well controlled - continue with current medications, continue with no added salt diet. Pt has been encouraged to exercise daily. The pt has been advised to call the office if there are any acute concerns about change in blood pressure readings at home. Diabetes Mellitus - controlled - per recent FSBS reports. I have recommended for the patient to have follow up labs prior to the next office visit. The patient has been instructed to continue with current medications as previously directed, continue with regular FSBS monitoring to assure continued control of diabetes. Pt to call for any acute concerns, complaints, or if the blood glucose readings are starting to become less controlled.
--- OUTSIDE RECORDS SUMMARY | 2019-08-28 11:56 | XMS REPORT | CCD ---
Author Ace Koch Organization Bianca Chiang MD, [facility] Address [address] [place] [address] Phone Care Team Providers Care Cafeteria Counter Attendant Name Role Phone PP Unavailable CCM Unavailable Summary Purpose Interface Exchange Insurance Providers Payer name Policy type / Coverage type Covered republican ID Effective Begin Date Effective End Date WPS Medicare Part B Medicare Part B [id number] 2018 Unknown [facility] Part B [id number] Un known Family history Father Diagnosis Age [...] RxNorm: 7052 07/31/2016 No Inactive Date Active ULYXSTB-QNV-RGI REDU CTASE INHIBITORS Unknown 07/31/2016 No Inactive [...] Vitamin D2 50,000 un it capsule RxNorm: 694242 1 Capsule(s) PO QW ta ke with daily vitamin d3 2000 units 11/13/2017 02/10/2018 Inactive Vitamin D2 50,000 un it capsule RxNorm: 866805 1 Capsule(s) PO QW ta ke with daily vitamin d3 2000 units 11/13/2017 11/12/2017 Inactive metoprolol tartrate 50 mg tablet RxNorm: 945103 Tablet(s) PO TAKE ONE TABLET BY MOUTH TWICE A DAY 10/30/2017 04/27/2018 Inactive prednisone 20 mg tablet RxNorm: 662156 2 Tablet(s) PO daily 09/18/2017 09/17/2017 Inactive prednisone 20 mg tablet RxNorm: 644971 2 Tablet(s) PO daily 09/18/2017 09/22/2017 Inactive cyclobenzaprine 5 mg tablet RxNorm: 088106 1 Tablet(s) PO TID as needed muscle spasms 09/13/2017 09/17/2017 Inactive metoprolol tartrate 25 mg tablet RxNorm: 490090 TAKE ONE TABLET BY [facility] TWICE A DAY 08/03/2017 10/29/2017 Inactive metoprolol tartrate 25 mg tablet RxNorm: 644900 1 Tablet(s) PO BID 05/02/2017 07/30/2017 Inactive aspirin 81 mg chewab le tablet RxNorm: 241400 2 Tablet(s) PO daily 04/30/2017 05/29/2017 Inactive metoprolol tartrate 50 mg tablet RxNorm: 326545 1/2 Tablet(s) PO BID No Start Date Active Vitamin D3 2,000 uni t capsule RxNorm: 210202 1 Capsule(s) PO daily No Start Date Active calcium 600 mg capsule RxNorm: 1 Capsule(s) PO daily No Start Date Active Prevacid 15 mg capsu le,delayed release RxNorm: 752534 1 Capsule(s) PO daily No Start Date Active tramadol 50 mg tablet RxNorm: 255200 1 -2 Tablet(s) PO Q4H as needed No Start Date Active ramipril 2.5 mg tablet RxNorm: 225886 1 Tablet(s) PO daily No Start Date 07/31/2016 Inactive aspirin 325 mg tablet RxNorm: 072443 1 Tablet(s) PO daily No Start Date 04/27/2017 Inactive metoprolol tartrate 25 mg tablet RxNorm: 153629 1 Tablet(s) PO BID No Start Date [...] Lipid Ord30 C/HDL 4.2 Ratio 02/25/2019 %Hba1C Awo371 % HbA1c 57982-9 6.1 % 02/25/2019 %Hba1C Yeb512 Gluc Ave 128 mg/dL 02/25/2019 Cbc With [...] 32.3 pg 02/25/2019 Cbc With Differential Ord2 Greenlee% 13.2 % 02/25/2019 Cbc With Differential Ord2 [...] 1.78 K/ul 02/25/2019 Cbc With Differential Ord2 Greenlee ABS# 0.7 K/ul 02/25/2019 Cbc With Differential Ord2 Eos ABS# 0.2 K/ul 02/25/2019 Cbc With Differential Ord2 Baso ABS# 0.0 K/ul 02/25/2019 Tsh Ord6 TSH (3rd IS) 1.30 uIU/mL 02/25/2019 Comp Metabolic Kyb190 NA 138 mEq/L 02/25/2019 Comp Metabolic Ynr848 K 4.0 mEq/L 02/25/2019 Comp Metabolic Hsx732 CL 104 mEq/L 02/25/2019 Comp Metabolic Ujs116 CO2 27.0 mEq/L 02/25/2019 Comp Metabolic Dso072 AN ION GAP 11 02/25/2019 Comp Metabolic Wmi140 GL UCOSE 97 mg/dL 02/25/2019 Comp Metabolic Zui759 Cr eat 1.6 mg/dL 02/25/2019 Comp Metabolic Kxh582 eG FR 45 ml/min/1.73m2 02/25 Comp Metabolic Jpz596 BUN 21 mg/dL 02/25/2019 Comp Metabolic Moz470 B/ C Ratio 13.0 Ratio 02/25/2019 Comp Metabolic Mug889 CA LCIUM 9.8 mg/dL 02/25/2019 Comp Metabolic Kdd870 AL K PHOS 58 U/L 02/25/2019 Comp Metabolic Zyl767 T(SGOT) 15 U/L 02/25/2019 Comp Metabolic Wcy422 AL T(SGPT) 12 U/L 02/25/2019 Comp Metabolic Czd945 BI LI T 0.6 mg/dL 02/25/2019 Comp Metabolic Xwh701 AL BUMIN 3.7 g/dL 02/25/2019 Comp Metabolic Sco771 TP RO 7.0 g/dL 02/25/2019 Comp Metabolic Zna543 GL OB 3.3 g/dL 02/25/2019 Comp Metabolic Xmv295 A/ G Ratio 1.1 Ratio 02/25/2019 Comp Metabolic Abc695 Os mo 279 mOsmo 02/25/2019 B12 Rzk004 B12 781.00 pg/ml 02/06/2018 Folate Ord36 Folate 14.87 ng/mL 02/06/2018 Parathyroid Hormone Fez479 PTH 39.10 pg/ml 01/21/2018 Vitamin D 25 Oh Ivt9231 VITAMIN D, 25 HYDROXY 40.13 ng/mL 01/21/2018 [...] 32.3 pg 01/21/2018 Cbc With Differential Ord2 Greenlee% 13.0 % 01/21/2018 Cbc With Differential Ord2 [...] 1.51 K/ul 01/21/2018 Cbc With Differential Ord2 Greenlee ABS# 0.7 K/ul 01/21/2018 Cbc With Differential Ord2 Eos ABS# 0.2 K/ul 01/21/2018 Cbc With Differential Ord2 Baso ABS# 0.0 K/ul 01/21/2018 %Hba1C Vwb255 % HbA1c 67678-4 5.9 % 01/21/2018 %Hba1C Gjg034 Gluc Ave 123 mg/dL 01/21/2018 Tsh Ord6 TSH (3rd IS) 1.96 uIU/mL 01/21/2018 Comp Metabolic Esg046 NA 139 mEq/L 01/21/2018 Comp Metabolic Amr105 K 4.2 mEq/L 01/21/2018 Comp Metabolic Syx970 CL 106 mEq/L 01/21/2018 Comp Metabolic Uao236 CO2 26.0 mEq/L 01/21/2018 Comp Metabolic Izv741 AN ION GAP 11 01/21/2018 Comp Metabolic Tex274 GL UCOSE 102 mg/dL 01/21/2018 Comp Metabolic Qls052 Cr eat 1.6 mg/dL 01/21/2018 Comp Metabolic Ymr210 eG FR 47 ml/min/1.73m2 01/21 Comp Metabolic Ykc416 BUN 23 mg/dL 01/21/2018 Comp Metabolic Cvb070 B/ C Ratio 14.6 Ratio 01/21/2018 Comp Metabolic Zvs272 CA LCIUM 9.6 mg/dL 01/21/2018 Comp Metabolic Upk454 AL K PHOS 61 U/L 01/21/2018 Comp Metabolic Yxs948 T(SGOT) 15 U/L 01/21/2018 Comp Metabolic Zmw032 AL T(SGPT) 10 U/L 01/21/2018 Comp Metabolic Wxv161 BI LI T 0.5 mg/dL 01/21/2018 Comp Metabolic Lei661 AL BUMIN 3.6 g/dL 01/21/2018 Comp Metabolic Uuj359 TP RO 6.7 g/dL 01/21/2018 Comp Metabolic Wsx187 GL OB 3.1 g/dL 01/21/2018 Comp Metabolic Ibr058 A/ G Ratio 1.2 Ratio 01/21/2018 Comp Metabolic Bhl562 Os mo 281 mOsmo 01/21/2018 Comp Metabolic Fcg357 NA 140 mEq/L 10/30/2017 Comp Metabolic Efo307 K 4.6 mEq/L 10/30/2017 Comp Metabolic Szn241 CL 106 mEq/L 10/30/2017 Comp Metabolic Sch509 CO2 24.0 mEq/L 10/30/2017 Comp Metabolic Jvs342 AN ION GAP 15 10/30/2017 Comp Metabolic Lly851 GL UCOSE 126 mg/dL 10/30/2017 Comp Metabolic Qxz836 Cr eat 1.4 mg/dL 10/30/2017 Comp Metabolic Tle699 eG FR 53 ml/min/1.73m2 10/30 Comp Metabolic Rcn809 BUN 22 mg/dL 10/30/2017 Comp Metabolic Mhq140 B/ C Ratio 15.6 Ratio 10/30/2017 Comp Metabolic Hzt508 CA LCIUM 9.7 mg/dL 10/30/2017 Comp Metabolic Srv869 AL K PHOS 70 U/L 10/30/2017 Comp Metabolic Zcd719 T(SGOT) 18 U/L 10/30/2017 Comp Metabolic Pbd484 AL T(SGPT) 16 U/L 10/30/2017 Comp Metabolic Qpq734 BI LI T 0.4 mg/dL 10/30/2017 Comp Metabolic Uso336 AL BUMIN 3.6 g/dL 10/30/2017 Comp Metabolic Abv687 TP RO 6.6 g/dL 10/30/2017 Comp Metabolic Wyo255 GL OB 3.0 g/dL 10/30/2017 Comp Metabolic Mla110 A/ G Ratio 1.2 Ratio 10/30/2017 Comp Metabolic Huc104 Os mo 284 mOsmo 10/30/2017 Cbc With [...] 33.4 pg 10/30/2017 Cbc With Differential Ord2 Greenlee% 15.5 % 10/30/2017 Cbc With Differential Ord2 [...] 1.43 K/ul 10/30/2017 Cbc With Differential Ord2 Greenlee ABS# 0.9 K/ul 10/30/2017 Cbc With Differential Ord2 Eos ABS# 0.2 K/ul 10/30/2017 Cbc With Differential Ord2 Baso ABS# 0.0 K/ul 10/30/2017 Vitamin D 25 Oh Fwq9348 VITAMIN D, 25 HYDROXY 22.30 ng/mL 10/30/2017 %Hba1C Jrr019 % HbA1c 53886-6 6.9 % 10/30/2017 %Hba1C Qot923 Gluc Ave 151 mg/dL 10/30/2017 Cbc With [...] 32.6 pg 04/25/2017 Cbc With Differential Ord2 Greenlee% 12.8 % 04/25/2017 Cbc With Differential Ord2 [...] 1.61 K/ul 04/25/2017 Cbc With Differential Ord2 Greenlee ABS# 0.7 K/ul 04/25/2017 Cbc With Differential Ord2 Eos ABS# 0.2 K/ul 04/25/2017 Cbc With Differential Ord2 Baso ABS# 0.0 K/ul 04/25/2017 %Hba1C Szz335 % HbA1c 98367-1 6.1 % 04/25/2017 %Hba1C Otp150 Gluc Ave 128 mg/dL 04/25/2017 Tsh Ord6 hTSH II 1.39 uIU/mL 04/25/2017 Lipid Ord30 CHOL 126 mg/dL 04/25/2017 Lipid Ord30 HDL 37.0 mg/dl 04/25/2017 Lipid Ord30 TRIG 77 mg/dL 04/25/2017 Lipid Ord30 LDL 74 mg/dL 04/25/2017 Lipid Ord30 C/HDL 3.4 Ratio 04/25/2017 Comp Metabolic Pgr432 NA 139 mEq/L 04/25/2017 Comp Metabolic Myh415 K 4.2 mEq/L 04/25/2017 Comp Metabolic Gcq507 CL 106 mEq/L 04/25/2017 Comp Metabolic Moj577 CO2 24.0 mEq/L 04/25/2017 Comp Metabolic Rbx336 AN ION GAP 13 04/25/2017 Comp Metabolic Sba470 GL UCOSE 105 mg/dL 04/25/2017 Comp Metabolic Ozg658 Cr eat 1.6 mg/dL 04/25/2017 Comp Metabolic Fvv066 eG FR 46 ml/min/1.73m2 04/25 Comp Metabolic Grt859 BUN 21 mg/dL 04/25/2017 Comp Metabolic Mwg993 B/ C Ratio 13.2 Ratio 04/25/2017 Comp Metabolic Qrc569 CA LCIUM 9.5 mg/dL 04/25/2017 Comp Metabolic Kio044 AL K PHOS 43 U/L 04/25/2017 Comp Metabolic Xod326 T(SGOT) 17 U/L 04/25/2017 Comp Metabolic Acb746 AL T(SGPT) 16 U/L 04/25/2017 Comp Metabolic Szt360 BI LI T 0.5 mg/dL 04/25/2017 Comp Metabolic Crz249 AL BUMIN 3.5 g/dL 04/25/2017 Comp Metabolic Jlf417 TP RO 6.6 g/dL 04/25/2017 Comp Metabolic Olh588 GL OB 3.2 g/dL 04/25/2017 Comp Metabolic Nnz802 A/ G Ratio 1.1 Ratio 04/25/2017 Comp Metabolic Kpo758 Os mo 281 mOsmo 04/25/2017 Lipid Ord30 [...] 31.8 pg 10/30/2016 Cbc With Differential Ord2 Greenlee% 15.2 % 10/30/2016 Cbc With Differential Ord2 [...] 1.79 K/ul 10/30/2016 Cbc With Differential Ord2 Greenlee ABS# 0.8 K/ul 10/30/2016 Cbc With Differential Ord2 Eos ABS# 0.1 K/ul 10/30/2016 Cbc With Differential Ord2 Baso ABS# 0.0 K/ul 10/30/2016 %Hba1C Whs234 % HbA1c 92234-6 6.0 % 10/30/2016 %Hba1C Tsr211 Gluc Ave 126 mg/dL 10/30/2016 Comp Metabolic Jvy415 NA 135 mEq/L 10/30/2016 Comp Metabolic Acq914 K 4.4 mEq/L 10/30/2016 Comp Metabolic Omi013 CL 102 mEq/L 10/30/2016 Comp Metabolic Rzk606 CO2 27.0 mEq/L 10/30/2016 Comp Metabolic Dnh805 AN ION GAP 10 10/30/2016 Comp Metabolic Ecn431 GL UCOSE 101 mg/dL 10/30/2016 Comp Metabolic Mfg832 Cr eat 1.6 mg/dL 10/30/2016 Comp Metabolic Ghs488 eG FR 47 ml/min/1.73m2 10/30 Comp Metabolic Xfg524 BUN 19 mg/dL 10/30/2016 Comp Metabolic Ejl411 B/ C Ratio 12.3 Ratio 10/30/2016 Comp Metabolic Dvh213 CA LCIUM 10.2 mg/dL 10/30/2016 Comp Metabolic Spe126 AL K PHOS 54 U/L 10/30/2016 Comp Metabolic Sxl446 T(SGOT) 20 U/L 10/30/2016 Comp Metabolic Igs771 AL T(SGPT) 16 U/L 10/30/2016 Comp Metabolic Mlb229 BI LI T 0.7 mg/dL 10/30/2016 Comp Metabolic Svb690 AL BUMIN 3.7 g/dL 10/30/2016 Comp Metabolic Ghj393 TP RO 7.3 g/dL 10/30/2016 Comp Metabolic Ova564 GL OB 3.6 g/dL 10/30/2016 Comp Metabolic Sfk817 A/ G Ratio 1.0 Ratio 10/30/2016 Comp Metabolic Nzh893 Os mo 272 mOsmo 10/30/2016 Tsh Ord6 [...] PRSV 4 VA L 3 YRS+ CPT-4: 76846 06/21/2017 ADMIN INFLUENZA VIRU S VAC CPT-4: G0008 06/21/2017 Vital Signs Date Vital 02/27/2019 Blood Pressure 1: 138/66 Code: 8480-6 BMI: 31.9 Code: 14068-2 Heart Rate 1: 65 bpm Height: 5'8" SpO2: 99% Weight: 210 lbs 08/30/2018 Blood Pressure 1: 124/70 Code: 8480-6 BMI: 31.6 Code: 60740-5 Heart Rate 1: 64 bpm Height: 5'8" SpO2: 98% Weight: 208 lbs 04/30/2018 Blood Pressure 1: 126/78 Code: 8480-6 BMI: 32.5 Code: 67517-1 Heart Rate 1: 65 bpm Height: 5'8" SpO2: 94% Weight: 214 lbs 10/30/2017 Blood Pressure 1: 142/84 Code: 8480-6 BMI: 32.8 Code: 13666-4 Heart Rate 1: 70 bpm Height: 5'8" SpO2: 96% Weight: 216 lbs 09/13/2017 Blood Pressure 1: 136/82 Code: 8480-6 BMI: 33.0 Code: 03786-8 Heart Rate 1: 80 bpm Height: 5'8" SpO2: 97% Weight: 217 lbs 04/30/2017 Blood Pressure 1: 120/70 Code: 8480-6 BMI: 32.2 Code: 61639-5 Heart Rate 1: 60 bpm Height: 5'8" SpO2: 98% Weight: 212 lbs 10/30/2016 Blood Pressure 1: 120/66 Code: 8480-6 BMI: 31.8 Code: 16193-1 Heart Rate 1: 58 bpm Height: 5'8" SpO2: 98% Weight: 209 lbs 07/31/2016 Blood Pressure 1: 140/66 Code: 8480-6 BMI: 31.6 Code: 15616-3 Heart Rate 1: 63 bpm Height: 5'8" [...] 09/13/2017 None low back pain Quality ac nightmute 09/13/2017 None low back pain Onset and [...] Encounters Encounter Performer Loca tion Codes Date 78925 EST. PATIENT, LEVEL III Diagnosis: Type 2 diabetes mellitus without complications[ICD10: E11.9] Diagnosis: Essential (primary) hypertension[ICD10: I10] Roberta Chiang MD, [facility] CPT-4: 22026 02/27/2019 45972 EST. PATIENT, LEVEL III Diagnosis: Type 2 diabetes mellitus without complications[ICD10: E11.9] Diagnosis: Essential (primary) hypertension[ICD10: I10] Roberta Chiang MD, [facility] CPT-4: 77832 08/30/2018 80889 EST. PATIENT, LEVEL IV Diagnosis: Type 2 diabetes mellitus without complications[ICD10: E11.9] Diagnosis: Essential (primary) hypertension[ICD10: I10] Diagnosis: Age-related osteoporosis without current pathological fracture[ICD10: M81.0] Roberta Chiang MD, [facility] CPT-4: 58067 04/30/2018 35752 EST. PATIENT, LEVEL IV Diagnosis: Type 2 diabetes mellitus without complications[ICD10: E11.9] Diagnosis: Essential (primary) hypertension[ICD10: I10] Diagnosis: Vitamin D deficiency, unspecified[ICD10: E55.9] Diagnosis: Low back pain[ICD10: M54.5] Roberta Chiang MD, [facility] CPT-4: 76178 10/30/2017 23743 EST. PATIENT, LEVEL III Diagnosis: Low back pain[ICD10: M54.5] Roberta Chiang MD, [facility] CPT-4: 82421 09/13/2017 40489 EST. PATIENT, LEVEL III Diagnosis: Type 2 diabetes mellitus without complications[ICD10: E11.9] Diagnosis: Essential (primary) hypertension[ICD10: I10] Roberta Chiang MD, [facility] CPT-4: 63912 04/30/2017 94021 EST. PATIENT, LEVEL III Diagnosis: Type 2 diabetes mellitus without complications[ICD10: E11.9] Diagnosis: Essential (primary) hypertension[ICD10: I10] [facility] CPT-4: 45024 10/30/2016 ([id number]) [facility] - LEVEL 4 Diagnosis: Essential (primary) hypertension[ICD10: I10] Diagnosis: Type 2 diabetes mellitus without complications[ICD10: E11.9] [facility] CPT-4: 95938 07/31/2016 Plan of Care Planned Activity Notes [...] at home. 02/27/2019 Appointment: Roberta Mahmood WPtel: [facility] [place] (15 min) Moderate 02/27/2019 Patient [...] controlled. 08/30/2018 [phone] [facility] Moderate 08/30/2018 Patient Education: Patient [...] injections. 04/30/2018 [phone] ([facility]) Moderate 04/30/2018 Patient Education: Patient [...] improve. 10/30/2017 [phone] [place] (30 min) Complex 10/30/2017 Patient Education: [...] improve. 09/13/2017 App[facility]ment[phone] [place] (15 min) Moderate 09/13/2017 Patient Education: [...] home. 04/30/2017 [facility]ment[phone] [place] (30 min) Complex 04/30/2017 Patient Education: [...] controlled. 10/30/2016 Appointment: Roberta Mahmood WPtel: [phone] [facility] (30 min) Complex 10/30/2016 Patient Education: Patient [...] less controlled. 07/31/2016 Appointment: Roberta Mahmood WPtel: [facility] [place] New Patient 07/31/2016 Patient Education: Patient Medication Summary Completed 07/31/2016 Appointment: Mamta Medrano WPtel: [phone] [phone] New Patient 07/25/2016 Instructions Comment [...]
--- OUTSIDE RECORDS SUMMARY | 2019-08-28 11:57 | XMS REPORT | CCD ---
Author Ace Koch Organization Bianca Chiang MD, [facility] Address [address] [place] [address] Phone Care Team Providers Care Corporate Risk Analyst Name Role Phone PP Unavailable CCM Unavailable Summary Purpose Interface Exchange Insurance Providers Payer name Policy type / Coverage type Covered republican ID Effective Begin Date Effective End Date WPS Medicare Part B Medicare Part B [id number] 2018 Unknown [facility] Part B [id number] Un known Family history Father Diagnosis Age [...] RxNorm: 7052 07/31/2016 No Inactive Date Active [id number] REDU CTASE INHIBITORS Unknown 07/31/2016 No Inactive [...] Vitamin D2 50,000 un it capsule RxNorm: 226398 1 Capsule(s) PO QW ta ke with daily vitamin d3 2000 units 11/13/2017 02/10/2018 Inactive Vitamin D2 50,000 un it capsule RxNorm: 570502 1 Capsule(s) PO QW ta ke with daily vitamin d3 2000 units 11/13/2017 11/12/2017 Inactive metoprolol tartrate 50 mg tablet RxNorm: 445610 Tablet(s) PO TAKE ONE TABLET BY MOUTH TWICE A DAY 10/30/2017 04/27/2018 Inactive prednisone 20 mg tablet RxNorm: 199041 2 Tablet(s) PO daily 09/18/2017 09/17/2017 Inactive prednisone 20 mg tablet RxNorm: 538225 2 Tablet(s) PO daily 09/18/2017 09/22/2017 Inactive cyclobenzaprine 5 mg tablet RxNorm: 883918 1 Tablet(s) PO TID as needed muscle spasms 09/13/2017 09/17/2017 Inactive metoprolol tartrate 25 mg tablet RxNorm: 573378 TAKE ONE TABLET BY [facility] TWICE A DAY 08/03/2017 10/29/2017 Inactive metoprolol tartrate 25 mg tablet RxNorm: 023470 1 Tablet(s) PO BID 05/02/2017 07/30/2017 Inactive aspirin 81 mg chewab le tablet RxNorm: 803871 2 Tablet(s) PO daily 04/30/2017 05/29/2017 Inactive metoprolol tartrate 50 mg tablet RxNorm: 394903 1/2 Tablet(s) PO BID No Start Date Active Vitamin D3 2,000 uni t capsule RxNorm: 120896 1 Capsule(s) PO daily No Start Date Active calcium 600 mg capsule RxNorm: 1 Capsule(s) PO daily No Start Date Active Prevacid 15 mg capsu le,delayed release RxNorm: 785571 1 Capsule(s) PO daily No Start Date Active tramadol 50 mg tablet RxNorm: 946195 1 -2 Tablet(s) PO Q4H as needed No Start Date Active ramipril 2.5 mg tablet RxNorm: 840112 1 Tablet(s) PO daily No Start Date 07/31/2016 Inactive aspirin 325 mg tablet RxNorm: 299221 1 Tablet(s) PO daily No Start Date 04/27/2017 Inactive metoprolol tartrate 25 mg tablet RxNorm: 588568 1 Tablet(s) PO BID No Start Date 05/01/2017 Inactive Medication Administered No Medication Administered data Immunizations Vaccine Codes Date Status Influenza CVX: 141 06/27 completed Pneumococcal CVX: 133 completed Influenza CVX: 141 06/21 completed Assessments Condition Codes Effectiv e Dates Type 2 diabetes mellitus without complications ICD-10: E11.9 ICD-9: 250.00 02/20/2019 Essential (primary) hypertension ICD -10: I10 ICD-9: 401.9 02/20/2019 Age-related osteoporosis without current pathological fracture ICD-10: M81.0 ICD-9: 733.00 04/30/2018 Anemia, unspecified ICD-10: D64.9 ICD-9: 285.9 01/31/2018 Vitamin D deficiency, unspecified IC D-10: E55.9 ICD-9: 268.9 10/30/2017 Low back pain ICD-10: M54.5 ICD-9: 724.2 10/30/2017 Encounter for immunization ICD-10: Z 23 ICD-9: V04.81 06/21/2017 Reason For Visit Reason For Visit Effective Dates Notes hypertension 08/30/2018 hypertension 04/30/2018 hypertension 10/30/2017 low back pain 09/13/2017 vaccination against influenza 06/21/2017 hypertension 04/30/2017 hypertension 10/30/2016 hypertension 07/31/2016 Results Observation Observation Code Item Item Code Result Date B12 Aku718 B12 781.00 pg/ml 02/06/2018 Folate Ord36 Folate 14.87 ng/mL 02/06/2018 Parathyroid Hormone Jnw046 PTH 39.10 pg/ml 01/21/2018 Vitamin D 25 Oh Tub1606 VITAMIN D, 25 HYDROXY 40.13 ng/mL 01/21/2018 [...] 32.3 pg 01/21/2018 Cbc With Differential Ord2 [place]% 13.0 % 01/21/2018 Cbc With Differential Ord2 [...] 1.51 K/ul 01/21/2018 Cbc With Differential Ord2 [place] ABS# 0.7 K/ul 01/21/2018 Cbc With Differential Ord2 Eos ABS# 0.2 K/ul 01/21/2018 Cbc With Differential Ord2 Baso ABS# 0.0 K/ul 01/21/2018 %Hba1C Maz440 % HbA1c 01241-9 5.9 % 01/21/2018 %Hba1C Zdo183 Gluc Ave 123 mg/dL 01/21/2018 Tsh Ord6 TSH (3rd IS) 1.96 uIU/mL 01/21/2018 Comp Metabolic Bxk194 NA 139 mEq/L 01/21/2018 Comp Metabolic Gak247 K 4.2 mEq/L 01/21/2018 Comp Metabolic Lam919 CL 106 mEq/L 01/21/2018 Comp Metabolic Rkm199 CO2 26.0 mEq/L 01/21/2018 Comp Metabolic Dlf172 AN ION GAP 11 01/21/2018 Comp Metabolic Rtf023 GL UCOSE 102 mg/dL 01/21/2018 Comp Metabolic Hjr372 Cr eat 1.6 mg/dL 01/21/2018 Comp Metabolic Fgb398 eG FR 47 ml/min/1.73m2 01/21 Comp Metabolic Fjh037 BUN 23 mg/dL 01/21/2018 Comp Metabolic Xgd907 B/ C Ratio 14.6 Ratio 01/21/2018 Comp Metabolic Ggb079 CA LCIUM 9.6 mg/dL 01/21/2018 Comp Metabolic Uco084 AL K PHOS 61 U/L 01/21/2018 Comp Metabolic Pcq325 T(SGOT) 15 U/L 01/21/2018 Comp Metabolic Nbv408 AL T(SGPT) 10 U/L 01/21/2018 Comp Metabolic Xxn317 BI LI T 0.5 mg/dL 01/21/2018 Comp Metabolic Fyv590 AL BUMIN 3.6 g/dL 01/21/2018 Comp Metabolic Jcq472 TP RO 6.7 g/dL 01/21/2018 Comp Metabolic Tze880 GL OB 3.1 g/dL 01/21/2018 Comp Metabolic Iqy590 A/ G Ratio 1.2 Ratio 01/21/2018 Comp Metabolic Toj463 Os mo 281 mOsmo 01/21/2018 Comp Metabolic Rrh238 NA 140 mEq/L 10/30/2017 Comp Metabolic Gru385 K 4.6 mEq/L 10/30/2017 Comp Metabolic Brs759 CL 106 mEq/L 10/30/2017 Comp Metabolic Neq433 CO2 24.0 mEq/L 10/30/2017 Comp Metabolic Kxn138 AN ION GAP 15 10/30/2017 Comp Metabolic Ejq729 GL UCOSE 126 mg/dL 10/30/2017 Comp Metabolic Hnb461 Cr eat 1.4 mg/dL 10/30/2017 Comp Metabolic Knm027 eG FR 53 ml/min/1.73m2 10/30 Comp Metabolic Qpd108 BUN 22 mg/dL 10/30/2017 Comp Metabolic Bji706 B/ C Ratio 15.6 Ratio 10/30/2017 Comp Metabolic Ozl671 CA LCIUM 9.7 mg/dL 10/30/2017 Comp Metabolic Sjy567 AL K PHOS 70 U/L 10/30/2017 Comp Metabolic Rgn807 T(SGOT) 18 U/L 10/30/2017 Comp Metabolic Xmi381 AL T(SGPT) 16 U/L 10/30/2017 Comp Metabolic Qpu560 BI LI T 0.4 mg/dL 10/30/2017 Comp Metabolic Ruy242 AL BUMIN 3.6 g/dL 10/30/2017 Comp Metabolic Uzb514 TP RO 6.6 g/dL 10/30/2017 Comp Metabolic Duh104 GL OB 3.0 g/dL 10/30/2017 Comp Metabolic Ghx324 A/ G Ratio 1.2 Ratio 10/30/2017 Comp Metabolic Gfc700 Os mo 284 mOsmo 10/30/2017 Cbc With [...] 33.4 pg 10/30/2017 Cbc With Differential Ord2 [place]% 15.5 % 10/30/2017 Cbc With Differential Ord2 [...] 1.43 K/ul 10/30/2017 Cbc With Differential Ord2 [place] ABS# 0.9 K/ul 10/30/2017 Cbc With Differential Ord2 Eos ABS# 0.2 K/ul 10/30/2017 Cbc With Differential Ord2 Baso ABS# 0.0 K/ul 10/30/2017 Vitamin D 25 Oh Tnj0700 VITAMIN D, 25 HYDROXY 22.30 ng/mL 10/30/2017 %Hba1C Cii556 % HbA1c 63937-2 6.9 % 10/30/2017 %Hba1C Bhe940 Gluc Ave 151 mg/dL 10/30/2017 Cbc With [...] 32.6 pg 04/25/2017 Cbc With Differential Ord2 [place]% 12.8 % 04/25/2017 Cbc With Differential Ord2 [...] 1.61 K/ul 04/25/2017 Cbc With Differential Ord2 [place] ABS# 0.7 K/ul 04/25/2017 Cbc With Differential Ord2 Eos ABS# 0.2 K/ul 04/25/2017 Cbc With Differential Ord2 Baso ABS# 0.0 K/ul 04/25/2017 %Hba1C Lhc936 % HbA1c 01944-1 6.1 % 04/25/2017 %Hba1C Efd510 Gluc Ave 128 mg/dL 04/25/2017 Tsh Ord6 hTSH II 1.39 uIU/mL 04/25/2017 Lipid Ord30 CHOL 126 mg/dL 04/25/2017 Lipid Ord30 HDL 37.0 mg/dl 04/25/2017 Lipid Ord30 TRIG 77 mg/dL 04/25/2017 Lipid Ord30 LDL 74 mg/dL 04/25/2017 Lipid Ord30 C/HDL 3.4 Ratio 04/25/2017 Comp Metabolic Ori944 NA 139 mEq/L 04/25/2017 Comp Metabolic Omi854 K 4.2 mEq/L 04/25/2017 Comp Metabolic Iad515 CL 106 mEq/L 04/25/2017 Comp Metabolic Ojs661 CO2 24.0 mEq/L 04/25/2017 Comp Metabolic Cwz742 AN ION GAP 13 04/25/2017 Comp Metabolic Ooi249 GL UCOSE 105 mg/dL 04/25/2017 Comp Metabolic Ifl238 Cr eat 1.6 mg/dL 04/25/2017 Comp Metabolic Xvk386 eG FR 46 ml/min/1.73m2 04/25 Comp Metabolic Hwb055 BUN 21 mg/dL 04/25/2017 Comp Metabolic Kob634 B/ C Ratio 13.2 Ratio 04/25/2017 Comp Metabolic Tcm413 CA LCIUM 9.5 mg/dL 04/25/2017 Comp Metabolic Wzp166 AL K PHOS 43 U/L 04/25/2017 Comp Metabolic Qni401 T(SGOT) 17 U/L 04/25/2017 Comp Metabolic Fck780 AL T(SGPT) 16 U/L 04/25/2017 Comp Metabolic Msf640 BI LI T 0.5 mg/dL 04/25/2017 Comp Metabolic Ivd626 AL BUMIN 3.5 g/dL 04/25/2017 Comp Metabolic Thk183 TP RO 6.6 g/dL 04/25/2017 Comp Metabolic Edy179 GL OB 3.2 g/dL 04/25/2017 Comp Metabolic Hhv414 A/ G Ratio 1.1 Ratio 04/25/2017 Comp Metabolic Oce736 Os mo 281 mOsmo 04/25/2017 Lipid Ord30 [...] 31.8 pg 10/30/2016 Cbc With Differential Ord2 [place]% 15.2 % 10/30/2016 Cbc With Differential Ord2 [...] 1.79 K/ul 10/30/2016 Cbc With Differential Ord2 [place] ABS# 0.8 K/ul 10/30/2016 Cbc With Differential Ord2 Eos ABS# 0.1 K/ul 10/30/2016 Cbc With Differential Ord2 Baso ABS# 0.0 K/ul 10/30/2016 %Hba1C Pye753 % HbA1c 01065-4 6.0 % 10/30/2016 %Hba1C Tht910 Gluc Ave 126 mg/dL 10/30/2016 Comp Metabolic Hnl899 NA 135 mEq/L 10/30/2016 Comp Metabolic Ovm918 K 4.4 mEq/L 10/30/2016 Comp Metabolic Qbs963 CL 102 mEq/L 10/30/2016 Comp Metabolic Yoc839 CO2 27.0 mEq/L 10/30/2016 Comp Metabolic Rtq163 AN ION GAP 10 10/30/2016 Comp Metabolic Mlp180 GL UCOSE 101 mg/dL 10/30/2016 Comp Metabolic Gyu305 Cr eat 1.6 mg/dL 10/30/2016 Comp Metabolic Ezq771 eG FR 47 ml/min/1.73m2 10/30 Comp Metabolic Axi187 BUN 19 mg/dL 10/30/2016 Comp Metabolic Ylf266 B/ C Ratio 12.3 Ratio 10/30/2016 Comp Metabolic Yzg843 CA LCIUM 10.2 mg/dL 10/30/2016 Comp Metabolic Kzl944 AL K PHOS 54 U/L 10/30/2016 Comp Metabolic Rsf116 T(SGOT) 20 U/L 10/30/2016 Comp Metabolic Akv898 AL T(SGPT) 16 U/L 10/30/2016 Comp Metabolic Nwd694 BI LI T 0.7 mg/dL 10/30/2016 Comp Metabolic Ebx801 AL BUMIN 3.7 g/dL 10/30/2016 Comp Metabolic Xvb447 TP RO 7.3 g/dL 10/30/2016 Comp Metabolic Hvi313 GL OB 3.6 g/dL 10/30/2016 Comp Metabolic Vim884 A/ G Ratio 1.0 Ratio 10/30/2016 Comp Metabolic Fkh445 Os mo 272 mOsmo 10/30/2016 Tsh Ord6 hTSH II 1.03 uIU/mL 10/30/2016 Review of Systems System Result Effective Dates Constitutional No recent illness 08/30/2018 Constitutional No [...] PRSV 4 VA L 3 YRS+ CPT-4: 15218 06/21/2017 ADMIN INFLUENZA VIRU S VAC CPT-4: G0008 06/21/2017 Vital Signs Date Vital 08/30/2018 Blood Pressure 1: 124/70 Code: 8480-6 BMI: 31.6 Code: 15092-9 Heart Rate 1: 64 bpm Height: 5'8" SpO2: 98% Weight: 208 lbs 04/30/2018 Blood Pressure 1: 126/78 Code: 8480-6 BMI: 32.5 Code: 41114-9 Heart Rate 1: 65 bpm Height: 5'8" SpO2: 94% Weight: 214 lbs 10/30/2017 Blood Pressure 1: 142/84 Code: 8480-6 BMI: 32.8 Code: 11463-0 Heart Rate 1: 70 bpm Height: 5'8" SpO2: 96% Weight: 216 lbs 09/13/2017 Blood Pressure 1: 136/82 Code: 8480-6 BMI: 33.0 Code: 33172-2 Heart Rate 1: 80 bpm Height: 5'8" SpO2: 97% Weight: 217 lbs 04/30/2017 Blood Pressure 1: 120/70 Code: 8480-6 BMI: 32.2 Code: 63078-5 Heart Rate 1: 60 bpm Height: 5'8" SpO2: 98% Weight: 212 lbs 10/30/2016 Blood Pressure 1: 120/66 Code: 8480-6 BMI: 31.8 Code: 53562-1 Heart Rate 1: 58 bpm Height: 5'8" SpO2: 98% Weight: 209 lbs 07/31/2016 Blood Pressure 1: 140/66 Code: 8480-6 BMI: 31.6 Code: 33244-9 Heart Rate 1: 63 bpm Height: 5'8" SpO2: 95% Weight: 208 lbs Functional Status No Functional Status data History of Present Illness Symptom Name Status Resu lt Effective Date Notes Onset of Symptom durin g adulthood 08/30/2018 [...] 09/13/2017 None low back pain Quality ac [place] 09/13/2017 None low back pain Onset and [...] Encounters Encounter Performer Loca tion Codes Date 05063 EST. PATIENT, LEVEL III Diagnosis: Type 2 diabetes mellitus without complications[ICD10: E11.9] Diagnosis: Essential (primary) hypertension[ICD10: I10] Roberta Chiang MD, [facility] CPT-4: 11623 08/30/2018 09230 EST. PATIENT, LEVEL IV Diagnosis: Type 2 diabetes mellitus without complications[ICD10: E11.9] Diagnosis: Essential (primary) hypertension[ICD10: I10] Diagnosis: Age-related osteoporosis without current pathological fracture[ICD10: M81.0] Roberta Chiang MD, [facility] CPT-4: 49099 04/30/2018 44435 EST. PATIENT, LEVEL IV Diagnosis: Type 2 diabetes mellitus without complications[ICD10: E11.9] Diagnosis: Essential (primary) hypertension[ICD10: I10] Diagnosis: Vitamin D deficiency, unspecified[ICD10: E55.9] Diagnosis: Low back pain[ICD10: M54.5] Roberta Chiang MD, [facility] CPT-4: 82109 10/30/2017 27158 EST. PATIENT, LEVEL III Diagnosis: Low back pain[ICD10: M54.5] Roberta Chiang MD, [facility] CPT-4: 25644 09/13/2017 74605 EST. PATIENT, LEVEL III Diagnosis: Type 2 diabetes mellitus without complications[ICD10: E11.9] Diagnosis: Essential (primary) hypertension[ICD10: I10] Roberta Chiang MD, [facility] CPT-4: 39855 04/30/2017 59435 EST. PATIENT, LEVEL III Diagnosis: Type 2 diabetes mellitus without complications[ICD10: E11.9] Diagnosis: Essential (primary) hypertension[ICD10: I10] Roberta Chiang MD, [facility] CPT-4: 55068 10/30/2016 ([id number]) OFFICE VISI T, NEW - LEVEL 4 Diagnosis: Essential (primary) hypertension[ICD10: I10] Diagnosis: Type 2 diabetes mellitus without complications[ICD10: E11.9] Roberta Chiang MD, [facility] CPT-4: 73999 07/31/2016 Plan of Care Planned Activity Notes C odes Status Date Patient Education: Patient Medication Summary Completed 02/20/2019 Care Plan: Comp Metabolic Pending 02/20/2019 Care Plan: Cbc With Differential Pending 02/20/2019 Care Plan: Tsh Pending 02/20/2019 Care Plan: Lipid Pending 02/20/2019 Care Plan: %Hba1C RODOLFO C : 41989-5 Pending 02/20/2019 Visit Plan: Hypertension - well con [...] less controlled. 08/30/2018 Appointment: Roberta Mahmood WPtel: [phone] [facility] (15 min) Moderate 08/30/2018 Patient Education: Patient Medication Summary Completed 08/30/2018 Patient Education: Obesity Completed 08/30/2018 Visit Plan: Hypertension - well con trolled [...] Prolia injections. 04/30/2018 Appointment: Roberta Mahmood WPtel: [phone] [facility] (15 min) Moderate 04/30/2018 Patient Education: Patient [...] or does not improve. 10/30/2017 Appointment: [phone] [facility] (30 min) Complex 10/30/2017 Patient Education: Patient [...] improve. 09/13/2017 Appointment: [facility] WPtel[facility] [phone] [facility] (15 min) Moderate 09/13/2017 Patient Education: Patient Medication Summary Completed 09/13/2017 Appointment: Injection 06/21/2017 Patient Education: Patient Medication Summary Completed 06/21/2017 Visit Plan: Diabetes Mellitus - con trolled - per recent FSBS reports. I have [...] home. 04/30/2017 Appointment: [facility] Mah[facility]ood WPtel[facility] [phone] [facility] (30 min) Complex 04/30/2017 Patient Education: Patient [...] controlled. 10/30/2016 Appointment: [facility] Mah[facility]ood WPtel[facility] [phone] [facility] (30 min) Complex 10/30/2016 Patient Education: Patient [...] starting to become less controlled. 07/31/2016 Appointment: [place] Roberta WPtel[facility] [phone] [facility] New Patient 07/31/2016 Patient Education: Patient Medication Summary Completed 07/31/2016 Appointment: Mamta Medrano [facility]Ptel[facility] [phone] [phone] New Patient 07/25/2016 Instructions Comment . Hypertension [...] or does not improve. . Hypertension - [place] ontrolled - the [...]
--- OUTSIDE RECORDS SUMMARY | 2019-08-28 11:57 | XMS REPORT | CCD ---
Author Ace Koch Organization Bianca Chiang MD, [facility] Address [address] [place] [address] Phone Care Team Providers Care Access Database Developer Name Role Phone PP Unavailable CCM Unavailable Summary Purpose Interface Exchange Insurance Providers Payer name Policy type / Coverage type Covered alliance party ID Effective Begin Date Effective End Date WPS Medicare Part B Medicare Part B [id number] 2018 Unknown [facility] Part B [id number] Un known Family history Father Diagnosis Age [...] RxNorm: 7052 07/31/2016 No Inactive Date Active AIILVER-HLJ-IJY REDU CTASE INHIBITORS Unknown 07/31/2016 No Inactive [...] Vitamin D2 50,000 un it capsule RxNorm: 134771 1 Capsule(s) PO QW ta ke with daily vitamin d3 2000 units 11/13/2017 02/10/2018 Inactive Vitamin D2 50,000 un it capsule RxNorm: 855056 1 Capsule(s) PO QW ta ke with daily vitamin d3 2000 units 11/13/2017 11/12/2017 Inactive metoprolol tartrate 50 mg tablet RxNorm: 242683 Tablet(s) PO TAKE ONE TABLET BY MOUTH TWICE A DAY 10/30/2017 04/27/2018 Inactive prednisone 20 mg tablet RxNorm: 058897 2 Tablet(s) PO daily 09/18/2017 09/17/2017 Inactive prednisone 20 mg tablet RxNorm: 823388 2 Tablet(s) PO daily 09/18/2017 09/22/2017 Inactive cyclobenzaprine 5 mg tablet RxNorm: 451068 1 Tablet(s) PO TID as needed muscle spasms 09/13/2017 09/17/2017 Inactive metoprolol tartrate 25 mg tablet RxNorm: 499081 TAKE ONE TABLET BY [facility] TWICE A DAY 08/03/2017 10/29/2017 Inactive metoprolol tartrate 25 mg tablet RxNorm: 465462 1 Tablet(s) PO BID 05/02/2017 07/30/2017 Inactive aspirin 81 mg chewab le tablet RxNorm: 325304 2 Tablet(s) PO daily 04/30/2017 05/29/2017 Inactive metoprolol tartrate 50 mg tablet RxNorm: 487965 1/2 Tablet(s) PO BID No Start Date Active Vitamin D3 2,000 uni t capsule RxNorm: 323531 1 Capsule(s) PO daily No Start Date Active calcium 600 mg capsule RxNorm: 1 Capsule(s) PO daily No Start Date Active Prevacid 15 mg capsu le,delayed release RxNorm: 846463 1 Capsule(s) PO daily No Start Date Active tramadol 50 mg tablet RxNorm: 099252 1 -2 Tablet(s) PO Q4H as needed No Start Date Active ramipril 2.5 mg tablet RxNorm: 659804 1 Tablet(s) PO daily No Start Date 07/31/2016 Inactive aspirin 325 mg tablet RxNorm: 775033 1 Tablet(s) PO daily No Start Date 04/27/2017 Inactive metoprolol tartrate 25 mg tablet RxNorm: 788114 1 Tablet(s) PO BID No Start Date [...] Code Item Item Code Result Date B12 Syp709 B12 781.00 pg/ml 02/06/2018 Folate Ord36 Folate 14.87 ng/mL 02/06/2018 Parathyroid Hormone Lpz081 PTH 39.10 pg/ml 01/21/2018 Vitamin D 25 Oh Dzw5831 VITAMIN D, 25 HYDROXY 40.13 ng/mL 01/21/2018 [...] 32.3 pg 01/21/2018 Cbc With Differential Ord2 Eagle% 13.0 % 01/21/2018 Cbc With Differential Ord2 [...] 1.51 K/ul 01/21/2018 Cbc With Differential Ord2 Eagle ABS# 0.7 K/ul 01/21/2018 Cbc With Differential Ord2 Eos ABS# 0.2 K/ul 01/21/2018 Cbc With Differential Ord2 Baso ABS# 0.0 K/ul 01/21/2018 %Hba1C Uvt157 % HbA1c 06296-2 5.9 % 01/21/2018 %Hba1C Jee368 Gluc Ave 123 mg/dL 01/21/2018 Tsh Ord6 TSH (3rd IS) 1.96 uIU/mL 01/21/2018 Comp Metabolic Dlw558 NA 139 mEq/L 01/21/2018 Comp Metabolic Fid308 K 4.2 mEq/L 01/21/2018 Comp Metabolic Ojt784 CL 106 mEq/L 01/21/2018 Comp Metabolic Gvh965 CO2 26.0 mEq/L 01/21/2018 Comp Metabolic Wtz199 AN ION GAP 11 01/21/2018 Comp Metabolic Sje295 GL UCOSE 102 mg/dL 01/21/2018 Comp Metabolic Wwh262 Cr eat 1.6 mg/dL 01/21/2018 Comp Metabolic Cvt836 eG FR 47 ml/min/1.73m2 01/21 Comp Metabolic Ljm624 BUN 23 mg/dL 01/21/2018 Comp Metabolic Dcv218 B/ C Ratio 14.6 Ratio 01/21/2018 Comp Metabolic Luq681 CA LCIUM 9.6 mg/dL 01/21/2018 Comp Metabolic Aad288 AL K PHOS 61 U/L 01/21/2018 Comp Metabolic Cph102 T(SGOT) 15 U/L 01/21/2018 Comp Metabolic Iet861 AL T(SGPT) 10 U/L 01/21/2018 Comp Metabolic Nyq230 BI LI T 0.5 mg/dL 01/21/2018 Comp Metabolic Kwi636 AL BUMIN 3.6 g/dL 01/21/2018 Comp Metabolic Shd943 TP RO 6.7 g/dL 01/21/2018 Comp Metabolic Thk730 GL OB 3.1 g/dL 01/21/2018 Comp Metabolic Jci768 A/ G Ratio 1.2 Ratio 01/21/2018 Comp Metabolic Adi541 Os mo 281 mOsmo 01/21/2018 Comp Metabolic Uxp546 NA 140 mEq/L 10/30/2017 Comp Metabolic Ykb194 K 4.6 mEq/L 10/30/2017 Comp Metabolic Xpu149 CL 106 mEq/L 10/30/2017 Comp Metabolic Vru220 CO2 24.0 mEq/L 10/30/2017 Comp Metabolic Bfc691 AN ION GAP 15 10/30/2017 Comp Metabolic Gkd512 GL UCOSE 126 mg/dL 10/30/2017 Comp Metabolic Ujo825 Cr eat 1.4 mg/dL 10/30/2017 Comp Metabolic Jmu567 eG FR 53 ml/min/1.73m2 10/30 Comp Metabolic Upp534 BUN 22 mg/dL 10/30/2017 Comp Metabolic Ajs658 B/ C Ratio 15.6 Ratio 10/30/2017 Comp Metabolic Dvq048 CA LCIUM 9.7 mg/dL 10/30/2017 Comp Metabolic Wnb576 AL K PHOS 70 U/L 10/30/2017 Comp Metabolic Fcx787 T(SGOT) 18 U/L 10/30/2017 Comp Metabolic Emo774 AL T(SGPT) 16 U/L 10/30/2017 Comp Metabolic Pfp207 BI LI T 0.4 mg/dL 10/30/2017 Comp Metabolic Jow394 AL BUMIN 3.6 g/dL 10/30/2017 Comp Metabolic Lxy621 TP RO 6.6 g/dL 10/30/2017 Comp Metabolic Wuo535 GL OB 3.0 g/dL 10/30/2017 Comp Metabolic Dpr030 A/ G Ratio 1.2 Ratio 10/30/2017 Comp Metabolic Yot996 Os mo 284 mOsmo 10/30/2017 Cbc With [...] 33.4 pg 10/30/2017 Cbc With Differential Ord2 Eagle% 15.5 % 10/30/2017 Cbc With Differential Ord2 [...] 1.43 K/ul 10/30/2017 Cbc With Differential Ord2 Eagle ABS# 0.9 K/ul 10/30/2017 Cbc With Differential Ord2 Eos ABS# 0.2 K/ul 10/30/2017 Cbc With Differential Ord2 Baso ABS# 0.0 K/ul 10/30/2017 Vitamin D 25 Oh Nsg7894 VITAMIN D, 25 HYDROXY 22.30 ng/mL 10/30/2017 %Hba1C Luh493 % HbA1c 29855-3 6.9 % 10/30/2017 %Hba1C Gwu386 Gluc Ave 151 mg/dL 10/30/2017 Cbc With [...] 32.6 pg 04/25/2017 Cbc With Differential Ord2 Eagle% 12.8 % 04/25/2017 Cbc With Differential Ord2 [...] 1.61 K/ul 04/25/2017 Cbc With Differential Ord2 Eagle ABS# 0.7 K/ul 04/25/2017 Cbc With Differential Ord2 Eos ABS# 0.2 K/ul 04/25/2017 Cbc With Differential Ord2 Baso ABS# 0.0 K/ul 04/25/2017 %Hba1C Mgv540 % HbA1c 72570-9 6.1 % 04/25/2017 %Hba1C Qmz924 Gluc Ave 128 mg/dL 04/25/2017 Tsh Ord6 hTSH II 1.39 uIU/mL 04/25/2017 Lipid Ord30 CHOL 126 mg/dL 04/25/2017 Lipid Ord30 HDL 37.0 mg/dl 04/25/2017 Lipid Ord30 TRIG 77 mg/dL 04/25/2017 Lipid Ord30 LDL 74 mg/dL 04/25/2017 Lipid Ord30 C/HDL 3.4 Ratio 04/25/2017 Comp Metabolic Wyx628 NA 139 mEq/L 04/25/2017 Comp Metabolic Djp927 K 4.2 mEq/L 04/25/2017 Comp Metabolic Ctz501 CL 106 mEq/L 04/25/2017 Comp Metabolic Xrz474 CO2 24.0 mEq/L 04/25/2017 Comp Metabolic Fkx811 AN ION GAP 13 04/25/2017 Comp Metabolic Tws250 GL UCOSE 105 mg/dL 04/25/2017 Comp Metabolic Trx933 Cr eat 1.6 mg/dL 04/25/2017 Comp Metabolic Rqj418 eG FR 46 ml/min/1.73m2 04/25 Comp Metabolic Dfh665 BUN 21 mg/dL 04/25/2017 Comp Metabolic Vbe059 B/ C Ratio 13.2 Ratio 04/25/2017 Comp Metabolic Lxt939 CA LCIUM 9.5 mg/dL 04/25/2017 Comp Metabolic Rlo688 AL K PHOS 43 U/L 04/25/2017 Comp Metabolic Vgb161 T(SGOT) 17 U/L 04/25/2017 Comp Metabolic Nul223 AL T(SGPT) 16 U/L 04/25/2017 Comp Metabolic Uqr894 BI LI T 0.5 mg/dL 04/25/2017 Comp Metabolic Rdb510 AL BUMIN 3.5 g/dL 04/25/2017 Comp Metabolic Gtf621 TP RO 6.6 g/dL 04/25/2017 Comp Metabolic Zbk391 GL OB 3.2 g/dL 04/25/2017 Comp Metabolic Yrx305 A/ G Ratio 1.1 Ratio 04/25/2017 Comp Metabolic Htx200 Os mo 281 mOsmo 04/25/2017 Lipid Ord30 [...] 31.8 pg 10/30/2016 Cbc With Differential Ord2 Eagle% 15.2 % 10/30/2016 Cbc With Differential Ord2 [...] 1.79 K/ul 10/30/2016 Cbc With Differential Ord2 Eagle ABS# 0.8 K/ul 10/30/2016 Cbc With Differential Ord2 Eos ABS# 0.1 K/ul 10/30/2016 Cbc With Differential Ord2 Baso ABS# 0.0 K/ul 10/30/2016 %Hba1C Vcr296 % HbA1c 63256-2 6.0 % 10/30/2016 %Hba1C Seb920 Gluc Ave 126 mg/dL 10/30/2016 Comp Metabolic Akq396 NA 135 mEq/L 10/30/2016 Comp Metabolic Zoq063 K 4.4 mEq/L 10/30/2016 Comp Metabolic Hph469 CL 102 mEq/L 10/30/2016 Comp Metabolic Joj449 CO2 27.0 mEq/L 10/30/2016 Comp Metabolic Npz387 AN ION GAP 10 10/30/2016 Comp Metabolic Gvx689 GL UCOSE 101 mg/dL 10/30/2016 Comp Metabolic Lbp918 Cr eat 1.6 mg/dL 10/30/2016 Comp Metabolic Smc636 eG FR 47 ml/min/1.73m2 10/30 Comp Metabolic Zlb953 BUN 19 mg/dL 10/30/2016 Comp Metabolic Jqi537 B/ C Ratio 12.3 Ratio 10/30/2016 Comp Metabolic Vqu818 CA LCIUM 10.2 mg/dL 10/30/2016 Comp Metabolic Klm231 AL K PHOS 54 U/L 10/30/2016 Comp Metabolic Iew146 T(SGOT) 20 U/L 10/30/2016 Comp Metabolic Hdc823 AL T(SGPT) 16 U/L 10/30/2016 Comp Metabolic Jgo018 BI LI T 0.7 mg/dL 10/30/2016 Comp Metabolic Rwl172 AL BUMIN 3.7 g/dL 10/30/2016 Comp Metabolic Ufm091 TP RO 7.3 g/dL 10/30/2016 Comp Metabolic Tkx755 GL OB 3.6 g/dL 10/30/2016 Comp Metabolic Hpc546 A/ G Ratio 1.0 Ratio 10/30/2016 Comp Metabolic Svm914 Os mo 272 mOsmo 10/30/2016 Tsh Ord6 [...] PRSV 4 VA L 3 YRS+ CPT-4: 70755 06/21/2017 ADMIN INFLUENZA VIRU S VAC CPT-4: G0008 06/21/2017 Vital Signs Date Vital 08/30/2018 Blood Pressure 1: 124/70 Code: 8480-6 BMI: 31.6 Code: 33559-0 Heart Rate 1: 64 bpm Height: 5'8" SpO2: 98% Weight: 208 lbs 04/30/2018 Blood Pressure 1: 126/78 Code: 8480-6 BMI: 32.5 Code: 28772-9 Heart Rate 1: 65 bpm Height: 5'8" SpO2: 94% Weight: 214 lbs 10/30/2017 Blood Pressure 1: 142/84 Code: 8480-6 BMI: 32.8 Code: 38172-5 Heart Rate 1: 70 bpm Height: 5'8" SpO2: 96% Weight: 216 lbs 09/13/2017 Blood Pressure 1: 136/82 Code: 8480-6 BMI: 33.0 Code: 14116-6 Heart Rate 1: 80 bpm Height: 5'8" SpO2: 97% Weight: 217 lbs 04/30/2017 Blood Pressure 1: 120/70 Code: 8480-6 BMI: 32.2 Code: 79049-1 Heart Rate 1: 60 bpm Height: 5'8" SpO2: 98% Weight: 212 lbs 10/30/2016 Blood Pressure 1: 120/66 Code: 8480-6 BMI: 31.8 Code: 77300-7 Heart Rate 1: 58 bpm Height: 5'8" SpO2: 98% Weight: 209 lbs 07/31/2016 Blood Pressure 1: 140/66 Code: 8480-6 BMI: 31.6 Code: 55643-4 Heart Rate 1: 63 bpm Height: 5'8" [...] 09/13/2017 None low back pain Quality ac [place] 09/13/2017 None low back pain Onset and [...] Encounters Encounter Performer Loca tion Codes Date 75873 EST. PATIENT, LEVEL III Diagnosis: Type 2 diabetes mellitus without complications[ICD10: E11.9] Diagnosis: Essential (primary) hypertension[ICD10: I10] Roberta Chiang MD, [facility] CPT-4: 02622 08/30/2018 24502 EST. PATIENT, LEVEL IV Diagnosis: Type 2 diabetes mellitus without complications[ICD10: E11.9] Diagnosis: Essential (primary) hypertension[ICD10: I10] Diagnosis: Age-related osteoporosis without current pathological fracture[ICD10: M81.0] Roberta Chiang MD, [facility] CPT-4: 04673 04/30/2018 71979 EST. PATIENT, LEVEL IV Diagnosis: Type 2 diabetes mellitus without complications[ICD10: E11.9] Diagnosis: Essential (primary) hypertension[ICD10: I10] Diagnosis: Vitamin D deficiency, unspecified[ICD10: E55.9] Diagnosis: Low back pain[ICD10: M54.5] Roberta Chiang MD, [facility] CPT-4: 92852 10/30/2017 35727 EST. PATIENT, LEVEL III Diagnosis: Low back pain[ICD10: M54.5] Roberta Chiang MD, [facility] CPT-4: 00287 09/13/2017 90287 EST. PATIENT, LEVEL III Diagnosis: Type 2 diabetes mellitus without complications[ICD10: E11.9] Diagnosis: Essential (primary) hypertension[ICD10: I10] Roberta Chiang MD, [facility] CPT-4: 93264 04/30/2017 30810 EST. PATIENT, LEVEL III Diagnosis: Type 2 diabetes mellitus without complications[ICD10: E11.9] Diagnosis: Essential (primary) hypertension[ICD10: I10] Roberta Chiang MD, [facility] CPT-4: 70137 10/30/2016 ([id number]) OFFICE VISI T, NEW - LEVEL 4 Diagnosis: Essential (primary) hypertension[ICD10: I10] Diagnosis: Type 2 diabetes mellitus without complications[ICD10: E11.9] Roberta Chiang MD, [facility] CPT-4: 23754 07/31/2016 Plan of Care Planned Activity Notes C odes Status Date Patient Education: Patient Medication Summary Completed 02/20/2019 Care Plan: Comp Metabolic Pending 02/20/2019 Care Plan: Cbc With Differential Pending 02/20/2019 Care Plan: Tsh Pending 02/20/2019 Care Plan: Lipid Pending 02/20/2019 Care Plan: %Hba1C RODOLFO C : 32653-7 Pending 02/20/2019 Visit Plan: Hypertension - well [...] controlled. 08/30/2018 Appointment: Roberta Mahmood WPtel: [phone] [facility] (15 min) Moderate 08/30/2018 Patient Education: Patient [...] injections. 04/30/2018 Appointment: Roberta Mahmood WPtel: [phone] [facility] (15 min) Moderate 04/30/2018 Patient Education: Patient [...] not improve. 10/30/2017 Appointment: [facility]: [phone] [place] (30 min) Complex 10/30/2017 Patient Education: Patient [...] improve. 09/13/2017 Appointment: Rober[facility] Mahmood WPtel: [phone] [facility] [place] (15 min) Moderate 09/13/2017 Patient Education: Patient [...] home. 04/30/2017 Appointment: Roberta Mahmood WPtel: [phone] [facility] [place] (30 min) Complex 04/30/2017 Patient Education: Patient [...] controlled. 10/30/2016 Appointment: Roberta Mahmood WPtel: [phone] [facility] [place] (30 min) Complex 10/30/2016 Patient Education: Patient [...] less controlled. 07/31/2016 Appointment: Timoteo Roberta WPtel: [phone] [facility] [place] New Patient 07/31/2016 Patient Education: Patient Medication Summary Completed 07/31/2016 Appointment: Mamta Medrano WPtel: [phone] [facility] [phone] New Patient 07/25/2016 Instructions Comment . Hypertension [...]
--- OUTSIDE RECORDS SUMMARY | 2019-08-28 11:58 | XMS REPORT | CCD ---
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 Part B [id number] Un known Family history Father Diagnosis Age [...] RxNorm: 7052 07/31/2016 No Inactive Date Active [id number] REDU CTASE INHIBITORS Unknown 07/31/2016 No Inactive Date Active Past Medical History Illness Codes Condition Status Onset Date Resolved Date Age-related osteopor osis without current pathological fracture ICD-9: 733.00 ICD-10: M81.0 Active 04/30/2018 Unknown Essential (primary) hypertension ICD-9: 401.9 ICD-10: I10 Active 07/30/2016 Unknown Type 2 diabetes belle itus without complications ICD-9: 250.00 ICD-10: E11.9 Active 07/30/2016 Unknown Low back pain ICD-9: 724.2 ICD-10: [...] Condition Codes Effectiv e Dates Condition Status Age-related osteopor osis without current pathological fracture ICD-9: 733.00 ICD-10: M81.0 04/30/2018 Active Essential (primary) hypertension ICD-9: 401.9 ICD-10: I10 07/30/2016 Active Type 2 diabetes belle itus without complications ICD-9: 250.00 ICD-10: E11.9 07/30/2016 Active Low back pain ICD-9: 724.2 ICD-10: [...] Vitamin D2 50,000 un it capsule RxNorm: 690485 1 Capsule(s) PO QW ta ke with daily vitamin d3 2000 units 11/13/2017 02/10/2018 Inactive Vitamin D2 50,000 un it capsule RxNorm: 266195 1 Capsule(s) PO QW ta ke with daily vitamin d3 2000 units 11/13/2017 11/12/2017 Inactive metoprolol tartrate 50 mg tablet RxNorm: 595741 Tablet(s) PO TAKE ONE TABLET BY MOUTH TWICE A DAY 10/30/2017 04/27/2018 Inactive prednisone 20 mg tablet RxNorm: 176723 2 Tablet(s) PO daily 09/18/2017 09/17/2017 Inactive prednisone 20 mg tablet RxNorm: 581228 2 Tablet(s) PO daily 09/18/2017 09/22/2017 Inactive cyclobenzaprine 5 mg tablet RxNorm: 397063 1 Tablet(s) PO TID as needed muscle spasms 09/13/2017 09/17/2017 Inactive metoprolol tartrate 25 mg tablet RxNorm: 917717 TAKE ONE TABLET BY [facility] TWICE A DAY 08/03/2017 10/29/2017 Inactive metoprolol tartrate 25 mg tablet RxNorm: 025630 1 Tablet(s) PO BID 05/02/2017 07/30/2017 Inactive aspirin 81 mg chewab le tablet RxNorm: 216542 2 Tablet(s) PO daily 04/30/2017 05/29/2017 Inactive metoprolol tartrate 50 mg tablet RxNorm: 217519 1/2 Tablet(s) PO BID No Start Date Active Vitamin D3 2,000 uni t capsule RxNorm: 494845 1 Capsule(s) PO daily No Start Date Active calcium 600 mg capsule RxNorm: 1 Capsule(s) PO daily No Start Date Active Prevacid 15 mg capsu le,delayed release RxNorm: 627201 1 Capsule(s) PO daily No Start Date Active tramadol 50 mg tablet RxNorm: 792358 1 -2 Tablet(s) PO Q4H as needed No Start Date Active ramipril 2.5 mg tablet RxNorm: 132897 1 Tablet(s) PO daily No Start Date 07/31/2016 Inactive aspirin 325 mg tablet RxNorm: 361672 1 Tablet(s) PO daily No Start Date 04/27/2017 Inactive metoprolol tartrate 25 mg tablet RxNorm: 723860 1 Tablet(s) PO BID No Start Date 05/01/2017 Inactive Medication Administered No Medication Administered data Immunizations Vaccine Codes Date Status Influenza CVX: 141 06/27 completed Pneumococcal CVX: 133 completed Influenza CVX: 141 06/21 completed Assessments Condition Codes Effectiv e Dates Type 2 diabetes mellitus without complications ICD-10: E11.9 ICD-9: 250.00 08/30/2018 Essential (primary) hypertension ICD -10: I10 ICD-9: 401.9 08/30/2018 Age-related osteoporosis without current pathological fracture ICD-10: [...] Code Item Item Code Result Date B12 Rvn478 B12 781.00 pg/ml 02/06/2018 Folate Ord36 Folate 14.87 ng/mL 02/06/2018 Parathyroid Hormone Wiq742 PTH 39.10 pg/ml 01/21/2018 Vitamin D 25 Oh Yqv7213 VITAMIN D, 25 HYDROXY 40.13 ng/mL 01/21/2018 Cbc With Differential Ord2 WBC 5.61 K/ul 01/21/2018 Cbc With Differential Ord2 RBC 3.96 M/ul 01/21/2018 Cbc With Differential Ord2 HGB 12.8 g/dl 01/21/2018 Cbc With Differential Ord2 Neut% 56.0 % 01/21/2018 Cbc With Differential Ord2 HCT 39.4 % 01/21/2018 Cbc With Differential Ord2 Lymph% 26.9 % 01/21/2018 Cbc With Differential Ord2 MCV 99.5 fl 01/21/2018 Cbc With Differential Ord2 [place]% 13.0 % 01/21/2018 Cbc With Differential Ord2 MCH 32.3 pg 01/21/2018 Cbc With Differential Ord2 Eos% 3.9 % 01/21/2018 Cbc With Differential Ord2 MCHC 32.5 pg 01/21/2018 Cbc With Differential Ord2 PLT 147 K/ul 01/21/2018 Cbc With Differential Ord2 Baso% 0.2 % 01/21/2018 Cbc With Differential Ord2 RDW 13.0 % 01/21/2018 Cbc With Differential Ord2 Neut ABS# 3.14 K/ul 01/21/2018 Cbc With Differential Ord2 Lymph ABS# 1.51 K/ul 01/21/2018 Cbc With Differential Ord2 [place] ABS# 0.7 K/ul 01/21/2018 Cbc With Differential Ord2 Eos ABS# 0.2 K/ul 01/21/2018 Cbc With Differential Ord2 Baso ABS# 0.0 K/ul 01/21/2018 %Hba1C Rtj963 % HbA1c 06082-5 5.9 % 01/21/2018 %Hba1C Txi023 Gluc Ave 123 mg/dL 01/21/2018 Tsh Ord6 TSH (3rd IS) 1.96 uIU/mL 01/21/2018 Comp Metabolic Vvc032 NA 139 mEq/L 01/21/2018 Comp Metabolic Oai956 K 4.2 mEq/L 01/21/2018 Comp Metabolic Zxd280 CL 106 mEq/L 01/21/2018 Comp Metabolic Spv260 CO2 26.0 mEq/L 01/21/2018 Comp Metabolic Xof580 AN ION GAP 11 01/21/2018 Comp Metabolic Xir729 GL UCOSE 102 mg/dL 01/21/2018 Comp Metabolic Hdo814 Cr eat 1.6 mg/dL 01/21/2018 Comp Metabolic Wqu272 eG FR 47 ml/min/1.73m2 01/21 Comp Metabolic Bhf037 BUN 23 mg/dL 01/21/2018 Comp Metabolic Nha431 B/ C Ratio 14.6 Ratio 01/21/2018 Comp Metabolic Ekr601 CA LCIUM 9.6 mg/dL 01/21/2018 Comp Metabolic Mqd582 AL K PHOS 61 U/L 01/21/2018 Comp Metabolic Qwr713 T(SGOT) 15 U/L 01/21/2018 Comp Metabolic Pbi207 AL T(SGPT) 10 U/L 01/21/2018 Comp Metabolic Mnb500 BI LI T 0.5 mg/dL 01/21/2018 Comp Metabolic Zmh240 AL BUMIN 3.6 g/dL 01/21/2018 Comp Metabolic Xfl440 TP RO 6.7 g/dL 01/21/2018 Comp Metabolic Zts252 GL OB 3.1 g/dL 01/21/2018 Comp Metabolic Fnv894 A/ G Ratio 1.2 Ratio 01/21/2018 Comp Metabolic Pyu134 Os mo 281 mOsmo 01/21/2018 Comp Metabolic Okd544 NA 140 mEq/L 10/30/2017 Comp Metabolic Bvp068 K 4.6 mEq/L 10/30/2017 Comp Metabolic Vai415 CL 106 mEq/L 10/30/2017 Comp Metabolic Bpj679 CO2 24.0 mEq/L 10/30/2017 Comp Metabolic Uwf256 AN ION GAP 15 10/30/2017 Comp Metabolic Ser901 GL UCOSE 126 mg/dL 10/30/2017 Comp Metabolic Nfa752 Cr eat 1.4 mg/dL 10/30/2017 Comp Metabolic Fdy247 eG FR 53 ml/min/1.73m2 10/30 Comp Metabolic Hly734 BUN 22 mg/dL 10/30/2017 Comp Metabolic Xow096 B/ C Ratio 15.6 Ratio 10/30/2017 Comp Metabolic Sqz563 CA LCIUM 9.7 mg/dL 10/30/2017 Comp Metabolic Hlm649 AL K PHOS 70 U/L 10/30/2017 Comp Metabolic Eyn578 T(SGOT) 18 U/L 10/30/2017 Comp Metabolic Szp673 AL T(SGPT) 16 U/L 10/30/2017 Comp Metabolic Llv448 BI LI T 0.4 mg/dL 10/30/2017 Comp Metabolic Cgz870 AL BUMIN 3.6 g/dL 10/30/2017 Comp Metabolic Wca183 TP RO 6.6 g/dL 10/30/2017 Comp Metabolic Axn182 GL OB 3.0 g/dL 10/30/2017 Comp Metabolic Atr994 A/ G Ratio 1.2 Ratio 10/30/2017 Comp Metabolic Gcj402 Os mo 284 mOsmo 10/30/2017 Cbc With Differential Ord2 WBC 5.60 K/ul 10/30/2017 Cbc With Differential Ord2 RBC 4.04 M/ul 10/30/2017 Cbc With Differential Ord2 HGB 13.5 g/dl 10/30/2017 Cbc With Differential Ord2 Neut% 54.5 % 10/30/2017 Cbc With Differential Ord2 HCT 38.6 % 10/30/2017 Cbc With Differential Ord2 Lymph% 25.5 % 10/30/2017 Cbc With Differential Ord2 MCV 95.5 fl 10/30/2017 Cbc With Differential Ord2 [place]% 15.5 % 10/30/2017 Cbc With Differential Ord2 MCH 33.4 pg 10/30/2017 Cbc With Differential Ord2 Eos% 4.3 % 10/30/2017 Cbc With Differential Ord2 MCHC 35.0 pg 10/30/2017 Cbc With Differential Ord2 PLT 88 K/ul 10/30/2017 Cbc With Differential Ord2 Baso% 0.2 % 10/30/2017 Cbc With Differential Ord2 RDW 14.2 % 10/30/2017 Cbc With Differential Ord2 Neut ABS# 3.05 K/ul 10/30/2017 Cbc With Differential Ord2 Lymph ABS# 1.43 K/ul 10/30/2017 Cbc With Differential Ord2 [place] ABS# 0.9 K/ul 10/30/2017 Cbc With Differential Ord2 Eos ABS# 0.2 K/ul 10/30/2017 Cbc With Differential Ord2 Baso ABS# 0.0 K/ul 10/30/2017 Vitamin D 25 Oh Aty4774 VITAMIN D, 25 HYDROXY 22.30 ng/mL 10/30/2017 %Hba1C Irb114 % HbA1c 76512-6 6.9 % 10/30/2017 %Hba1C Bgs400 Gluc Ave 151 mg/dL 10/30/2017 Cbc With Differential Ord2 WBC 5.16 K/ul 04/25/2017 Cbc With Differential Ord2 RBC 4.27 M/ul 04/25/2017 Cbc With Differential Ord2 HGB 13.9 g/dl 04/25/2017 Cbc With Differential Ord2 HCT 40.7 % 04/25/2017 Cbc With Differential Ord2 Neut% 52.9 % 04/25/2017 Cbc With Differential Ord2 Lymph% 31.2 % 04/25/2017 Cbc With Differential Ord2 MCV 95.3 fl 04/25/2017 Cbc With Differential Ord2 MCH 32.6 pg 04/25/2017 Cbc With Differential Ord2 [place]% 12.8 % 04/25/2017 Cbc With Differential Ord2 MCHC 34.2 pg 04/25/2017 Cbc With Differential Ord2 Eos% 2.9 % 04/25/2017 Cbc With Differential Ord2 Baso% 0.2 % 04/25/2017 Cbc With Differential Ord2 PLT 92 K/ul 04/25/2017 Cbc With Differential Ord2 RDW 14.0 % 04/25/2017 Cbc With Differential Ord2 Neut ABS# 2.73 K/ul 04/25/2017 Cbc With Differential Ord2 Lymph ABS# 1.61 K/ul 04/25/2017 Cbc With Differential Ord2 [place] ABS# 0.7 K/ul 04/25/2017 Cbc With Differential Ord2 Eos ABS# 0.2 K/ul 04/25/2017 Cbc With Differential Ord2 Baso ABS# 0.0 K/ul 04/25/2017 %Hba1C Wtu338 % HbA1c 97669-1 6.1 % 04/25/2017 %Hba1C Mdg431 Gluc Ave 128 mg/dL 04/25/2017 Tsh Ord6 hTSH II 1.39 uIU/mL 04/25/2017 Lipid Ord30 CHOL 126 mg/dL 04/25/2017 Lipid Ord30 HDL 37.0 mg/dl 04/25/2017 Lipid Ord30 TRIG 77 mg/dL 04/25/2017 Lipid Ord30 LDL 74 mg/dL 04/25/2017 Lipid Ord30 C/HDL 3.4 Ratio 04/25/2017 Comp Metabolic Inv246 NA 139 mEq/L 04/25/2017 Comp Metabolic Epk202 K 4.2 mEq/L 04/25/2017 Comp Metabolic Com210 CL 106 mEq/L 04/25/2017 Comp Metabolic Uar997 CO2 24.0 mEq/L 04/25/2017 Comp Metabolic Flu655 AN ION GAP 13 04/25/2017 Comp Metabolic Mjq337 GL UCOSE 105 mg/dL 04/25/2017 Comp Metabolic Dzr928 Cr eat 1.6 mg/dL 04/25/2017 Comp Metabolic Cwr313 eG FR 46 ml/min/1.73m2 04/25 Comp Metabolic Naf224 BUN 21 mg/dL 04/25/2017 Comp Metabolic Tpj782 B/ C Ratio 13.2 Ratio 04/25/2017 Comp Metabolic Tfk270 CA LCIUM 9.5 mg/dL 04/25/2017 Comp Metabolic Gtg122 AL K PHOS 43 U/L 04/25/2017 Comp Metabolic Ybl788 T(SGOT) 17 U/L 04/25/2017 Comp Metabolic Gqa956 AL T(SGPT) 16 U/L 04/25/2017 Comp Metabolic Xtv074 BI LI T 0.5 mg/dL 04/25/2017 Comp Metabolic Pir603 AL BUMIN 3.5 g/dL 04/25/2017 Comp Metabolic Vzt859 TP RO 6.6 g/dL 04/25/2017 Comp Metabolic Gtr540 GL OB 3.2 g/dL 04/25/2017 Comp Metabolic Cln620 A/ G Ratio 1.1 Ratio 04/25/2017 Comp Metabolic Jsi941 Os mo 281 mOsmo 04/25/2017 Lipid Ord30 [...] 31.8 pg 10/30/2016 Cbc With Differential Ord2 [place]% 15.2 % 10/30/2016 Cbc With Differential Ord2 [...] 1.79 K/ul 10/30/2016 Cbc With Differential Ord2 [place] ABS# 0.8 K/ul 10/30/2016 Cbc With Differential Ord2 Eos ABS# 0.1 K/ul 10/30/2016 Cbc With Differential Ord2 Baso ABS# 0.0 K/ul 10/30/2016 %Hba1C Kuk066 % HbA1c 87724-3 6.0 % 10/30/2016 %Hba1C Juu708 Gluc Ave 126 mg/dL 10/30/2016 Comp Metabolic Dsn091 NA 135 mEq/L 10/30/2016 Comp Metabolic Oal903 K 4.4 mEq/L 10/30/2016 Comp Metabolic Ypl939 CL 102 mEq/L 10/30/2016 Comp Metabolic Rsm102 CO2 27.0 mEq/L 10/30/2016 Comp Metabolic Coe968 AN ION GAP 10 10/30/2016 Comp Metabolic Tyf082 GL UCOSE 101 mg/dL 10/30/2016 Comp Metabolic Nwo262 Cr eat 1.6 mg/dL 10/30/2016 Comp Metabolic Vtf031 eG FR 47 ml/min/1.73m2 10/30 Comp Metabolic Fxi113 BUN 19 mg/dL 10/30/2016 Comp Metabolic Iym761 B/ C Ratio 12.3 Ratio 10/30/2016 Comp Metabolic Iye547 CA LCIUM 10.2 mg/dL 10/30/2016 Comp Metabolic Xxj552 AL K PHOS 54 U/L 10/30/2016 Comp Metabolic Yte113 T(SGOT) 20 U/L 10/30/2016 Comp Metabolic Jin647 AL T(SGPT) 16 U/L 10/30/2016 Comp Metabolic Ftx841 BI LI T 0.7 mg/dL 10/30/2016 Comp Metabolic Yrb741 AL BUMIN 3.7 g/dL 10/30/2016 Comp Metabolic Rib495 TP RO 7.3 g/dL 10/30/2016 Comp Metabolic Mzu242 GL OB 3.6 g/dL 10/30/2016 Comp Metabolic Fip371 A/ G Ratio 1.0 Ratio 10/30/2016 Comp Metabolic Jpp728 Os mo 272 mOsmo 10/30/2016 Tsh Ord6 [...] PRSV 4 VA L 3 YRS+ CPT-4: 13843 06/21/2017 ADMIN INFLUENZA VIRU S VAC CPT-4: G0008 06/21/2017 Vital Signs Date Vital 08/30/2018 Blood Pressure 1: 124/70 Code: 8480-6 BMI: 31.6 Code: 66283-3 Heart Rate 1: 64 bpm Height: 5'8" SpO2: 98% Weight: 208 lbs 04/30/2018 Blood Pressure 1: 126/78 Code: 8480-6 BMI: 32.5 Code: 42473-2 Heart Rate 1: 65 bpm Height: 5'8" SpO2: 94% Weight: 214 lbs 10/30/2017 Blood Pressure 1: 142/84 Code: 8480-6 BMI: 32.8 Code: 38388-5 Heart Rate 1: 70 bpm Height: 5'8" SpO2: 96% Weight: 216 lbs 09/13/2017 Blood Pressure 1: 136/82 Code: 8480-6 BMI: 33.0 Code: 72975-6 Heart Rate 1: 80 bpm Height: 5'8" SpO2: 97% Weight: 217 lbs 04/30/2017 Blood Pressure 1: 120/70 Code: 8480-6 BMI: 32.2 Code: 81764-8 Heart Rate 1: 60 bpm Height: 5'8" SpO2: 98% Weight: 212 lbs 10/30/2016 Blood Pressure 1: 120/66 Code: 8480-6 BMI: 31.8 Code: 77147-2 Heart Rate 1: 58 bpm Height: 5'8" SpO2: 98% Weight: 209 lbs 07/31/2016 Blood Pressure 1: 140/66 Code: 8480-6 BMI: 31.6 Code: 52664-4 Heart Rate 1: 63 bpm Height: 5'8" [...] 09/13/2017 None low back pain Quality [place] 09/13/2017 None low back pain Onset and [...] as an adult 07/31/2016 None Advance Directives Advance Directives Present Encounters Encounter Performer Loca tion Codes Date 52850 EST. PATIENT, LEVEL III Diagnosis: Type 2 diabetes mellitus without complications[ICD10: E11.9] Diagnosis: Essential (primary) hypertension[ICD10: I10] Roberta Chiang MD [facility] CPT-4: 70629 08/30/2018 25552 EST. PATIENT, LEVEL IV Diagnosis: Type 2 diabetes mellitus without complications[ICD10: E11.9] Diagnosis: Essential (primary) hypertension[ICD10: I10] Diagnosis: Age-related osteoporosis without current pathological fracture[ICD10: M81.0] Roberta Chiang MD [facility] CPT-4: 93631 04/30/2018 96598 EST. PATIENT, LEVEL IV Diagnosis: Type 2 diabetes mellitus without complications[ICD10: E11.9] Diagnosis: Essential (primary) hypertension[ICD10: I10] Diagnosis: Vitamin D deficiency, unspecified[ICD10: E55.9] Diagnosis: Low back pain[ICD10: M54.5] Roberta Chiang MD [facility] CPT-4: 21644 10/30/2017 30645 EST. PATIENT, LEVEL III Diagnosis: Low back pain[ICD10: M54.5] Roberta Chiang MD, [facility] CPT-4: 13799 09/13/2017 08634 EST. PATIENT, LEVEL III Diagnosis: Type 2 diabetes mellitus without complications[ICD10: E11.9] Diagnosis: Essential (primary) hypertension[ICD10: I10] Roberta Chiang MD, [facility] CPT-4: 22648 04/30/2017 50185 EST. PATIENT, LEVEL III Diagnosis: Type 2 diabetes mellitus without complications[ICD10: E11.9] Diagnosis: Essential (primary) hypertension[ICD10: I10] Roberta Chiang MD, [facility] CPT-4: 01444 10/30/2016 ([id number]) OFFICE VISI T, NEW - LEVEL 4 Diagnosis: Essential (primary) hypertension[ICD10: I10] Diagnosis: Type 2 diabetes mellitus without complications[ICD10: E11.9] Roberta Chiang MD, [facility] CPT-4: 75120 07/31/2016 Plan of Care Planned Activity Notes C odes Status Date Visit Plan: Hypertension - well con trolled [...] controlled. 08/30/2018 [facility] [phone] [facility] [place] ([facility]) Moderate 08/30/2018 Patient Education: Patient [...] injections. 04/30/2018 Appointment[facility] [phone] [facility] [place] (15 min) Moderate 04/30/2018 Patient Education: Patient [...] improve. 10/30/2017 Appointment: [facility] [phone] [facility] (30 min) Complex 10/30/2017 Patient [...] improve. 09/13/2017 App[facility]ment: [facility] [phone] [facility] [place] (15 min) Moderate 09/13/2017 [...] home. 04/30/2017 Appointment: Roberta Mahmood WPtel: [phone] [facility] (30 min) Complex 04/30/2017 Patient Education: Patient Medication Summary Completed 04/30/2017 Patient Education: Obesity Completed 04/30/2017 Patient Education: Hypertension Completed 04/30/2017 Visit Plan: Hypertension - well [place] - continue with current medications, continue with [...] controlled. 10/30/2016 App[facility]ment: [facility] [phone] [facility] ([facility] min) Complex 10/30/2016 Patient [...] less controlled. 07/31/2016 App[facility]ment: [facility] [phone] [facility] New Patient 07/31/2016 Patient Education: Patient Medication Summary Completed 07/31/2016 Appointment: Mamta Medrano WPtel: [address] [place], [place] [phone] New Patient 07/25/2016 Instructions Comment . Hypertension [...]
--- OUTSIDE RECORDS SUMMARY | 2019-08-28 11:58 | XMS REPORT | CCD ---
Author Ace Koch Organization Bianca Chiang MD, [facility] Address [address] [place] [address] Phone Care Team Providers Care Photographer News Name Role Phone PP Unavailable CCM Unavailable Summary Purpose Interface Exchange Insurance Providers Payer name Policy type / Coverage type Covered republican ID Effective Begin Date Effective End Date WPS Medicare Part B Medicare Part B [id number] 2018 [facility] [id number] Un known Family history Father Diagnosis Age [...] RxNorm: 7052 07/31/2016 No Inactive Date Active DGLBMPK-CQW-ROI REDU CTASE INHIBITORS Unknown 07/31/2016 No Inactive [...] Vitamin D2 50,000 un it capsule RxNorm: 702858 1 Capsule(s) PO QW ta ke with daily vitamin d3 2000 units 11/13/2017 02/10/2018 Inactive Vitamin D2 50,000 un it capsule RxNorm: 511527 1 Capsule(s) PO QW ta ke with daily vitamin d3 2000 units 11/13/2017 11/12/2017 Inactive metoprolol tartrate 50 mg tablet RxNorm: 980616 Tablet(s) PO TAKE ONE TABLET BY MOUTH TWICE A DAY 10/30/2017 04/27/2018 Inactive prednisone 20 mg tablet RxNorm: 886257 2 Tablet(s) PO daily 09/18/2017 09/17/2017 Inactive prednisone 20 mg tablet RxNorm: 918976 2 Tablet(s) PO daily 09/18/2017 09/22/2017 Inactive cyclobenzaprine 5 mg tablet RxNorm: 606641 1 Tablet(s) PO TID as needed muscle spasms 09/13/2017 09/17/2017 Inactive metoprolol tartrate 25 mg tablet RxNorm: 567046 TAKE ONE TABLET BY [facility] TWICE A DAY 08/03/2017 10/29/2017 Inactive metoprolol tartrate 25 mg tablet RxNorm: 035479 1 Tablet(s) PO BID 05/02/2017 07/30/2017 Inactive aspirin 81 mg chewab le tablet RxNorm: 202419 2 Tablet(s) PO daily 04/30/2017 05/29/2017 Inactive metoprolol tartrate 50 mg tablet RxNorm: 813856 1/2 Tablet(s) PO BID No Start Date Active Vitamin D3 2,000 uni t capsule RxNorm: 531677 1 Capsule(s) PO daily No Start Date Active calcium 600 mg capsule RxNorm: 1 Capsule(s) PO daily No Start Date Active Prevacid 15 mg capsu le,delayed release RxNorm: 378289 1 Capsule(s) PO daily No Start Date Active tramadol 50 mg tablet RxNorm: 659777 1 -2 Tablet(s) PO Q4H as needed No Start Date Active ramipril 2.5 mg tablet RxNorm: 458962 1 Tablet(s) PO daily No Start Date 07/31/2016 Inactive aspirin 325 mg tablet RxNorm: 095794 1 Tablet(s) PO daily No Start Date 04/27/2017 Inactive metoprolol tartrate 25 mg tablet RxNorm: 322394 1 Tablet(s) PO BID No Start Date [...] Code Item Item Code Result Date B12 Kzg476 B12 781.00 pg/ml 02/06/2018 Folate Ord36 Folate 14.87 ng/mL 02/06/2018 Parathyroid Hormone Che966 PTH 39.10 pg/ml 01/21/2018 Vitamin D 25 Oh Eqv2287 VITAMIN D, 25 HYDROXY 40.13 ng/mL 01/21/2018 [...] 32.3 pg 01/21/2018 Cbc With Differential Ord2 [place]linger% 13.0 % 01/21/2018 Cbc With Differential Ord2 [...] 1.51 K/ul 01/21/2018 Cbc With Differential Ord2 [place] ABS# 0.7 K/ul 01/21/2018 Cbc With Differential Ord2 Eos ABS# 0.2 K/ul 01/21/2018 Cbc With Differential Ord2 Baso ABS# 0.0 K/ul 01/21/2018 %Hba1C Irw389 % HbA1c 03819-2 5.9 % 01/21/2018 %Hba1C Cgg929 Gluc Ave 123 mg/dL 01/21/2018 Tsh Ord6 TSH (3rd IS) 1.96 uIU/mL 01/21/2018 Comp Metabolic Xau673 NA 139 mEq/L 01/21/2018 Comp Metabolic Yzo642 K 4.2 mEq/L 01/21/2018 Comp Metabolic Pcy134 CL 106 mEq/L 01/21/2018 Comp Metabolic Mwu354 CO2 26.0 mEq/L 01/21/2018 Comp Metabolic Tis596 AN ION GAP 11 01/21/2018 Comp Metabolic Lid733 GL UCOSE 102 mg/dL 01/21/2018 Comp Metabolic Rtw020 Cr eat 1.6 mg/dL 01/21/2018 Comp Metabolic Hdf605 eG FR 47 ml/min/1.73m2 01/21 Comp Metabolic Uol143 BUN 23 mg/dL 01/21/2018 Comp Metabolic Pgr412 B/ C Ratio 14.6 Ratio 01/21/2018 Comp Metabolic Tza482 CA LCIUM 9.6 mg/dL 01/21/2018 Comp Metabolic Nvu376 AL K PHOS 61 U/L 01/21/2018 Comp Metabolic Mlj806 T(SGOT) 15 U/L 01/21/2018 Comp Metabolic Ppu989 AL T(SGPT) 10 U/L 01/21/2018 Comp Metabolic Xqo098 BI LI T 0.5 mg/dL 01/21/2018 Comp Metabolic Crh666 AL BUMIN 3.6 g/dL 01/21/2018 Comp Metabolic Jkj365 TP RO 6.7 g/dL 01/21/2018 Comp Metabolic Lsp616 GL OB 3.1 g/dL 01/21/2018 Comp Metabolic Nxf612 A/ G Ratio 1.2 Ratio 01/21/2018 Comp Metabolic Gcf070 Os mo 281 mOsmo 01/21/2018 Comp Metabolic Aju900 NA 140 mEq/L 10/30/2017 Comp Metabolic Ava213 K 4.6 mEq/L 10/30/2017 Comp Metabolic Qxb511 CL 106 mEq/L 10/30/2017 Comp Metabolic Zbi073 CO2 24.0 mEq/L 10/30/2017 Comp Metabolic Ist373 AN ION GAP 15 10/30/2017 Comp Metabolic Upi056 GL UCOSE 126 mg/dL 10/30/2017 Comp Metabolic Mkm639 Cr eat 1.4 mg/dL 10/30/2017 Comp Metabolic Lbr121 eG FR 53 ml/min/1.73m2 10/30 Comp Metabolic Zgh355 BUN 22 mg/dL 10/30/2017 Comp Metabolic Vta560 B/ C Ratio 15.6 Ratio 10/30/2017 Comp Metabolic Ajy279 CA LCIUM 9.7 mg/dL 10/30/2017 Comp Metabolic Hnc080 AL K PHOS 70 U/L 10/30/2017 Comp Metabolic Udi255 T(SGOT) 18 U/L 10/30/2017 Comp Metabolic Ggb912 AL T(SGPT) 16 U/L 10/30/2017 Comp Metabolic Edt161 BI LI T 0.4 mg/dL 10/30/2017 Comp Metabolic Atm815 AL BUMIN 3.6 g/dL 10/30/2017 Comp Metabolic Wsn025 TP RO 6.6 g/dL 10/30/2017 Comp Metabolic Rwl345 GL OB 3.0 g/dL 10/30/2017 Comp Metabolic Pna768 A/ G Ratio 1.2 Ratio 10/30/2017 Comp Metabolic Mpj853 Os mo 284 mOsmo 10/30/2017 Cbc With [...] 33.4 pg 10/30/2017 Cbc With Differential Ord2 Bollinger% 15.5 % 10/30/2017 Cbc With Differential Ord2 [...] 1.43 K/ul 10/30/2017 Cbc With Differential Ord2 [place] ABS# 0.9 K/ul 10/30/2017 Cbc With Differential Ord2 Eos ABS# 0.2 K/ul 10/30/2017 Cbc With Differential Ord2 Baso ABS# 0.0 K/ul 10/30/2017 Vitamin D 25 Oh Qcd4476 VITAMIN D, 25 HYDROXY 22.30 ng/mL 10/30/2017 %Hba1C Eoy875 % HbA1c 95070-7 6.9 % 10/30/2017 %Hba1C Rie129 Gluc Ave 151 mg/dL 10/30/2017 Cbc With [...] 32.6 pg 04/25/2017 Cbc With Differential Ord2 [place]% 12.8 % 04/25/2017 Cbc With Differential Ord2 [...] 1.61 K/ul 04/25/2017 Cbc With Differential Ord2 [place] ABS# 0.7 K/ul 04/25/2017 Cbc With Differential Ord2 Eos ABS# 0.2 K/ul 04/25/2017 Cbc With Differential Ord2 Baso ABS# 0.0 K/ul 04/25/2017 %Hba1C Uef044 % HbA1c 15029-6 6.1 % 04/25/2017 %Hba1C Twt844 Gluc Ave 128 mg/dL 04/25/2017 Tsh Ord6 hTSH II 1.39 uIU/mL 04/25/2017 Lipid Ord30 CHOL 126 mg/dL 04/25/2017 Lipid Ord30 HDL 37.0 mg/dl 04/25/2017 Lipid Ord30 TRIG 77 mg/dL 04/25/2017 Lipid Ord30 LDL 74 mg/dL 04/25/2017 Lipid Ord30 C/HDL 3.4 Ratio 04/25/2017 Comp Metabolic Puz959 NA 139 mEq/L 04/25/2017 Comp Metabolic Rly342 K 4.2 mEq/L 04/25/2017 Comp Metabolic Qbn670 CL 106 mEq/L 04/25/2017 Comp Metabolic Ibx787 CO2 24.0 mEq/L 04/25/2017 Comp Metabolic Ige587 AN ION GAP 13 04/25/2017 Comp Metabolic Xes232 GL UCOSE 105 mg/dL 04/25/2017 Comp Metabolic Jyh005 Cr eat 1.6 mg/dL 04/25/2017 Comp Metabolic Fpu536 eG FR 46 ml/min/1.73m2 04/25 Comp Metabolic Suu222 BUN 21 mg/dL 04/25/2017 Comp Metabolic Rbb312 B/ C Ratio 13.2 Ratio 04/25/2017 Comp Metabolic Fsl175 CA LCIUM 9.5 mg/dL 04/25/2017 Comp Metabolic Kdu427 AL K PHOS 43 U/L 04/25/2017 Comp Metabolic Oxc332 T(SGOT) 17 U/L 04/25/2017 Comp Metabolic Tnv887 AL T(SGPT) 16 U/L 04/25/2017 Comp Metabolic Nfs710 BI LI T 0.5 mg/dL 04/25/2017 Comp Metabolic Bfq087 AL BUMIN 3.5 g/dL 04/25/2017 Comp Metabolic Zby250 TP RO 6.6 g/dL 04/25/2017 Comp Metabolic Ugc036 GL OB 3.2 g/dL 04/25/2017 Comp Metabolic Xly617 A/ G Ratio 1.1 Ratio 04/25/2017 Comp Metabolic Rhw818 Os mo 281 mOsmo 04/25/2017 Lipid Ord30 [...] 31.8 pg 10/30/2016 Cbc With Differential Ord2 [place]% 15.2 % 10/30/2016 Cbc With Differential Ord2 [...] 1.79 K/ul 10/30/2016 Cbc With Differential Ord2 [place] ABS# 0.8 K/ul 10/30/2016 Cbc With Differential Ord2 Eos ABS# 0.1 K/ul 10/30/2016 Cbc With Differential Ord2 Baso ABS# 0.0 K/ul 10/30/2016 %Hba1C Xdc035 % HbA1c 42516-8 6.0 % 10/30/2016 %Hba1C Inl875 Gluc Ave 126 mg/dL 10/30/2016 Comp Metabolic Pjy942 NA 135 mEq/L 10/30/2016 Comp Metabolic Iov919 K 4.4 mEq/L 10/30/2016 Comp Metabolic Yhh921 CL 102 mEq/L 10/30/2016 Comp Metabolic Xdj786 CO2 27.0 mEq/L 10/30/2016 Comp Metabolic Yyu514 AN ION GAP 10 10/30/2016 Comp Metabolic Olh074 GL UCOSE 101 mg/dL 10/30/2016 Comp Metabolic Ahn345 Cr eat 1.6 mg/dL 10/30/2016 Comp Metabolic Mse524 eG FR 47 ml/min/1.73m2 10/30 Comp Metabolic Owc622 BUN 19 mg/dL 10/30/2016 Comp Metabolic Ujr882 B/ C Ratio 12.3 Ratio 10/30/2016 Comp Metabolic Jsa245 CA LCIUM 10.2 mg/dL 10/30/2016 Comp Metabolic Mhz152 AL K PHOS 54 U/L 10/30/2016 Comp Metabolic Qzf241 T(SGOT) 20 U/L 10/30/2016 Comp Metabolic Epq840 AL T(SGPT) 16 U/L 10/30/2016 Comp Metabolic Wtv953 BI LI T 0.7 mg/dL 10/30/2016 Comp Metabolic Ugq020 AL BUMIN 3.7 g/dL 10/30/2016 Comp Metabolic Tvd610 TP RO 7.3 g/dL 10/30/2016 Comp Metabolic Zbf159 GL OB 3.6 g/dL 10/30/2016 Comp Metabolic Ezb163 A/ G Ratio 1.0 Ratio 10/30/2016 Comp Metabolic Mzt859 Os mo 272 mOsmo 10/30/2016 Tsh Ord6 [...] PRSV 4 VA L 3 YRS+ CPT-4: 73486 06/21/2017 ADMIN INFLUENZA VIRU S VAC CPT-4: G0008 06/21/2017 Vital Signs Date Vital 08/30/2018 Blood Pressure 1: 124/70 Code: 8480-6 BMI: 31.6 Code: 63671-2 Heart Rate 1: 64 bpm Height: 5'8" SpO2: 98% Weight: 208 lbs 04/30/2018 Blood Pressure 1: 126/78 Code: 8480-6 BMI: 32.5 Code: 58796-1 Heart Rate 1: 65 bpm Height: 5'8" SpO2: 94% Weight: 214 lbs 10/30/2017 Blood Pressure 1: 142/84 Code: 8480-6 BMI: 32.8 Code: 47778-7 Heart Rate 1: 70 bpm Height: 5'8" SpO2: 96% Weight: 216 lbs 09/13/2017 Blood Pressure 1: 136/82 Code: 8480-6 BMI: 33.0 Code: 65436-7 Heart Rate 1: 80 bpm Height: 5'8" SpO2: 97% Weight: 217 lbs 04/30/2017 Blood Pressure 1: 120/70 Code: 8480-6 BMI: 32.2 Code: 29295-1 Heart Rate 1: 60 bpm Height: 5'8" SpO2: 98% Weight: 212 lbs 10/30/2016 Blood Pressure 1: 120/66 Code: 8480-6 BMI: 31.8 Code: 90178-0 Heart Rate 1: 58 bpm Height: 5'8" SpO2: 98% Weight: 209 lbs 07/31/2016 Blood Pressure 1: 140/66 Code: 8480-6 BMI: 31.6 Code: 10410-1 Heart Rate 1: 63 bpm Height: 5'8" [...] 09/13/2017 None low back pain Quality ac [place] 09/13/2017 None low back pain Onset and [...] Encounters Encounter Performer Loca tion Codes Date 84876 EST. PATIENT, LEVEL III Diagnosis: Type 2 diabetes mellitus without complications[ICD10: E11.9] Diagnosis: Essential (primary) hypertension[ICD10: I10] Roberta Chiang MD, [facility] CPT-4: 93986 08/30/2018 38059 EST. PATIENT, LEVEL IV Diagnosis: Type 2 diabetes mellitus without complications[ICD10: E11.9] Diagnosis: Essential (primary) hypertension[ICD10: I10] Diagnosis: Age-related osteoporosis without current pathological fracture[ICD10: M81.0] Roberta Chiang MD, [facility] CPT-4: 64237 04/30/2018 98675 EST. PATIENT, LEVEL IV Diagnosis: Type 2 diabetes mellitus without complications[ICD10: E11.9] Diagnosis: Essential (primary) hypertension[ICD10: I10] Diagnosis: Vitamin D deficiency, unspecified[ICD10: E55.9] Diagnosis: Low back pain[ICD10: M54.5] Roberta Chiang MD, [facility] CPT-4: 66079 10/30/2017 24744 EST. PATIENT, LEVEL III Diagnosis: Low back pain[ICD10: M54.5] Roberta Chiang MD, [facility] CPT-4: 95003 09/13/2017 92219 EST. PATIENT, LEVEL III Diagnosis: Type 2 diabetes mellitus without complications[ICD10: E11.9] Diagnosis: Essential (primary) hypertension[ICD10: I10] Roberta Chiang MD, [facility] CPT-4: 87368 04/30/2017 85703 EST. PATIENT, LEVEL III Diagnosis: Type 2 diabetes mellitus without complications[ICD10: E11.9] Diagnosis: Essential (primary) hypertension[ICD10: I10] Roberta Chiang MD, [facility] CPT-4: 07922 10/30/2016 (96559) OFFICE VISI T, NEW - LEVEL 4 Diagnosis: Essential (primary) hypertension[ICD10: I10] Diagnosis: Type 2 diabetes mellitus without complications[ICD10: E11.9] Roberta Chiang MD, [facility] CPT-4: 26297 07/31/2016 Plan of Care Planned Activity Notes C odes Status Date Patient Education: Patient Medication Summary Completed 02/20/2019 Care Plan: Comp Metabolic Pending 02/20/2019 Care Plan: Cbc With Differential Pending 02/20/2019 Care Plan: Tsh Pending 02/20/2019 Care Plan: Lipid Pending 02/20/2019 Care Plan: %Hba1C RODOLFO C : 63579-6 Pending 02/20/2019 Visit Plan: Hypertension - well [...] less controlled. 08/30/2018 Appointment: Roberta Mahmood WPtel: [phone] [facility] (15 min) Moderate 08/30/2018 Patient Education: Patient [...] Prolia injections. 04/30/2018 Appointment: Roberta Mahmood WPtel: [phone] [facility] (15 min) Moderate 04/30/2018 Patient Education: Patient [...] not improve. 10/30/2017 [phone] ([facility] min) Complex 10/30/2017 Patient Education: Patient [...] improve. 09/13/2017 Appointment: [phone] (15 min) Moderate 09/13/2017 Patient Education: Patient [...] home. 04/30/2017 Appointment: [phone] (30 min) Complex 04/30/2017 Patient Education: Patient [...] controlled. 10/30/2016 Appointment: [phone] (30 min) Complex 10/30/2016 Patient Education: Patient [...] less controlled. 07/31/2016 Appointment: Timoteo [phone] [facility] New Patient 07/31/2016 Patient Education: Patient Medication Summary Completed 07/31/2016 App[facility]ment: Mam[facility] Med[phone] New Patient 07/25/2016 Instructions Comment . Hypertension [...]
--- OUTSIDE RECORDS SUMMARY | 2019-08-28 11:59 | XMS REPORT | CCD ---
Author Ace Koch Organization Bianca Chiang MD, [facility] Address [address] [place] [address] Phone Care Team Providers Care Arch Support Technician Name Role Phone PP Unavailable CCM Unavailable Summary Purpose Interface Exchange Insurance Providers Payer name Policy type / Coverage type Covered constitution party ID Effective Begin Date Effective End Date WPS Medicare Part B Medicare Part B [id number] Unknown Unknown [facility] icare Part B [id number] Unknown Unk nown Family history Father Diagnosis Age At Onset Heart Attack Unknown Cancer Unknown Mother Diagnosis Age At Onset Heart Attack Unknown Osteoporosis Unknown Arthritis Unknown Hypertension Unknown Social History Social History Element Codes Description Effective Dates Marital status Unknown S ana maria 07/31/2016 Number of children Unknown 0 07/31/2016 Employment Unknown Retir ed 07/31/2016 Allergies, Adverse Reactions, Alerts Allergies, Adverse Reactions, Alerts data not found Past Medical History Illness Codes Condition Status Onset Date Resolved Date Low back pain ICD-9: 724.2 ICD-10: M54.5 Active 09/13/2017 Unknown Encounter for immuni zation ICD-9: V04.81 ICD-10: Z23 Active 06/21/2017 Unknown Diabetes Unknown Active 04/30/2017 Unknow n Hypertension Unknown Active 04/30/2017 Unknow n Essential (primary) hypertension ICD-9: 401.9 ICD-10: I10 Active 07/30/2016 Unknown Type 2 diabetes belle itus without complications ICD-9: 250.00 ICD-10: E11.9 Active 07/30/2016 Unknown Problems Condition Codes Effectiv e Dates Condition Status Low back pain ICD-9: 724.2 ICD-10: M54.5 09/13/2017 Active Encounter for immuni zation ICD-9: V04.81 ICD-10: Z23 06/21/2017 Active Diabetes Unknown 04/30/2017 Active Hypertension Unknown 04/30/2017 Active Essential (primary) hypertension ICD-9: 401.9 ICD-10: I10 07/30/2016 Active Type 2 diabetes belle itus without complications ICD-9: 250.00 ICD-10: E11.9 07/30/2016 Active Medications Medication Codes Instruc tions Start Date Stop Date Sta Fill Instructions prednisone 20 mg tablet RxNorm: 306413 2 Tablet(s) PO daily 09/18/2017 09/17/2017 Inactive prednisone 20 mg tablet RxNorm: 076132 2 Tablet(s) PO daily 09/18/2017 09/22/2017 Inactive cyclobenzaprine 5 mg tablet RxNorm: 014582 1 Tablet(s) PO TID as needed muscle spasms 09/13/2017 09/17/2017 Inactive metoprolol tartrate 25 mg tablet RxNorm: 678205 TAKE ONE TABLET BY [facility] TWICE A DAY 08/03/2017 01/29/2018 Ac tive metoprolol tartrate 25 mg tablet RxNorm: 417337 1 Tablet(s) PO BID 05/02/2017 07/30/2017 Inactive aspirin 81 mg chewab le tablet RxNorm: 286620 2 Tablet(s) PO daily 04/30/2017 05/29/2017 Inactive ramipril 2.5 mg tablet RxNorm: 242651 1 Tablet(s) PO daily No Start Date 07/31/2016 Inactive aspirin 325 mg tablet RxNorm: 026770 1 Tablet(s) PO daily No Start Date 04/27/2017 Inactive metoprolol tartrate 25 mg tablet RxNorm: 005621 1 Tablet(s) PO BID No Start Date 05/01/2017 Inactive Medication Administered No Medication Administered data Immunizations Vaccine Codes Date Status Influenza CVX: 141 06/21 completed Assessments Condition Codes Effectiv e Dates Low back pain ICD-10: M54.5 ICD-9: 724.2 09/13/2017 Encounter for immunization ICD-10: Z 23 ICD-9: V04.81 06/21/2017 Type 2 diabetes mellitus without complications ICD-10: E11.9 ICD-9: 250.00 04/30/2017 Essential (primary) hypertension ICD -10: I10 ICD-9: 401.9 04/30/2017 Reason For Visit Reason For Visit Effective Dates Notes low back pain 09/13/2017 vaccination against influenza 06/21/2017 hypertension 04/30/2017 hypertension 10/30/2016 hypertension 07/31/2016 Results Observation Observation Code Item Item Code Result Date Cbc With Differential Ord2 WBC 5.16 K/ul [...] 32.6 pg 04/25/2017 Cbc With Differential Ord2 [place]% 12.8 % 04/25/2017 Cbc With Differential Ord2 MCHC 34.2 pg 04/25/2017 Cbc With Differential Ord2 Eos% 2.9 % 04/25/2017 Cbc With Differential Ord2 PLT 92 K/ul 04/25/2017 Cbc With Differential Ord2 Baso% 0.2 % 04/25/2017 Cbc With Differential Ord2 Neut ABS# 2.73 K/ul 04/25/2017 Cbc With Differential Ord2 RDW 14.0 % 04/25/2017 Cbc With Differential Ord2 Lymph ABS# 1.61 K/ul 04/25/2017 Cbc With Differential Ord2 [place] ABS# 0.7 K/ul 04/25/2017 Cbc With Differential Ord2 Eos ABS# 0.2 K/ul 04/25/2017 Cbc With Differential Ord2 Baso ABS# 0.0 K/ul 04/25/2017 %Hba1C Kkc104 % HbA1c 27658-5 6.1 % 04/25/2017 %Hba1C Pnf888 Gluc Ave 128 mg/dL 04/25/2017 Tsh Ord6 hTSH II 1.39 uIU/mL 04/25/2017 Lipid Ord30 CHOL 126 mg/dL 04/25/2017 Lipid Ord30 HDL 37.0 mg/dl 04/25/2017 Lipid Ord30 TRIG 77 mg/dL 04/25/2017 Lipid Ord30 LDL 74 mg/dL 04/25/2017 Lipid Ord30 C/HDL 3.4 Ratio 04/25/2017 Comp Metabolic Nmj392 NA 139 mEq/L 04/25/2017 Comp Metabolic Gvf723 K 4.2 mEq/L 04/25/2017 Comp Metabolic Ygc904 CL 106 mEq/L 04/25/2017 Comp Metabolic Tcm455 CO2 24.0 mEq/L 04/25/2017 Comp Metabolic Cqi419 AN ION GAP 13 04/25/2017 Comp Metabolic Xvu920 GL UCOSE 105 mg/dL 04/25/2017 Comp Metabolic Ads469 Cr eat 1.6 mg/dL 04/25/2017 Comp Metabolic Jer045 eG FR 46 ml/min/1.73m2 04/25 Comp Metabolic Niy477 BUN 21 mg/dL 04/25/2017 Comp Metabolic Uyj098 B/ C Ratio 13.2 Ratio 04/25/2017 Comp Metabolic Wbz984 CA LCIUM 9.5 mg/dL 04/25/2017 Comp Metabolic Aoe252 AL K PHOS 43 U/L 04/25/2017 Comp Metabolic Dfu867 T(SGOT) 17 U/L 04/25/2017 Comp Metabolic Mgg414 AL T(SGPT) 16 U/L 04/25/2017 Comp Metabolic Qwr321 BI LI T 0.5 mg/dL 04/25/2017 Comp Metabolic Nrv013 AL BUMIN 3.5 g/dL 04/25/2017 Comp Metabolic Asq477 TP RO 6.6 g/dL 04/25/2017 Comp Metabolic Hht011 GL OB 3.2 g/dL 04/25/2017 Comp Metabolic Sdp047 A/ G Ratio 1.1 Ratio 04/25/2017 Comp Metabolic Jce680 Os mo 281 mOsmo 04/25/2017 Lipid Ord30 [...] 31.8 pg 10/30/2016 Cbc With Differential Ord2 [place]% 15.2 % 10/30/2016 Cbc With Differential Ord2 MCHC 34.1 pg 10/30/2016 Cbc With Differential Ord2 Eos% 2.2 % 10/30/2016 Cbc With Differential Ord2 Baso% 0.4 % 10/30/2016 Cbc With Differential Ord2 PLT 111 K/ul 10/30/2016 Cbc With Differential Ord2 Neut ABS# 2.28 K/ul 10/30/2016 Cbc With Differential Ord2 RDW 13.8 % 10/30/2016 Cbc With Differential Ord2 Lymph ABS# 1.79 K/ul 10/30/2016 Cbc With Differential Ord2 [place] ABS# 0.8 K/ul 10/30/2016 Cbc With Differential Ord2 Eos ABS# 0.1 K/ul 10/30/2016 Cbc With Differential Ord2 Baso ABS# 0.0 K/ul 10/30/2016 %Hba1C Axr040 % HbA1c 43396-8 6.0 % 10/30/2016 %Hba1C Zuy114 Gluc Ave 126 mg/dL 10/30/2016 Comp Metabolic Zis663 NA 135 mEq/L 10/30/2016 Comp Metabolic Mdp425 K 4.4 mEq/L 10/30/2016 Comp Metabolic Orx736 CL 102 mEq/L 10/30/2016 Comp Metabolic Uvl624 CO2 27.0 mEq/L 10/30/2016 Comp Metabolic Ani340 AN ION GAP 10 10/30/2016 Comp Metabolic Ksf206 GL UCOSE 101 mg/dL 10/30/2016 Comp Metabolic Nxx750 Cr eat 1.6 mg/dL 10/30/2016 Comp Metabolic Fed569 eG FR 47 ml/min/1.73m2 10/30 Comp Metabolic Wur819 BUN 19 mg/dL 10/30/2016 Comp Metabolic Qml973 B/ C Ratio 12.3 Ratio 10/30/2016 Comp Metabolic Rqu652 CA LCIUM 10.2 mg/dL 10/30/2016 Comp Metabolic Oxx516 AL K PHOS 54 U/L 10/30/2016 Comp Metabolic Qwf244 T(SGOT) 20 U/L 10/30/2016 Comp Metabolic Ait687 AL T(SGPT) 16 U/L 10/30/2016 Comp Metabolic Mof811 BI LI T 0.7 mg/dL 10/30/2016 Comp Metabolic Ubb970 AL BUMIN 3.7 g/dL 10/30/2016 Comp Metabolic Min260 TP RO 7.3 g/dL 10/30/2016 Comp Metabolic Qtf305 GL OB 3.6 g/dL 10/30/2016 Comp Metabolic Paw576 A/ G Ratio 1.0 Ratio 10/30/2016 Comp Metabolic Spg845 Os mo 272 mOsmo 10/30/2016 Tsh Ord6 hTSH II 1.03 uIU/mL 10/30/2016 Review of Systems System Result Effective Dates Constitutional No recent illness 09/13/2017 Constitutional No [...] Result Effective Dates Notes Full Exam - Orthopedics Constitutional general appearance [...] lips 04/30/2017 None Full Exam - General 1995 Ears/Nose/Throat oral cavity/pharynx/larynx Overall: oral mucosa clear [...] PRSV 4 VA L 3 YRS+ CPT-4: 08274 06/21/2017 ADMIN INFLUENZA VIRU S VAC CPT-4: G0008 06/21/2017 Vital Signs Date Vital 09/13/2017 Blood Pressure 1: 136/82 Code: 8480-6 BMI: 33.0 Code: 34579-9 Heart Rate 1: 80 bpm Height: 5'8" SpO2: 97% Weight: 217 lbs 04/30/2017 Blood Pressure 1: 120/70 Code: 8480-6 BMI: 32.2 Code: 48779-5 Heart Rate 1: 60 bpm Height: 5'8" SpO2: 98% Weight: 212 lbs 10/30/2016 Blood Pressure 1: 120/66 Code: 8480-6 BMI: 31.8 Code: 15647-1 Heart Rate 1: 58 bpm Height: 5'8" SpO2: 98% Weight: 209 lbs 07/31/2016 Blood Pressure 1: 140/66 Code: 8480-6 BMI: 31.6 Code: 94794-1 Heart Rate 1: 63 bpm Height: 5'8" SpO2: 95% Weight: 208 lbs Functional Status No Functional Status data History of Present Illness Symptom Name Status Resu lt Effective Date Notes low back pain Location o n both sides 09/13/2017 None low back pain Quality ac cec[place] 09/13/2017 None low back pain Onset and [...] Directives Advance Directives Present Encounters Encounter Performer Deb taylor Codes Date 15707 EST. PATIENT, LEVEL III Diagnosis: Low back pain[ICD10: M54.5] [facility] CPT-4: 80225 09/13/2017 27519 EST. PATIENT, LEVEL III Diagnosis: Type 2 diabetes mellitus without complications[ICD10: E11.9] Diagnosis: Essential (primary) hypertension[ICD10: I10] [facility] CPT-4: 93314 04/30/2017 65714 EST. PATIENT, LEVEL III Diagnosis: Type 2 diabetes mellitus without complications[ICD10: E11.9] Diagnosis: Essential (primary) hypertension[ICD10: I10] [facility] CPT-4: 67759 10/30/2016 ([id number]) OFFICE VISI T, NEW - LEVEL 4 Diagnosis: Essential (primary) hypertension[ICD10: I10] Diagnosis: Type 2 diabetes mellitus without complications[ICD10: E11.9] [facility] CPT-4: 02483 07/31/2016 Plan of Care Planned Activity Notes C odes Status Date Visit Plan: Low back pain- the tabby ent was instructed in appropriate posture, need for weight loss to alleviate abdominal obesity that is worsening the patient's back pain.. The pt is to use prn antiinflammatories to manage acute pain. The patient is to call the office if the pain is worsening or does not improve. 09/13/2017 Appointment: Roberta Mahmood WPtel: [address] [place], [place] [address] (15 min) Moderate 09/13/2017 Patient Education: Patient [...] at home. 04/30/2017 Appointment: Roberta Mahmood WPtel: [facility] (30 min) Complex 04/30/2017 Patient Education: Patient [...] less controlled. 10/30/2016 Appointment: Roberta Mahmood WPtel: [facility] (30 min) Complex 10/30/2016 Patient Education: Patient [...] less controlled. 07/31/2016 Appointment: Roberta Mahmood WPtel: [facility] [place] New Patient 07/31/2016 Patient Education: Patient Medication Summary Completed 07/31/2016 Appointment: Mamta Medrano WPtel: [phone] New Patient 07/25/2016 Instructions Comment . Hypertension [...]
--- OUTSIDE RECORDS SUMMARY | 2019-08-28 11:59 | XMS REPORT | CCD ---
Author Ace Koch Organization Bianca Chiang MD, [facility] Address [address] [place] [address] Phone Care Team Providers Care Chore Tender Name Role Phone PP Unavailable CCM Unavailable Summary Purpose Interface Exchange Insurance Providers Payer name Policy type / Coverage type Covered alliance party ID Effective Begin Date Effective End Date WPS Medicare Part B Medicare Part B [id number] 2018 Unknown [facility] Part B [id number] Un known Family history Father Diagnosis Age [...] RxNorm: 7052 07/31/2016 No Inactive Date Active [id number] REDU CTASE INHIBITORS Unknown 07/31/2016 No Inactive [...] Vitamin D2 50,000 un it capsule RxNorm: 639327 1 Capsule(s) PO QW ta ke with daily vitamin d3 2000 units 11/13/2017 02/10/2018 Inactive Vitamin D2 50,000 un it capsule RxNorm: 985633 1 Capsule(s) PO QW ta ke with daily vitamin d3 2000 units 11/13/2017 11/12/2017 Inactive metoprolol tartrate 50 mg tablet RxNorm: 158830 Tablet(s) PO TAKE ONE TABLET BY MOUTH TWICE A DAY 10/30/2017 04/27/2018 Inactive prednisone 20 mg tablet RxNorm: 581079 2 Tablet(s) PO daily 09/18/2017 09/17/2017 Inactive prednisone 20 mg tablet RxNorm: 809485 2 Tablet(s) PO daily 09/18/2017 09/22/2017 Inactive cyclobenzaprine 5 mg tablet RxNorm: 728644 1 Tablet(s) PO TID as needed muscle spasms 09/13/2017 09/17/2017 Inactive metoprolol tartrate 25 mg tablet RxNorm: 955193 TAKE ONE TABLET BY [facility] TWICE A DAY 08/03/2017 10/29/2017 Inactive metoprolol tartrate 25 mg tablet RxNorm: 759697 1 Tablet(s) PO BID 05/02/2017 07/30/2017 Inactive aspirin 81 mg chewab le tablet RxNorm: 941780 2 Tablet(s) PO daily 04/30/2017 05/29/2017 Inactive metoprolol tartrate 50 mg tablet RxNorm: 807256 1/2 Tablet(s) PO BID No Start Date Active Vitamin D3 2,000 uni t capsule RxNorm: 150165 1 Capsule(s) PO daily No Start Date Active calcium 600 mg capsule RxNorm: 1 Capsule(s) PO daily No Start Date Active Prevacid 15 mg capsu le,delayed release RxNorm: 086085 1 Capsule(s) PO daily No Start Date Active tramadol 50 mg tablet RxNorm: 776368 1 -2 Tablet(s) PO Q4H as needed No Start Date Active ramipril 2.5 mg tablet RxNorm: 346188 1 Tablet(s) PO daily No Start Date 07/31/2016 Inactive aspirin 325 mg tablet RxNorm: 697524 1 Tablet(s) PO daily No Start Date 04/27/2017 Inactive metoprolol tartrate 25 mg tablet RxNorm: 322522 1 Tablet(s) PO BID No Start Date [...] Code Item Item Code Result Date B12 Yjv168 B12 781.00 pg/ml 02/06/2018 Folate Ord36 Folate 14.87 ng/mL 02/06/2018 Parathyroid Hormone Eav828 PTH 39.10 pg/ml 01/21/2018 Vitamin D 25 Oh Zbi1140 VITAMIN D, 25 HYDROXY 40.13 ng/mL 01/21/2018 [...] 32.3 pg 01/21/2018 Cbc With Differential Ord2 [place]% 13.0 % 01/21/2018 Cbc With Differential Ord2 [...] 1.51 K/ul 01/21/2018 Cbc With Differential Ord2 [place] ABS# 0.7 K/ul 01/21/2018 Cbc With Differential Ord2 Eos ABS# 0.2 K/ul 01/21/2018 Cbc With Differential Ord2 Baso ABS# 0.0 K/ul 01/21/2018 %Hba1C Qbp246 % HbA1c 38112-2 5.9 % 01/21/2018 %Hba1C Ojm524 Gluc Ave 123 mg/dL 01/21/2018 Tsh Ord6 TSH (3rd IS) 1.96 uIU/mL 01/21/2018 Comp Metabolic Dso544 NA 139 mEq/L 01/21/2018 Comp Metabolic Bmc596 K 4.2 mEq/L 01/21/2018 Comp Metabolic Vvz233 CL 106 mEq/L 01/21/2018 Comp Metabolic Slk970 CO2 26.0 mEq/L 01/21/2018 Comp Metabolic Ibu820 AN ION GAP 11 01/21/2018 Comp Metabolic Mnm644 GL UCOSE 102 mg/dL 01/21/2018 Comp Metabolic Njn111 Cr eat 1.6 mg/dL 01/21/2018 Comp Metabolic Aeb501 eG FR 47 ml/min/1.73m2 01/21 Comp Metabolic Jhs122 BUN 23 mg/dL 01/21/2018 Comp Metabolic Ktd575 B/ C Ratio 14.6 Ratio 01/21/2018 Comp Metabolic Pbq646 CA LCIUM 9.6 mg/dL 01/21/2018 Comp Metabolic Npq626 AL K PHOS 61 U/L 01/21/2018 Comp Metabolic Xeh354 T(SGOT) 15 U/L 01/21/2018 Comp Metabolic Ysj325 AL T(SGPT) 10 U/L 01/21/2018 Comp Metabolic Gmm395 BI LI T 0.5 mg/dL 01/21/2018 Comp Metabolic Rfl769 AL BUMIN 3.6 g/dL 01/21/2018 Comp Metabolic Hms370 TP RO 6.7 g/dL 01/21/2018 Comp Metabolic Tek934 GL OB 3.1 g/dL 01/21/2018 Comp Metabolic Arl719 A/ G Ratio 1.2 Ratio 01/21/2018 Comp Metabolic Vam377 Os mo 281 mOsmo 01/21/2018 Comp Metabolic Uuj486 NA 140 mEq/L 10/30/2017 Comp Metabolic Ybj382 K 4.6 mEq/L 10/30/2017 Comp Metabolic Edx107 CL 106 mEq/L 10/30/2017 Comp Metabolic Rxb901 CO2 24.0 mEq/L 10/30/2017 Comp Metabolic Ebv126 AN ION GAP 15 10/30/2017 Comp Metabolic Cxy159 GL UCOSE 126 mg/dL 10/30/2017 Comp Metabolic Adm433 Cr eat 1.4 mg/dL 10/30/2017 Comp Metabolic Tew559 eG FR 53 ml/min/1.73m2 10/30 Comp Metabolic Vbq065 BUN 22 mg/dL 10/30/2017 Comp Metabolic Tho720 B/ C Ratio 15.6 Ratio 10/30/2017 Comp Metabolic Qrt066 CA LCIUM 9.7 mg/dL 10/30/2017 Comp Metabolic Vig339 AL K PHOS 70 U/L 10/30/2017 Comp Metabolic Xdj259 T(SGOT) 18 U/L 10/30/2017 Comp Metabolic Rqr106 AL T(SGPT) 16 U/L 10/30/2017 Comp Metabolic Tjp871 BI LI T 0.4 mg/dL 10/30/2017 Comp Metabolic Irm879 AL BUMIN 3.6 g/dL 10/30/2017 Comp Metabolic Ggp719 TP RO 6.6 g/dL 10/30/2017 Comp Metabolic Hfg594 GL OB 3.0 g/dL 10/30/2017 Comp Metabolic Ajm898 A/ G Ratio 1.2 Ratio 10/30/2017 Comp Metabolic Rqo426 Os mo 284 mOsmo 10/30/2017 Cbc With [...] 33.4 pg 10/30/2017 Cbc With Differential Ord2 [place]% 15.5 % 10/30/2017 Cbc With Differential Ord2 [...] 1.43 K/ul 10/30/2017 Cbc With Differential Ord2 [place] ABS# 0.9 K/ul 10/30/2017 Cbc With Differential Ord2 Eos ABS# 0.2 K/ul 10/30/2017 Cbc With Differential Ord2 Baso ABS# 0.0 K/ul 10/30/2017 Vitamin D 25 Oh Tff4397 VITAMIN D, 25 HYDROXY 22.30 ng/mL 10/30/2017 %Hba1C Dxm741 % HbA1c 06088-8 6.9 % 10/30/2017 %Hba1C Pdg429 Gluc Ave 151 mg/dL 10/30/2017 Cbc With [...] 32.6 pg 04/25/2017 Cbc With Differential Ord2 [place]% 12.8 % 04/25/2017 Cbc With Differential Ord2 [...] 1.61 K/ul 04/25/2017 Cbc With Differential Ord2 [place] ABS# 0.7 K/ul 04/25/2017 Cbc With Differential Ord2 Eos ABS# 0.2 K/ul 04/25/2017 Cbc With Differential Ord2 Baso ABS# 0.0 K/ul 04/25/2017 %Hba1C Syb994 % HbA1c 43843-4 6.1 % 04/25/2017 %Hba1C Sib680 Gluc Ave 128 mg/dL 04/25/2017 Tsh Ord6 hTSH II 1.39 uIU/mL 04/25/2017 Lipid Ord30 CHOL 126 mg/dL 04/25/2017 Lipid Ord30 HDL 37.0 mg/dl 04/25/2017 Lipid Ord30 TRIG 77 mg/dL 04/25/2017 Lipid Ord30 LDL 74 mg/dL 04/25/2017 Lipid Ord30 C/HDL 3.4 Ratio 04/25/2017 Comp Metabolic Rdw971 NA 139 mEq/L 04/25/2017 Comp Metabolic Kgn814 K 4.2 mEq/L 04/25/2017 Comp Metabolic Mcj586 CL 106 mEq/L 04/25/2017 Comp Metabolic Ysi403 CO2 24.0 mEq/L 04/25/2017 Comp Metabolic Ave318 AN ION GAP 13 04/25/2017 Comp Metabolic Blt122 GL UCOSE 105 mg/dL 04/25/2017 Comp Metabolic Mby326 Cr eat 1.6 mg/dL 04/25/2017 Comp Metabolic Puu474 eG FR 46 ml/min/1.73m2 04/25 Comp Metabolic Kin709 BUN 21 mg/dL 04/25/2017 Comp Metabolic Dxr944 B/ C Ratio 13.2 Ratio 04/25/2017 Comp Metabolic Kyr896 CA LCIUM 9.5 mg/dL 04/25/2017 Comp Metabolic Guq065 AL K PHOS 43 U/L 04/25/2017 Comp Metabolic Tfs824 T(SGOT) 17 U/L 04/25/2017 Comp Metabolic Rtk693 AL T(SGPT) 16 U/L 04/25/2017 Comp Metabolic Ksd649 BI LI T 0.5 mg/dL 04/25/2017 Comp Metabolic Upu383 AL BUMIN 3.5 g/dL 04/25/2017 Comp Metabolic Wmt258 TP RO 6.6 g/dL 04/25/2017 Comp Metabolic Xbh572 GL OB 3.2 g/dL 04/25/2017 Comp Metabolic Bim823 A/ G Ratio 1.1 Ratio 04/25/2017 Comp Metabolic Ike304 Os mo 281 mOsmo 04/25/2017 Lipid Ord30 [...] 31.8 pg 10/30/2016 Cbc With Differential Ord2 [place]% 15.2 % 10/30/2016 Cbc With Differential Ord2 [...] 1.79 K/ul 10/30/2016 Cbc With Differential Ord2 [place] ABS# 0.8 K/ul 10/30/2016 Cbc With Differential Ord2 Eos ABS# 0.1 K/ul 10/30/2016 Cbc With Differential Ord2 Baso ABS# 0.0 K/ul 10/30/2016 %Hba1C Vdu715 % HbA1c 25345-7 6.0 % 10/30/2016 %Hba1C Lhc313 Gluc Ave 126 mg/dL 10/30/2016 Comp Metabolic Rsw982 NA 135 mEq/L 10/30/2016 Comp Metabolic Brs354 K 4.4 mEq/L 10/30/2016 Comp Metabolic Ppr984 CL 102 mEq/L 10/30/2016 Comp Metabolic Raj373 CO2 27.0 mEq/L 10/30/2016 Comp Metabolic Izo629 AN ION GAP 10 10/30/2016 Comp Metabolic Kvn184 GL UCOSE 101 mg/dL 10/30/2016 Comp Metabolic Wrt195 Cr eat 1.6 mg/dL 10/30/2016 Comp Metabolic Mqe487 eG FR 47 ml/min/1.73m2 10/30 Comp Metabolic Ibj721 BUN 19 mg/dL 10/30/2016 Comp Metabolic Jmo291 B/ C Ratio 12.3 Ratio 10/30/2016 Comp Metabolic Ezz655 CA LCIUM 10.2 mg/dL 10/30/2016 Comp Metabolic Qml263 AL K PHOS 54 U/L 10/30/2016 Comp Metabolic Wni035 T(SGOT) 20 U/L 10/30/2016 Comp Metabolic Bho969 AL T(SGPT) 16 U/L 10/30/2016 Comp Metabolic Tuf657 BI LI T 0.7 mg/dL 10/30/2016 Comp Metabolic Wfg853 AL BUMIN 3.7 g/dL 10/30/2016 Comp Metabolic Mlo474 TP RO 7.3 g/dL 10/30/2016 Comp Metabolic Ctn651 GL OB 3.6 g/dL 10/30/2016 Comp Metabolic Hvc150 A/ G Ratio 1.0 Ratio 10/30/2016 Comp Metabolic Cxb936 Os mo 272 mOsmo 10/30/2016 Tsh Ord6 [...] PRSV 4 VA L 3 YRS+ CPT-4: 96231 06/21/2017 ADMIN INFLUENZA VIRU S VAC CPT-4: G0008 06/21/2017 Vital Signs Date Vital 08/30/2018 Blood Pressure 1: 124/70 Code: 8480-6 BMI: 31.6 Code: 34381-8 Heart Rate 1: 64 bpm Height: 5'8" SpO2: 98% Weight: 208 lbs 04/30/2018 Blood Pressure 1: 126/78 Code: 8480-6 BMI: 32.5 Code: 83850-6 Heart Rate 1: 65 bpm Height: 5'8" SpO2: 94% Weight: 214 lbs 10/30/2017 Blood Pressure 1: 142/84 Code: 8480-6 BMI: 32.8 Code: 74566-4 Heart Rate 1: 70 bpm Height: 5'8" SpO2: 96% Weight: 216 lbs 09/13/2017 Blood Pressure 1: 136/82 Code: 8480-6 BMI: 33.0 Code: 43964-4 Heart Rate 1: 80 bpm Height: 5'8" SpO2: 97% Weight: 217 lbs 04/30/2017 Blood Pressure 1: 120/70 Code: 8480-6 BMI: 32.2 Code: 68956-5 Heart Rate 1: 60 bpm Height: 5'8" SpO2: 98% Weight: 212 lbs 10/30/2016 Blood Pressure 1: 120/66 Code: 8480-6 BMI: 31.8 Code: 15757-2 Heart Rate 1: 58 bpm Height: 5'8" SpO2: 98% Weight: 209 lbs 07/31/2016 Blood Pressure 1: 140/66 Code: 8480-6 BMI: 31.6 Code: 85432-3 Heart Rate 1: 63 bpm Height: 5'8" [...] 09/13/2017 None low back pain Quality ac [place] 09/13/2017 None low back pain Onset and [...] Encounters Encounter Performer Loca tion Codes Date 79383 EST. PATIENT, LEVEL III Diagnosis: Type 2 diabetes mellitus without complications[ICD10: E11.9] Diagnosis: Essential (primary) hypertension[ICD10: I10] Roberta Chiang MD [facility] CPT-4: 11773 08/30/2018 17422 EST. PATIENT, LEVEL IV Diagnosis: Type 2 diabetes mellitus without complications[ICD10: E11.9] Diagnosis: Essential (primary) hypertension[ICD10: I10] Diagnosis: Age-related osteoporosis without current pathological fracture[ICD10: M81.0] Roberta Chiang MD [facility] CPT-4: 21623 04/30/2018 84608 EST. PATIENT, LEVEL IV Diagnosis: Type 2 diabetes mellitus without complications[ICD10: E11.9] Diagnosis: Essential (primary) hypertension[ICD10: I10] Diagnosis: Vitamin D deficiency, unspecified[ICD10: E55.9] Diagnosis: Low back pain[ICD10: M54.5] Roberta Chiang MD [facility] CPT-4: 43219 10/30/2017 04141 EST. PATIENT, LEVEL III Diagnosis: Low back pain[ICD10: M54.5] Roberta Chiang MD, [facility] CPT-4: 87805 09/13/2017 20038 EST. PATIENT, LEVEL III Diagnosis: Type 2 diabetes mellitus without complications[ICD10: E11.9] Diagnosis: Essential (primary) hypertension[ICD10: I10] Roberta Chiang MD, [facility] CPT-4: 80199 04/30/2017 44589 EST. PATIENT, LEVEL III Diagnosis: Type 2 diabetes mellitus without complications[ICD10: E11.9] Diagnosis: Essential (primary) hypertension[ICD10: I10] Roberta Chiang MD, [facility] CPT-4: 82734 10/30/2016 (54482) OFFICE VISI T, NEW - LEVEL 4 Diagnosis: Essential (primary) hypertension[ICD10: I10] Diagnosis: Type 2 diabetes mellitus without complications[ICD10: E11.9] Roberta Chiang MD, [facility] CPT-4: 24993 07/31/2016 Plan of Care Planned Activity Notes [...] controlled. 08/30/2018 Appointment: [facility] [phone] [facility] [place] [place] (15 min) Moderate 08/30/2018 Patient Education: [...] injections. 04/30/2018 Appointment: [facility] [phone] [facility] [place] [place] (15 min) Moderate 04/30/2018 Patient Education: [...] improve. 10/30/2017 Appointment: [facility] [phone] [facility] (30 min) Complex 10/30/2017 Patient Education: Patient [...] improve. 09/13/2017 Appointment: [facility]ood [facility] [phone] [facility] [place] [place] (15 min) Moderate 09/13/2017 Patient Education: [...] home. 04/30/2017 Appointment: Roberta Mahmood WPtel: [phone] [facility] (30 min) Complex 04/30/2017 Patient Education: [...] controlled. 10/30/2016 Appointment: [facility] Mah[facility]ood [facility] [phone] [facility] [place] (30 min) Complex 10/30/2016 Patient Education: Patient [...] less controlled. 07/31/2016 Appointment: [facility] [phone] [facility] New Patient 07/31/2016 Patient Education: Patient Medication Summary Completed 07/31/2016 Appointment: Mamta Medrano WPtel: [address] [place], [place] [phone] New Patient 07/25/2016 Instructions Comment . Hypertension [...]
--- OUTSIDE RECORDS SUMMARY | 2019-08-28 11:59 | XMS REPORT | CCD ---
Author Ace Koch Organization Bianca Chiang MD, [facility] Address [address] [place] [address] Phone Care Team Providers Care Bicycle Designer Name Role Phone PP Unavailable CCM Unavailable Summary Purpose Interface Exchange Insurance Providers Payer name Policy type / Coverage type Covered alliance party ID Effective Begin Date Effective End Date WPS Medicare Part B Medicare Part B [id number] Unknown Unknown [facility] icare Part B [id number] Unknown Unk nown Family history Father Diagnosis [...] Fill Instructions prednisone 20 mg tablet RxNorm: 318222 2 Tablet(s) PO daily 09/18/2017 09/17/2017 Inactive prednisone 20 mg tablet RxNorm: 621196 2 Tablet(s) PO daily 09/18/2017 09/22/2017 Inactive cyclobenzaprine 5 mg tablet RxNorm: 839536 1 Tablet(s) PO TID as needed muscle spasms 09/13/2017 09/17/2017 Inactive metoprolol tartrate 25 mg tablet RxNorm: 378686 TAKE ONE TABLET BY [facility] TWICE A DAY 08/03/2017 01/29/2018 Ac tive metoprolol tartrate 25 mg tablet RxNorm: 459580 1 Tablet(s) PO BID 05/02/2017 07/30/2017 Inactive aspirin 81 mg chewab le tablet RxNorm: 004211 2 Tablet(s) PO daily 04/30/2017 05/29/2017 Inactive ramipril 2.5 mg tablet RxNorm: 581601 1 Tablet(s) PO daily No Start Date 07/31/2016 Inactive aspirin 325 mg tablet RxNorm: 003774 1 Tablet(s) PO daily No Start Date 04/27/2017 Inactive metoprolol tartrate 25 mg tablet RxNorm: 517807 1 Tablet(s) PO BID No Start Date [...] 32.6 pg 04/25/2017 Cbc With Differential Ord2 [place]% 12.8 % 04/25/2017 Cbc With Differential Ord2 [...] 1.61 K/ul 04/25/2017 Cbc With Differential Ord2 [place] ABS# 0.7 K/ul 04/25/2017 Cbc With Differential Ord2 Eos ABS# 0.2 K/ul 04/25/2017 Cbc With Differential Ord2 Baso ABS# 0.0 K/ul 04/25/2017 %Hba1C Meo685 % HbA1c 22922-5 6.1 % 04/25/2017 %Hba1C Qxc494 Gluc Ave 128 mg/dL 04/25/2017 Tsh Ord6 hTSH II 1.39 uIU/mL 04/25/2017 Lipid Ord30 CHOL 126 mg/dL 04/25/2017 Lipid Ord30 HDL 37.0 mg/dl 04/25/2017 Lipid Ord30 TRIG 77 mg/dL 04/25/2017 Lipid Ord30 LDL 74 mg/dL 04/25/2017 Lipid Ord30 C/HDL 3.4 Ratio 04/25/2017 Comp Metabolic Akk786 NA 139 mEq/L 04/25/2017 Comp Metabolic Cku176 K 4.2 mEq/L 04/25/2017 Comp Metabolic Leg356 CL 106 mEq/L 04/25/2017 Comp Metabolic Iwl789 CO2 24.0 mEq/L 04/25/2017 Comp Metabolic Huw659 AN ION GAP 13 04/25/2017 Comp Metabolic Klb872 GL UCOSE 105 mg/dL 04/25/2017 Comp Metabolic Gxg109 Cr eat 1.6 mg/dL 04/25/2017 Comp Metabolic Xgn374 eG FR 46 ml/min/1.73m2 04/25 Comp Metabolic Cdv989 BUN 21 mg/dL 04/25/2017 Comp Metabolic Wlv007 B/ C Ratio 13.2 Ratio 04/25/2017 Comp Metabolic Wfe026 CA LCIUM 9.5 mg/dL 04/25/2017 Comp Metabolic Mzr258 AL K PHOS 43 U/L 04/25/2017 Comp Metabolic Mbz972 T(SGOT) 17 U/L 04/25/2017 Comp Metabolic Oac273 AL T(SGPT) 16 U/L 04/25/2017 Comp Metabolic Eyn082 BI LI T 0.5 mg/dL 04/25/2017 Comp Metabolic Yey607 AL BUMIN 3.5 g/dL 04/25/2017 Comp Metabolic Iic044 TP RO 6.6 g/dL 04/25/2017 Comp Metabolic Quh404 GL OB 3.2 g/dL 04/25/2017 Comp Metabolic Xsh914 A/ G Ratio 1.1 Ratio 04/25/2017 Comp Metabolic Yaj305 Os mo 281 mOsmo 04/25/2017 Lipid Ord30 [...] 31.8 pg 10/30/2016 Cbc With Differential Ord2 [place]% 15.2 % 10/30/2016 Cbc With Differential Ord2 [...] 1.79 K/ul 10/30/2016 Cbc With Differential Ord2 [place] ABS# 0.8 K/ul 10/30/2016 Cbc With Differential Ord2 Eos ABS# 0.1 K/ul 10/30/2016 Cbc With Differential Ord2 Baso ABS# 0.0 K/ul 10/30/2016 %Hba1C Rnx963 % HbA1c 20019-4 6.0 % 10/30/2016 %Hba1C Exg786 Gluc Ave 126 mg/dL 10/30/2016 Comp Metabolic Lvk441 NA 135 mEq/L 10/30/2016 Comp Metabolic Bqd377 K 4.4 mEq/L 10/30/2016 Comp Metabolic Auo171 CL 102 mEq/L 10/30/2016 Comp Metabolic Ajm168 CO2 27.0 mEq/L 10/30/2016 Comp Metabolic Ilx286 AN ION GAP 10 10/30/2016 Comp Metabolic Fwl820 GL UCOSE 101 mg/dL 10/30/2016 Comp Metabolic Oih701 Cr eat 1.6 mg/dL 10/30/2016 Comp Metabolic Fdj861 eG FR 47 ml/min/1.73m2 10/30 Comp Metabolic Amf541 BUN 19 mg/dL 10/30/2016 Comp Metabolic Nrw189 B/ C Ratio 12.3 Ratio 10/30/2016 Comp Metabolic Vlb706 CA LCIUM 10.2 mg/dL 10/30/2016 Comp Metabolic Njc172 AL K PHOS 54 U/L 10/30/2016 Comp Metabolic Jbe654 T(SGOT) 20 U/L 10/30/2016 Comp Metabolic Ixt654 AL T(SGPT) 16 U/L 10/30/2016 Comp Metabolic Ftz168 BI LI T 0.7 mg/dL 10/30/2016 Comp Metabolic Oue959 AL BUMIN 3.7 g/dL 10/30/2016 Comp Metabolic Cjl608 TP RO 7.3 g/dL 10/30/2016 Comp Metabolic Jpu244 GL OB 3.6 g/dL 10/30/2016 Comp Metabolic Wfs989 A/ G Ratio 1.0 Ratio 10/30/2016 Comp Metabolic Hao883 Os mo 272 mOsmo 10/30/2016 Tsh Ord6 [...] PRSV 4 VA L 3 YRS+ CPT-4: 05489 06/21/2017 ADMIN INFLUENZA VIRU S VAC CPT-4: G0008 06/21/2017 Vital Signs Date Vital 09/13/2017 Blood Pressure 1: 136/82 Code: 8480-6 BMI: 33.0 Code: 21741-2 Heart Rate 1: 80 bpm Height: 5'8" SpO2: 97% Weight: 217 lbs 04/30/2017 Blood Pressure 1: 120/70 Code: 8480-6 BMI: 32.2 Code: 96703-5 Heart Rate 1: 60 bpm Height: 5'8" SpO2: 98% Weight: 212 lbs 10/30/2016 Blood Pressure 1: 120/66 Code: 8480-6 BMI: 31.8 Code: 71719-4 Heart Rate 1: 58 bpm Height: 5'8" SpO2: 98% Weight: 209 lbs 07/31/2016 Blood Pressure 1: 140/66 Code: 8480-6 BMI: 31.6 Code: 65229-0 Heart Rate 1: 63 bpm Height: 5'8" [...] Encounters Encounter Performer Deb taylor Codes Date 43702 EST. PATIENT, LEVEL III Diagnosis: Low back pain[ICD10: M54.5] [facility] CPT-4: 42378 09/13/2017 45989 EST. PATIENT, LEVEL III Diagnosis: Type 2 diabetes mellitus without complications[ICD10: E11.9] Diagnosis: Essential (primary) hypertension[ICD10: I10] [facility] CPT-4: 30288 04/30/2017 73251 EST. PATIENT, LEVEL III Diagnosis: Type 2 diabetes mellitus without complications[ICD10: E11.9] Diagnosis: Essential (primary) hypertension[ICD10: I10] [facility] CPT-4: 63956 10/30/2016 (10565) OFFICE [facility] - LEVEL 4 Diagnosis: Essential (primary) hypertension[ICD10: I10] Diagnosis: Type 2 diabetes mellitus without complications[ICD10: E11.9] [facility] CPT-4: 06433 07/31/2016 Plan of Care Planned Activity Notes C odes Status Date Appointment: Roberta Mahmood WPtel: [phone] [facility] (15 min) Moderate 09/13/2017 Patient Education: Patient Medication Summary Completed 09/13/2017 Appointment: Injection 06/21/2017 Patient Education: Patient Medication Summary Completed 06/21/2017 [facility]ment: [phone] [facility] ([facility] Complex 04/30/2017 Patient Education: Patient Medication Summary Completed 04/30/2017 Patient Education: Obesity Completed 04/30/2017 Patient Education: Hypertension Completed 04/30/2017 Appointment: [facility] [phone] [facility] ([facility] min) Complex 10/30/2016 Patient Education: Patient Medication Summary Completed 10/30/2016 Patient Education: Obesity Completed 10/30/2016 Patient Education: Hypertension Completed 10/30/2016 Appointment: Roberta Mahmood WPtel: [phone] [facility] [place] New Patient 07/31/2016 Patient Education: Patient Medication Summary Completed 07/31/2016 Appointment: Mamta Medrano WPtel: [address] [place], [place] [address] New Patient 07/25/2016 Instructions No Instructions
--- OUTSIDE RECORDS SUMMARY | 2019-08-28 11:59 | XMS REPORT | CCD ---
Author Ace Koch Organization Bianca Chiang MD, [facility] Address [address] [place] [address] Phone Care Team Providers Care Ditto Machine Operator Name Role Phone PP Unavailable CCM Unavailable Summary Purpose Interface Exchange Insurance Providers Payer name Policy type / Coverage type Covered republican ID Effective Begin Date Effective End Date WPS Medicare Part B Medicare Part B [id number] Unknown Unknown [facility] icare Part B [id number] Unknown Unk nown Family history Father Diagnosis [...] Codes Condition Status Onset Date Resolved Date Encounter for immuni zation ICD-9: V04.81 ICD-10: Z23 Active 06/21/2017 Unknown Diabetes Unknown Active 04/30/2017 Unknow n Hypertension Unknown Active 04/30/2017 Unknow n Essential (primary) hypertension ICD-9: 401.9 ICD-10: I10 Active 07/30/2016 Unknown Type 2 diabetes belle itus without complications ICD-9: 250.00 ICD-10: E11.9 Active 07/30/2016 Unknown Problems Condition Codes Effectiv e Dates Condition Status Encounter for immuni zation ICD-9: V04.81 ICD-10: Z23 06/21/2017 Active Diabetes Unknown 04/30/2017 Active Hypertension Unknown 04/30/2017 Active Essential (primary) hypertension ICD-9: 401.9 ICD-10: I10 07/30/2016 Active Type 2 diabetes belle itus without complications ICD-9: 250.00 ICD-10: E11.9 07/30/2016 Active Medications Medication Codes Instruc tions Start Date Stop Date Sta tus Fill Instructions prednisone 20 mg tablet RxNorm: 639628 2 Tablet(s) PO daily 09/18/2017 09/22/2017 Active prednisone 20 mg tablet RxNorm: 487339 2 Tablet(s) PO daily 09/18/2017 09/17/2017 Inactive cyclobenzaprine 5 mg tablet RxNorm: 874158 1 Tablet(s) PO TID as needed muscle spasms 09/13/2017 09/17/2017 Inactive metoprolol tartrate 25 mg tablet RxNorm: 992067 TAKE ONE TABLET BY [facility] TWICE A DAY 08/03/2017 01/29/2018 Ac tive metoprolol tartrate 25 mg tablet RxNorm: 118872 1 Tablet(s) PO BID 05/02/2017 07/30/2017 Inactive aspirin 81 mg chewab le tablet RxNorm: 206736 2 Tablet(s) PO daily 04/30/2017 05/29/2017 Inactive ramipril 2.5 mg tablet RxNorm: 910354 1 Tablet(s) PO daily No Start Date 07/31/2016 Inactive aspirin 325 mg tablet RxNorm: 207689 1 Tablet(s) PO daily No Start Date 04/27/2017 Inactive metoprolol tartrate 25 mg tablet RxNorm: 090248 1 Tablet(s) PO BID No Start Date 05/01/2017 Inactive Medication Administered No Medication Administered data Immunizations Vaccine Codes Date Status Influenza CVX: 141 06/21 completed Assessments Condition Codes Effectiv e Dates Encounter for immunization ICD-10: Z 23 ICD-9: V04.81 06/21/2017 Type 2 diabetes mellitus without complications ICD-10: E11.9 ICD-9: 250.00 04/30/2017 Essential (primary) hypertension ICD -10: I10 ICD-9: 401.9 04/30/2017 Reason For Visit Reason For Visit Effective Dates Notes vaccination against influenza 06/21/2017 hypertension 04/30/2017 hypertension [...] 32.6 pg 04/25/2017 Cbc With Differential Ord2 Perkins% 12.8 % 04/25/2017 Cbc With Differential Ord2 [...] 1.61 K/ul 04/25/2017 Cbc With Differential Ord2 Perkins ABS# 0.7 K/ul 04/25/2017 Cbc With Differential Ord2 Eos ABS# 0.2 K/ul 04/25/2017 Cbc With Differential Ord2 Baso ABS# 0.0 K/ul 04/25/2017 %Hba1C Fia399 % HbA1c 22090-8 6.1 % 04/25/2017 %Hba1C Jhs961 Gluc Ave 128 mg/dL 04/25/2017 Tsh Ord6 hTSH II 1.39 uIU/mL 04/25/2017 Lipid Ord30 CHOL 126 mg/dL 04/25/2017 Lipid Ord30 HDL 37.0 mg/dl 04/25/2017 Lipid Ord30 TRIG 77 mg/dL 04/25/2017 Lipid Ord30 LDL 74 mg/dL 04/25/2017 Lipid Ord30 C/HDL 3.4 Ratio 04/25/2017 Comp Metabolic Edm855 NA 139 mEq/L 04/25/2017 Comp Metabolic Uyq935 K 4.2 mEq/L 04/25/2017 Comp Metabolic Kjr974 CL 106 mEq/L 04/25/2017 Comp Metabolic Mld769 CO2 24.0 mEq/L 04/25/2017 Comp Metabolic Nnk253 AN ION GAP 13 04/25/2017 Comp Metabolic Uwo625 GL UCOSE 105 mg/dL 04/25/2017 Comp Metabolic Rpt739 Cr eat 1.6 mg/dL 04/25/2017 Comp Metabolic Qvf702 eG FR 46 ml/min/1.73m2 04/25 Comp Metabolic Xok062 BUN 21 mg/dL 04/25/2017 Comp Metabolic Zxq810 B/ C Ratio 13.2 Ratio 04/25/2017 Comp Metabolic Ppz972 CA LCIUM 9.5 mg/dL 04/25/2017 Comp Metabolic Trx069 AL K PHOS 43 U/L 04/25/2017 Comp Metabolic Mjj703 T(SGOT) 17 U/L 04/25/2017 Comp Metabolic Mmy884 AL T(SGPT) 16 U/L 04/25/2017 Comp Metabolic Kub193 BI LI T 0.5 mg/dL 04/25/2017 Comp Metabolic Phd495 AL BUMIN 3.5 g/dL 04/25/2017 Comp Metabolic Bkd453 TP RO 6.6 g/dL 04/25/2017 Comp Metabolic Ush539 GL OB 3.2 g/dL 04/25/2017 Comp Metabolic Ump618 A/ G Ratio 1.1 Ratio 04/25/2017 Comp Metabolic Nsa085 Os mo 281 mOsmo 04/25/2017 Lipid Ord30 [...] 31.8 pg 10/30/2016 Cbc With Differential Ord2 Perkins% 15.2 % 10/30/2016 Cbc With Differential Ord2 [...] 1.79 K/ul 10/30/2016 Cbc With Differential Ord2 Perkins ABS# 0.8 K/ul 10/30/2016 Cbc With Differential Ord2 Eos ABS# 0.1 K/ul 10/30/2016 Cbc With Differential Ord2 Baso ABS# 0.0 K/ul 10/30/2016 %Hba1C Tuc460 % HbA1c 34190-0 6.0 % 10/30/2016 %Hba1C Mib553 Gluc Ave 126 mg/dL 10/30/2016 Comp Metabolic Qpb779 NA 135 mEq/L 10/30/2016 Comp Metabolic Qpz587 K 4.4 mEq/L 10/30/2016 Comp Metabolic Qyz228 CL 102 mEq/L 10/30/2016 Comp Metabolic Osu801 CO2 27.0 mEq/L 10/30/2016 Comp Metabolic Lky835 AN ION GAP 10 10/30/2016 Comp Metabolic Coo372 GL UCOSE 101 mg/dL 10/30/2016 Comp Metabolic Yky357 Cr eat 1.6 mg/dL 10/30/2016 Comp Metabolic Xvk585 eG FR 47 ml/min/1.73m2 10/30 Comp Metabolic Uld556 BUN 19 mg/dL 10/30/2016 Comp Metabolic Tih753 B/ C Ratio 12.3 Ratio 10/30/2016 Comp Metabolic Voa224 CA LCIUM 10.2 mg/dL 10/30/2016 Comp Metabolic Ede573 AL K PHOS 54 U/L 10/30/2016 Comp Metabolic Pmb552 T(SGOT) 20 U/L 10/30/2016 Comp Metabolic Peo747 AL T(SGPT) 16 U/L 10/30/2016 Comp Metabolic Vbn439 BI LI T 0.7 mg/dL 10/30/2016 Comp Metabolic Tnl996 AL BUMIN 3.7 g/dL 10/30/2016 Comp Metabolic Laf379 TP RO 7.3 g/dL 10/30/2016 Comp Metabolic Kwr709 GL OB 3.6 g/dL 10/30/2016 Comp Metabolic Ptb297 A/ G Ratio 1.0 Ratio 10/30/2016 Comp Metabolic Ypl131 Os mo 272 mOsmo 10/30/2016 Tsh Ord6 hTSH II 1.03 uIU/mL 10/30/2016 Review of Systems System Result Effective Dates Constitutional No recent illness 04/30/2017 Constitutional No [...] PRSV 4 VA L 3 YRS+ CPT-4: 51670 06/21/2017 ADMIN INFLUENZA VIRU S VAC CPT-4: G0008 06/21/2017 Vital Signs Date Vital 04/30/2017 Blood Pressure 1: 120/70 Code: 8480-6 BMI: 32.2 Code: 21837-4 Heart Rate 1: 60 bpm Height: 5'8" SpO2: 98% Weight: 212 lbs 10/30/2016 Blood Pressure 1: 120/66 Code: 8480-6 BMI: 31.8 Code: 37582-8 Heart Rate 1: 58 bpm Height: 5'8" SpO2: 98% Weight: 209 lbs 07/31/2016 Blood Pressure 1: 140/66 Code: 8480-6 BMI: 31.6 Code: 73665-7 Heart Rate 1: 63 bpm Height: 5'8" SpO2: 95% Weight: 208 lbs Functional Status No Functional Status data History of Present Illness Symptom Name Status Resu lt Effective Date Notes hypertension Onset of Symptom during adulthood 04/30/2017 [...] Encounters Encounter Performer Deb taylor Codes Date 62107 EST. PATIENT, LEVEL III Diagnosis: Type 2 diabetes mellitus without complications[ICD10: E11.9] Diagnosis: Essential (primary) hypertension[ICD10: I10] [facility] CPT-4: 82334 04/30/2017 37062 EST. PATIENT, LEVEL III Diagnosis: Type 2 diabetes mellitus without complications[ICD10: E11.9] Diagnosis: Essential (primary) hypertension[ICD10: I10] [facility] CPT-4: 54842 10/30/2016 ([id number]) OFFICE VISI T [facility] - LEVEL 4 Diagnosis: Essential (primary) hypertension[ICD10: I10] Diagnosis: Type 2 diabetes mellitus without complications[ICD10: E11.9] Roberta Chiang MD, [facility] CPT-4: 65381 07/31/2016 Plan of Care Planned Activity Notes C odes Status Date Appointment: [facility] [address] [facility] ([facility] Moderate 09/13/2017 Appointment: Injection 06/21/2017 Patient Education: Patient Medication Summary Completed 06/21/2017 Visit Plan: Diabetes Mellitus - con rigo - per recent FSBS reports. I have [...] WPtel: [address] [facility] (30 min) Complex 04/30/2017 Patient Education: Patient [...] controlled. 10/30/2016 Appointment: [facility] [phone] [facility] ([facility]) Complex 10/30/2016 Patient Education: Patient [...] less controlled. 07/31/2016 Appointment: Roberta Mahmood WPtel: [facility] [place] New Patient 07/31/2016 Patient Education: Patient Medication Summary Completed 07/31/2016 Appointment: Mamta Medrano WPtel: [facility] New Patient 07/25/2016 Instructions Comment . Hypertension [...] are starting to become less controlled. . Hypertension - co ntinue with current [...]
--- NOTE | 2019-09-02 08:49 | OPERATIVE REPORT ---
DATE OF SERVICE: 08/06/2019 ADDENDUM PREOPERATIVE DIAGNOSES: Osteoporosis and acute T7 vertebral compression fracture. POSTOPERATIVE DIAGNOSES: Osteoporosis and acute T7 vertebral compression fracture. PROCEDURES PERFORMED: 1. T7 kyphoplasty. 2. T7 vertebral body biopsy. Job ID: [id number] DocumentID: [id number] Dictated Date: 09/02/2019 08:08:04 Steel Finisher Date: 09/02/2019 08:48:14 Dictated By: HENRY CABRAL DO
== END 2019-08-07 11:30 | disposition home or self-care (01) | DRG 516 ==
LOC: EDUNIT# 09:49 → ER 09:49 → 4TH 18:25
PROVIDERS: ADMIT Surgery; ATTEND Surgery
PROC: 0QU03JZ Supplement Lumbar Vertebra with Synthetic Substitute, Percutaneous Approach (ICD-10-PCS; 2019-08-06)
PROC: 0QS03ZZ Reposition Lumbar Vertebra, Percutaneous Approach (ICD-10-PCS; principal; 2019-08-06 16:57)
DX: S22.069A Unspecified fracture of T7-T8 vertebra, initial encounter for closed fracture (principal); S22.029A Unspecified fracture of second thoracic vertebra, initial encounter for closed fracture; S22.039A Unspecified fracture of third thoracic vertebra, initial encounter for closed fracture; K80.20 Calculus of gallbladder without cholecystitis without obstruction; L03.116 Cellulitis of left lower limb; S80.812A Abrasion, left lower leg, initial encounter; I25.10 Atherosclerotic heart disease of native coronary artery without angina pectoris; I25.2 Old myocardial infarction; I12.9 Hypertensive chronic kidney disease with stage 1 through stage 4 chronic kidney disease, or unspecified chronic kidney disease; N18.9 Chronic kidney disease, unspecified; R33.9 Retention of urine, unspecified; E78.00 Pure hypercholesterolemia, unspecified; E11.9 Type 2 diabetes mellitus without complications; M81.0 Age-related osteoporosis without current pathological fracture; M19.91 Primary osteoarthritis, unspecified site; E66.9 Obesity, unspecified; F41.9 Anxiety disorder, unspecified; I35.8 Other nonrheumatic aortic valve disorders; W11.XXXA Fall on and from ladder, initial encounter; Z68.29 Body mass index [BMI] 29.0-29.9, adult; Z95.5 Presence of coronary angioplasty implant and graft
CPT/HCPCS: 36415; 51702; 71045; 71250; 72146; 74176; 80053; 80061; 81000; 82150; 82550; 82553; 82962; 83690; 83735; 83880; 84484; 85025; 85027; 85610; 85730; 88307; 93005; 93041; 93306; 94760; 96361; 96365; 96375; 96376

== ENCOUNTER → 2019-10-15 | Outpatient (CLI) | payer MEDICARE ==
[~2019-10-15] VITALS: Ht 178 cm; Wt 93.0 kg
[~2019-10-15] MED LIST changes: +AMOX-358 PO; +ASPI-999 PO; +CATHETER FLUSH 10 ML SYR IV PRN; +CHOL20002 PO; +HYDR-3820 PO; +LACT1CAP87 PO; +METO50TA15 PO; +REGADENOSON 0.4 MG/5 ML SYR (LEXISCAN) IV ONE; +VITA400C60 PO
[2019-10-15 09:08] VITALS: BP 141/66
--- NOTE | 2019-10-15 19:19 | STRESS TEST ---
DATE OF SERVICE: 10/15/2019 LEXISCAN MYOVIEW STRESS TEST REPORT REFERRING PHYSICIAN: Bianca Chiang MD Baseline heart rate is 62. Baseline blood pressure 141/82. Baseline EKG is sinus rhythm with no ischemic changes. In summary, the patient was injected with 10.97 mCi of technetium-99 Myoview and the resting images were obtained. Then, the patient received 0.4 mg of Lexiscan followed by 30.6 mCi of technetium-99 Myoview. Throughout the test, there were no EKG changes. The resting and stress images were reviewed and compared in the short axis, horizontal long axis, and vertical long axis views. Review of the images showed good radiotracer uptake with no significant ischemia or infarction. SSS is 2, SDS 8, TID value 1.08. On the gated images, the left ventricle appeared to be normal size with normal contractility. Calculated ejection fraction 68%. CONCLUSION: 1. The patient tolerated Lexiscan well. 2. No ischemia or infarction on SPECT images. 3. Normal left ventricular size with normal contractility. Calculated ejection fraction 68%. Job ID: [id number] DocumentID: [id number] Dictated Date: 10/15/2019 15:11:42 First Front Ventilator Date: 10/15/2019 19:19:20 Dictated By: INDIRA YANES MD
== END ==
LOC: CARD 07:42
PROVIDERS: ATTEND Internal Medicine Cardiovascular Disease
DX: E78.2 Mixed hyperlipidemia (principal); I11.9 Hypertensive heart disease without heart failure; I25.10 Atherosclerotic heart disease of native coronary artery without angina pectoris; E11.9 Type 2 diabetes mellitus without complications
CPT/HCPCS: 78452; 93017